=== PATIENT | female | born 1945 | race Caucasian/White ===

== ENCOUNTER → 2016-11-17 | Outpatient (CLI) | payer OTHER ==
[~2016-11-17] MED LIST: CALC500C3 PO; CHOL1000 PO; DICL1GEL34 TOP; DIPH1TAB87 PO; INDSR/60 PO; LORA10TA6 PO; PANT20TA2 PO; RIZA10TA18 PO
[2016-11-17 15:00] LABS: ALB/GLOB RATIO 1.1 (0.9-2); ALT/SGPT 15 U/L (12-78); AST/SGOT 22 U/L (15-37); BLOOD UREA NITROGEN 16 mg/dl (7-18); BUN/CREATININE RATIO 18.7 (10-20); CALCIUM 8.9 mg/dl (8.5-10.1); CARBON DIOXIDE 23 mmol/L (21-32); CHLORIDE 104 mmol/L (98-107); CREATININE 0.83 mg/dl (0.60-1.20); GLUCOSE 82 mg/dl (70-99); SODIUM 138 mmol/L (136-145)
[2016-11-17 15:03] LABS: ALKALINE PHOSPHATASE 53 U/L (45-117)
== END | disposition home or self-care (01) ==
LOC: C.LABBC 09:14
PROVIDERS: ATTEND Internal Medicine
DX: R03.0 Elevated blood-pressure reading, without diagnosis of hypertension (principal)

== ENCOUNTER → 2017-02-18 | Outpatient (CLI) | payer OTHER ==
[~2017-02-18] MED LIST changes: +LORA10TA5 PO; -LORA10TA6 PO
--- NOTE | 2017-02-18 13:03 | MAMMOGRAPHY REPORT ---
BILATERAL DIGITAL SCREENING MAMMOGRAM WITH CAD: 02/18/2017 CLINICAL HISTORY: Routine screening. Patient has no complaints. TECHNIQUE: Current study was also evaluated with a Computer Aided Detection (CAD) system. Bilatera l CC and MLO views were obtained. COMPARISON: Comparison is made to exams dated: 02/13/2016 mammogram, 02/11/2015 mammogram, 08/07/2014 m ammogram, 02/04/2014 mammogram, 01/07/2014 mammogram, and 07/02/2013 mammogram - [facility]. BREAST COMPOSITION: There are scattered areas of fibroglandular density in both breasts. FINDINGS: No suspicious masses, calcifications, or areas of architectural distortion are noted in e ither breast. There has been no significant interval change compared to prior exams. Scattered bilat eral benign-appearing calcifications are not significantly changed. A biopsy marker clip is again n oted in the left upper outer quadrant. IMPRESSION: ACR BI-RADS CATEGORY 2: BENIGN There is no mammographic evidence of malignancy. A 1 year screening mammogram is recommended. The p atient will receive written notification of the results. Approximately 10% of breast cancers are not detected with mammography. A negative mammographic repor t should not delay biopsy if a clinically suggestive mass is present. Ramya Pérez M.D. ah/:02/18/2017 07:38:25 Restaurant Maintenance Technician: Yi WATERS(R)(M), [facility] letter sent: Normal 1/2 BI-RADS Code: ACR BI-RADS Category 2: Benign
== END | disposition home or self-care (01) ==
LOC: C.MAMM 07:10
PROVIDERS: ATTEND Internal Medicine
DX: Z12.31 Encounter for screening mammogram for malignant neoplasm of breast (principal)

== ENCOUNTER → 2017-06-10 | Outpatient (CLI) | payer OTHER ==
[~2017-06-10] MED LIST changes: +DIPH1TAB PO; -DIPH1TAB87 PO; +PANT20TA PO; -PANT20TA2 PO
[2017-06-10 10:07] LABS: ALT/SGPT 17 U/L (12-78); AST/SGOT 19 U/L (15-37); BLOOD UREA NITROGEN 22 mg/dl (7-18); BUN/CREATININE RATIO 29.4 (10-20); CALCIUM 9.2 mg/dl (8.5-10.1); CARBON DIOXIDE 32 mmol/L (21-32); CHLORIDE 103 mmol/L (98-107); CREATININE 0.76 mg/dl (0.60-1.20); GLUCOSE 79 mg/dl (70-99); POTASSIUM 3.8 mmol/L (3.5-5.1); SODIUM 137 mmol/L (136-145)
[2017-06-10 10:10] LABS: ALB/GLOB RATIO 1.1 (0.9-2); ALKALINE PHOSPHATASE 64 U/L (45-117)
== END | disposition home or self-care (01) ==
LOC: C.LAB 09:01
PROVIDERS: ATTEND Internal Medicine
DX: M81.0 Age-related osteoporosis without current pathological fracture (principal)

== ENCOUNTER 2017-06-18 18:04 | Inpatient (IN) | payer OTHER ==
[~2017-06-18] VITALS: Ht 157.5 cm; Wt 67.5 kg
[~2017-06-18 18:04] MED LIST changes: -CALC500C3 PO; -CHOL1000 PO; -DICL1GEL34 TOP; -INDSR/60 PO
[2017-06-18] MEDS ORDERED: SODIUM CHLORIDE 0.9% 1000ML 1,000 ML IV STA (18:25)
[2017-06-18 18:44] LABS: BASO % 0.5 %; BASO ABS # 0.03 K/uL (0-0.2); COMPLETE YES; EOS % 2.8 %; HEMATOCRIT 38.4 % (37-47); IG% 0.4 %; LYMPH % 34.6 %; LYMPH ABS # 1.97 K/uL (1.2-3.4); MEAN CELL VOLUME 91.2 fL (80-100); MEAN CORPUSCULAR HEMOGLOBIN 30.6 pg (25-34); MEAN CORPUSCULAR HGB CONC 33.6 g/dl (32-36); MEAN PLATELET VOLUME 9.4 fL (7.4-10.4); MONO % 11.6 %; NEUT % 50.1 %; PLATELET COUNT 234 K/uL (130-400); RED BLOOD COUNT 4.21 M/uL (4.2-5.4); WHITE BLOOD COUNT 5.69 K/uL (4.8-10.8)
[2017-06-18 18:54] LABS: PARTIAL THROMBOPLASTIN RATIO 1.1; PROTHROMBIN TIME (PATIENT) 10.5 SECONDS (9.0-12.0)
[2017-06-18 19:02] LABS: ALT/SGPT 18 U/L (12-78); AST/SGOT 20 U/L (15-37); BLOOD UREA NITROGEN 25 mg/dl (7-18); BUN/CREATININE RATIO 24.8 (10-20); CALCIUM 8.9 mg/dl (8.5-10.1); CARBON DIOXIDE 27 mmol/L (21-32); CHLORIDE 102 mmol/L (98-107); GLUCOSE 93 mg/dl (70-99); MAGNESIUM 2.2 mg/dl (1.8-2.4); POTASSIUM 4.1 mmol/L (3.5-5.1); SODIUM 135 mmol/L (136-145)
[2017-06-18 19:13] LABS: ALKALINE PHOSPHATASE 86 U/L (45-117)
--- NOTE | 2017-06-18 19:26 | DIAGNOSTIC IMAGING REPORT ---
CT HEAD WITHOUT CONTRAST (CT) CLINICAL HISTORY: Syncope. Head trauma. COMPARISON STUDY: 06/06/2015 TECHNIQUE: Axial CT of the brain is performed from the vertex to the skull base. IV contrast was not administered for this examination. A dose lowering technique was utilized adhering to the principles of ALARA. CT DOSE: 1067.62 mGy.cm FINDINGS: No intra or extra-axial mass lesions are visualized. There is no CT evidence of acute cortical infarction. There is no evidence of midline shift. There is no acute hemorrhage. No calvarial fractures are visualized. There are patchy white matter hypodensities likely on a small vessel basis. There is no evidence of pathologic ventricular dilatation. There is no evidence of acute sinusitis. There is a right parietal scalp hematoma. IMPRESSION: 1. Right parietal scalp hematoma 2. No evidence of acute intracranial injury Electronically signed by: Sanford Bronson M.D. 06/18/2017 7:24 PM Dictated Date/Time: 06/18/2017 7:22 PM
--- NOTE | 2017-06-18 19:28 | DIAGNOSTIC IMAGING REPORT ---
CT OF THE CERVICAL SPINE CLINICAL HISTORY: Neck pain status post trauma COMPARISON STUDY: May 22, 2015 CT DOSE: TECHNIQUE: CT scan of the cervical spine was performed from the skull base to the thoracic inlet. Images are reviewed in the axial, sagittal, and coronal planes. IV contrast was not administered for this examination. A dose lowering technique was utilized adhering to the principles of ALARA. FINDINGS: The visualized portions of the lung apices reveal no evidence of pneumothorax. There is a trace right mastoid effusion, similar to the prior study The prevertebral soft tissues are normal. No fractures or subluxations are visualized. There are multilevel degenerative changes IMPRESSION: No evidence of acute fracture or traumatic subluxation. Electronically signed by: Sanford Bronson M.D. 06/18/2017 7:27 PM Dictated Date/Time: 06/18/2017 7:24 PM
[2017-06-18] MEDS ORDERED: CHOL1000 PO (19:37)
[2017-06-18] MEDS ORDERED: CALC500C3 PO (19:37)
[2017-06-18] MEDS ORDERED: INDSR/60 PO (19:37)
[2017-06-18] MEDS ORDERED: DICL1GEL34 TOP (19:37)
[2017-06-18] MEDS ORDERED: ALUMINUM/MAGNESIUM/SIMETH (MAALOX MAX) 30 ML UDC PO PRN (20:30)
[2017-06-18] MEDS ORDERED: POLYETHYLENE (MIRALAX) 17 GM PACK PO PRN (20:30)
[2017-06-18] MEDS ORDERED: ZOLPIDEM TARTRATE 5 MG TAB PO PRN (20:30)
[2017-06-18] MEDS ORDERED: MAGNESIUM HYDROXIDE SUSP 30 ML UDC PO PRN (20:30)
[2017-06-18] MEDS ORDERED: ONDANSETRON INJ 2 MG/ML 2 ML VIAL IV PRN (20:30)
[2017-06-18] MEDS ORDERED: HydrALAZINE HCL 20 MG/ML VIAL IV. PRN (20:45)
--- NOTE | 2017-06-18 20:47 | DIAGNOSTIC IMAGING REPORT ---
CHEST ONE VIEW PORTABLE CLINICAL HISTORY: Weakness COMPARISON STUDY: No previous studies for comparison. FINDINGS: The study is rotated. The heart is at the upper limits of normal in size. There is no failure. There is no focal pulmonary consolidation. There are no pleural effusions.[ IMPRESSION: AP portable study. No acute findings. Electronically signed by: Sanford Bronson M.D. 06/18/2017 8:46 PM Dictated Date/Time: 06/18/2017 8:45 PM
[2017-06-18] MEDS ORDERED: HydrALAZINE HCL 20 MG/ML VIAL ONE (20:52)
--- NOTE | 2017-06-18 20:58 | History and Physical ---
History & Physical Date & Time of Service: Jun 18, 2017 at 20:37 Chief Complaint: Syncope, Fall, Primary Care Physician: Tiago Martinez M.D. History of Present Illness Source: patient 72 y/o F Hx HTN, fall with LOC 05/29 leading to a subdural hematoma. Pt was outdoors when she may have become lightheaded and collapsed on the ground. She suffered head trauma and brief LOC although it is unclear if syncope preceded LOC or if she fell and lost consciousness due to head trauma. She presented with identical complaints 05/29. The H&P reviewed from that time states that she had suffered a mechanical fall followed by head trauma and LOC. When EMS arrived at the seen, it is reported that she was exhibiting an irregular, tachycardic rhythm - suspected AF. This was not recorded on a rhythm strip and she is in a normal sinus rhythm on arrival to the ER. Initial labs reveal a slightly elevated TSH. She suffered a R scalp hematoma. Past Medical/Surgical History Medical Problems: (1) Chronic headaches Status: Chronic (2) HTN (hypertension) Status: Chronic (3) Intracranial bleed Status: Resolved Family History No significant family history Social History Smoking Status: Never Smoker Drug Use: none Marital Status: Occupational Status: retired Multi-Drug Resistant Organisms History of MDRO: No Allergies Coded Allergies: Sulfa Antibiotics (Verified Allergy, Mild, RASH, 06/18/17) Penicillins (Verified Allergy, Unknown, RASH, 06/18/17) Home Medications Scheduled Calcium Carbonate (Tums), 1 TAB PO BID Cholecalciferol (Vitamin D3), 1 TAB PO HS Diclofenac Sodium (Topical) (Diclofenac Sodium), 1 APPLN TOP HS Loratadine (Claritin), 10 MG PO DAILY Pantoprazole Sodium (Protonix), 20 MG PO DAILY Propranolol Hcl (Propranolol ER), 60 MG PO HS Scheduled PRN Diphenhydramine Hcl (Benadryl Allergy), 25 MG PO UD PRN for ALLERGIC REACTION Rizatriptan Benzoate (Maxalt), 10 MG PO for Pain Review of Systems Constitutional: + fatigue, + problem reported (insomnia), No fever, No chills, No sweats, No weight loss, No weakness Eyes: No worsening of vision, No eye pain ENT: No hearing loss, No nasal symptoms Respiratory: No cough, No sputum, No wheezing Cardiovascular: No chest pain, No PND Abdomen: No pain, No nausea, No vomiting Musculoskeletal: No joint pain Genitourinary - Female: No dysuria, No urinary frequency, No urinary urgency Neurologic: + problem reported (LOC - syncope vs head trauma-related), No memory loss Psychiatric: + insomnia, No depression symptoms Endocrine: No fatigue, No excessive thirst Hematologic / Lymphatic: No abnormal bleeding/bruising Integumentary: + problem reported (dry skin), No rash Allergic / Immunologic: No environmental allergies Physical Exam Vital Signs Date Time Temp Pulse Resp B/P (MAP) Pulse Ox O2 Delivery O2 Flow Rate FiO2 06/18/17 19:10 61 16 170/80 98 Room Air 06/18/17 18:36 61 16 200/110 98 Room Air 58 190/80 56 170/70 06/18/17 18:12 37.0 62 20 220/100 99 Room Air 06/18/17 18:09 60 General Appearance: WD/WN, no apparent distress Head: normocephalic, + pertinent finding (Large hematoma - R parietal) Eyes: normal inspection, PERRL, EOMI ENT: normal ENT inspection, pharynx normal Neck: supple, thyroid normal, no JVD, no carotid bruits Respiratory/Chest: chest non-tender, lungs clear, normal breath sounds, no respiratory distress, no accessory muscle use Cardiovascular: regular rate, rhythm, no edema, no gallop Abdomen/GI: normal bowel sounds, non tender, soft Back: normal inspection, no CVA tenderness, + pertinent finding (Marked kyphosis) Neurologic/Psych: 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, no motor/sensory deficits, alert, normal mood/affect, normal reflexes, oriented x 3 Skin: normal color, warm/dry Diagnostics Laboratory Results Results Past 24 Hours Test 06/18/17 18:30 Range/Units White Blood Count 5.69 4.8-10.8 K/uL Red Blood Count 4.21 4.2-5.4 M/uL Hemoglobin 12.9 12.0-16.0 g/dL Hematocrit 38.4 37-47 % Mean Corpuscular Volume 91.2 80-100 fL Mean Corpuscular Hemoglobin 30.6 25-34 pg Mean Corpuscular Hemoglobin Concent 33.6 32-36 g/dl Platelet Count 234 130-400 K/uL Mean Platelet Volume 9.4 7.4-10.4 fL Neutrophils (%) (Auto) 50.1 % Lymphocytes (%) (Auto) 34.6 % Monocytes (%) (Auto) 11.6 % Eosinophils (%) (Auto) 2.8 % Basophils (%) (Auto) 0.5 % Neutrophils # (Auto) 2.85 1.4-6.5 K/uL Lymphocytes # (Auto) 1.97 1.2-3.4 K/uL Monocytes # (Auto) 0.66 0.11-0.59 K/uL Eosinophils # (Auto) 0.16 0-0.5 K/uL Basophils # (Auto) 0.03 0-0.2 K/uL RDW Standard Deviation 42.9 36.4-46.3 fL RDW Coefficient of Variation 12.9 11.5-14.5 % Immature Granulocyte % (Auto) 0.4 % Immature Granulocyte # (Auto) 0.02 0.00-0.02 K/uL Prothrombin Time 10.5 9.0-12.0 SECONDS Prothromb Time International Ratio 1.0 0.9-1.1 Activated Partial Thromboplast Time 27.5 21.0-31.0 SECONDS Partial Thromboplastin Ratio 1.1 Sodium Level 135 136-145 mmol/L Potassium Level 4.1 3.5-5.1 mmol/L Chloride Level 102 98-107 mmol/L Carbon Dioxide Level 27 21-32 mmol/L Anion Gap 6.0 3-11 mmol/L Blood Urea Nitrogen 25 7-18 mg/dl Creatinine 1.00 0.60-1.20 mg/dl Est Creatinine Clear Calc Drug Dose 46.0 ml/min Estimated GFR () 64.3 Estimated GFR (Non- 55.5 BUN/Creatinine Ratio 24.8 10-20 Random Glucose 93 70-99 mg/dl Calcium Level 8.9 8.5-10.1 mg/dl Magnesium Level 2.2 1.8-2.4 mg/dl Total Bilirubin 0.3 0.2-1 mg/dl Direct Bilirubin < 0.1 0-0.2 mg/dl Aspartate Amino Transf (AST/SGOT) 20 15-37 U/L Alanine Aminotransferase (ALT/SGPT) 18 12-78 U/L Alkaline Phosphatase 86 45-117 U/L Total Protein 7.3 6.4-8.2 gm/dl Albumin 3.7 3.4-5.0 gm/dl Lipase 152 73-393 U/L Thyroid Stimulating Hormone (TSH) 7.920 0.300-4.500 uIu/ml Diagnostic Radiology CT cervical spine: : No evidence of acute fracture or traumatic subluxation CT head: 1. Right parietal scalp hematoma 2. No evidence of acute intracranial injury EKG NSR, LVH Impression Assessment and Plan 72 y/o F Hx HTN, fall with LOC 05/29 leading to a subdural hematoma. Pt was outdoors when she may have become lightheaded and collapsed on the ground. She suffered head trauma and brief LOC although it is unclear if syncope preceded LOC or if she fell and lost consciousness due to head trauma. She presented with identical complaints 05/29. The H&P reviewed from that time states that she had suffered a mechanical fall followed by head trauma and LOC. When EMS arrived at the seen, it is reported that she was exhibiting an irregular, tachycardic rhythm - suspected AF. This was not recorded on a rhythm strip and she is in a normal sinus rhythm on arrival to the ER. Initial labs reveal a slightly elevated TSH. 1) Syncope vs head trauma and LOC/concussion - this is the second such episode in 1 month and there was some concern for tachyarrhythmia by EMS on initial evaluation. She will be monitored on telemetry overnight and we will obtain an echo. She may need a halter monitor going forward. 2) HTN - an elevated BP has coincided with both hospitalizations. She does not normally take an antihypertensive. She has LVH on her EKG which may indicate that this is chronic and poorly controlled. We will provide PRN Hydralazine and continue her HS Propranolol which is primarily prescribed for migraines. An echo is pending and her pressure should be trended to determine if she needs additional outpt Tx. 3) Elevated TSH - she does report some dry skin and insomnia but not constipation. This may however, make her susceptible to AF. We will obtain a T3 , T4 and likely defer to her PCP for treatment. Full code - SCDs only due to head trauma/hematoma Total time for this admit including review of labs, meds, EKG, imaging - discussion with pt and ER attending - 35 min Level of Care Telemetry Resuscitation Status FULL RESUSCITATION VTE Prophylaxis VTE Risk Assessment Done? Y/N: Yes Risk Level: Low Given or contraindicated: SCD's
[2017-06-18] MEDS ORDERED: IV FLUIDS COMPLETED PRN (21:00)
[2017-06-18 22:13] VITALS: BP 151/68; PULSE 64; TEMP 37.2; O2SAT 97; Ht 157.5 cm; Wt 67.5 kg
[2017-06-18] MEDS: PROPRANOLOL HCL 60 MG LA CAP PO SCH (22:58)
[2017-06-18] MEDS: CALCIUM CARBONATE 500 MG CHEWABLE PO SCH (22:58)
[2017-06-18] MEDS: CHOLECALCIFEROL 1000 INTER.UNIT TAB PO SCH (22:58)
[2017-06-18] MEDS: ACETAMINOPHEN 325 MG TAB PO PRN (22:59)
[2017-06-18 23:21] LABS: URINE APPEARANCE CLEAR (CLEAR); URINE BILIRUBIN NEG (NEG); URINE COLOR YELLOW; URINE EPITHELIAL CELL AUTO >30 /lpf (0-5); URINE NITRITE NEG (NEG); URINE PH 7.5 (4.5-7.5); URINE SPECIFIC GRAVITY 1.014 (1.000-1.030); UROBILINOGEN NEG (NEG)
[2017-06-18 23:23] LABS: MANUAL MICROSCOPIC REQUIRED? NO; REVIEW REQ? NO
[2017-06-19] VITALS: BP 113/65; PULSE 57; TEMP 36.6; O2SAT 98
--- NOTE | 2017-06-19 | EMERGENCY ROOM VISIT NOTE ---
History Report prepared by Arlet: Sandy Stewart Under the Supervision of: Dr. Clive Mcfadden M.D. First contact with patient: 18:09 Stated Complaint: SYNCOPE, FALL, History of Present Illness The patient is a 72 year old female who presents to the Emergency Room with complaints of a sudden syncopal episode that occurred just prior to arrival. Per nursing staff, the patient was walking [place] when she suddenly fell, had a brief loss of consciousness, and hit her head. Nursing staff reports that the patient was evaluated by EMS and was found to be in atrial fibrillation, however on monitor here she was found to be in normal sinus rhythm, and prehospital EKG was not available to us. Nursing staff reports that the patient injured her right elbow, reporting an abrasion. Nursing staff states that the patient has been complaining of upper back pain and was placed in a cervical collar and brought to the emergency department for further treatment and evaluation. The patient states that she parked her car downtown and was walking towards [email or web address]. She states that she thought she had crossed the street but is unsure now. The patient states that recently she has been under increased stress. She reports that in the past she has had episodes of syncope due to various events. The patient reports that in the past she has become dizzy and lost consciousness. The patient reports a headache at this time due to the fall. Pt denies fevers, chills, diaphoresis, visual changes, neck pain, chest pain, breathing difficulties, nausea, vomiting , abdominal pain, melena, hematochezia, urinary symptoms, numbness, weakness, lymphadenopathy, rash, or other complaints. Source of History: patient Onset: prior to arrival Position: other (global) Quality: other (syncopal episode) Timing: other (sudden) Associated Symptoms: + headache, + back pain Review of Systems See HPI for pertinent positives and negatives. A total of ten systems were reviewed and were otherwise negative. Past Medical & Surgical Medical Problems: (1) Chronic headaches (2) Head trauma (3) HTN (hypertension) (4) Intracranial bleed (5) Osteoporosis (6) Syncope Family History No significant family history Social History Smoking Status: Never Smoker Alcohol Use: none Drug Use: none Marital Status: Housing Status: lives alone Occupation Status: retired Current/Historical Medications Scheduled Calcium Carbonate (Tums), 1 TAB PO BID Cholecalciferol (Vitamin D3), 1 TAB PO HS Diclofenac Sodium (Topical) (Diclofenac Sodium), 1 APPLN TOP HS Loratadine (Claritin), 10 MG PO DAILY Pantoprazole Sodium (Protonix), 20 MG PO DAILY Propranolol Hcl (Propranolol ER), 60 MG PO HS Scheduled PRN Diphenhydramine Hcl (Benadryl Allergy), 25 MG PO UD PRN for ALLERGIC REACTION Rizatriptan Benzoate (Maxalt), 10 MG PO for Pain Allergies Coded Allergies: Sulfa Antibiotics (Verified Allergy, Mild, RASH, 06/18/17) Penicillins (Verified Allergy, Unknown, RASH, 06/18/17) Physical Exam Vital Signs Date Time Temp Pulse Resp B/P (MAP) Pulse Ox O2 Delivery O2 Flow Rate FiO2 06/18/17 19:10 61 16 170/80 98 Room Air 06/18/17 18:36 61 16 200/110 98 Room Air 58 190/80 56 170/70 06/18/17 18:12 37.0 62 20 220/100 99 Room Air 06/18/17 18:09 60 Physical Exam GENERAL: Awake, alert, well appearing, no distress HEAD: Normocephalic, atraumatic. No hong sign. No raccoon eyes. EYES: Normal conjunctiva. PERRL. EARS: External ears normal. Right TM normal. Left TM normal. NOSE: Atraumatic OROPHARYNX: Lips, tongue, and mucosa unremarkable. No erythema or exudate. NECK: Cervical collar in place, no tenderness posteriorly. No tracheal deviation or JVD. No posterior midline tenderness. No step offs noted. RESPIRATORY: CTA bilaterally CARDIAC: Regular rate, normal rhythm. ABDOMEN: Inspection reveals no abnormalities. Soft, non distended. No tenderness to palpation. No hernias. BACK: No midline step offs or tenderness to palpation. Unremarkable. PELVIS: Stable to rock. SKIN: Normal. LYMPH: No adenopathy. MUSCULOSKELETAL: Abrasion and contusion to the right elbow, no edema, good range of motion. Left upper and bilateral lower extremities are atraumatic. NEURO: GCS 15. Normal sensorium. No sensory or motor deficits noted. Medical Decision & Procedures ER Provider Diagnostic Interpretation: Radiology results as stated below per my review and radiologist interpretation: CT HEAD WITHOUT CONTRAST (CT) CLINICAL HISTORY: Syncope. Head trauma. COMPARISON STUDY: 06/06/2015 TECHNIQUE: Axial CT of the brain is performed from the vertex to the skull base. IV contrast was not administered for this examination. A dose lowering technique was utilized adhering to the principles of ALARA. CT DOSE: 1067.62 mGy.cm FINDINGS: No intra or extra-axial mass lesions are visualized. There is no CT evidence of acute cortical infarction. There is no evidence of midline shift. There is no acute hemorrhage. No calvarial fractures are visualized. There are patchy white matter hypodensities likely on a small vessel basis. There is no evidence of pathologic ventricular dilatation. There is no evidence of acute sinusitis. There is a right parietal scalp hematoma. IMPRESSION: 1. Right parietal scalp hematoma 2. No evidence of acute intracranial injury Electronically signed by: Sanford Bronson M.D. 06/18/2017 7:24 PM Dictated Date/Time: 06/18/2017 7:22 PM CHEST ONE VIEW PORTABLE CLINICAL HISTORY: Weakness COMPARISON STUDY: No previous studies for comparison. FINDINGS: The study is rotated. The heart is at the upper limits of normal in size. There is no failure. There is no focal pulmonary consolidation. There are no pleural effusions.[ IMPRESSION: AP portable study. No acute findings. Electronically signed by: Sanford Bronson M.D. 06/18/2017 8:46 PM Dictated Date/Time: 06/18/2017 8:[address] OF THE CERVICAL SPINE CLINICAL HISTORY: Neck pain status post trauma COMPARISON STUDY: May 22, 2015 CT DOSE: TECHNIQUE: CT scan of the cervical spine was performed from the skull base to the thoracic inlet. Images are reviewed in the axial, sagittal, and coronal planes. IV contrast was not administered for this examination. A dose lowering technique was utilized adhering to the principles of ALARA. FINDINGS: The visualized portions of the lung apices reveal no evidence of pneumothorax. There is a trace right mastoid effusion, similar to the prior study The prevertebral soft tissues are normal. No fractures or subluxations are visualized. There are multilevel degenerative changes IMPRESSION: No evidence of acute fracture or traumatic subluxation. Electronically signed by: Sanford Bronson M.D. 06/18/2017 7:27 PM Dictated Date/Time: 06/18/2017 7:24 PM Laboratory Results 06/18/17 18:30 Red Blood Count 4.21, Mean Corpuscular Volume 91.2, Mean Corpuscular Hemoglobin 30.6, Mean Corpuscular Hemoglobin Concent 33.6, Mean Platelet Volume 9.4, Neutrophils (%) (Auto) 50.1, Lymphocytes (%) (Auto) 34.6, Monocytes (%) (Auto) 11.6, Eosinophils (%) (Auto) 2.8, Basophils (%) (Auto) 0.5, Neutrophils # (Auto ) 2.85, Lymphocytes # (Auto) 1.97, Monocytes # (Auto) 0.66, Eosinophils # (Auto ) 0.16, Basophils # (Auto) 0.03 06/18/17 18:30 Test 06/18/17 18:30 White Blood Count 5.69 K/uL (4.8-10.8) Red Blood Count 4.21 M/uL (4.2-5.4) Hemoglobin 12.9 g/dL (12.0-16.0) Hematocrit 38.4 % (37-47) Mean Corpuscular Volume 91.2 fL (80-100) Mean Corpuscular Hemoglobin 30.6 pg (25-34) Mean Corpuscular Hemoglobin Concent 33.6 g/dl (32-36) Platelet Count 234 K/uL (130-400) Mean Platelet Volume 9.4 fL (7.4-10.4) Neutrophils (%) (Auto) 50.1 % Lymphocytes (%) (Auto) 34.6 % Monocytes (%) (Auto) 11.6 % Eosinophils (%) (Auto) 2.8 % Basophils (%) (Auto) 0.5 % Neutrophils # (Auto) 2.85 K/uL (1.4-6.5) Lymphocytes # (Auto) 1.97 K/uL (1.2-3.4) Monocytes # (Auto) 0.66 K/uL (0.11-0.59) Eosinophils # (Auto) 0.16 K/uL (0-0.5) Basophils # (Auto) 0.03 K/uL (0-0.2) RDW Standard Deviation 42.9 fL (36.4-46.3) RDW Coefficient of Variation 12.9 % (11.5-14.5) Immature Granulocyte % (Auto) 0.4 % Immature Granulocyte # (Auto) 0.02 K/uL (0.00-0.02) Prothrombin Time 10.5 SECONDS (9.0-12.0) Prothromb Time International Ratio 1.0 (0.9-1.1) Activated Partial Thromboplast Time 27.5 SECONDS (21.0-31.0) Partial Thromboplastin Ratio 1.1 Anion Gap 6.0 mmol/L (3-11) Est Creatinine Clear Calc Drug Dose 46.0 ml/min Estimated GFR () 64.3 Estimated GFR (Non- 55.5 BUN/Creatinine Ratio 24.8 (10-20) Calcium Level 8.9 mg/dl (8.5-10.1) Magnesium Level 2.2 mg/dl (1.8-2.4) Total Bilirubin 0.3 mg/dl (0.2-1) Direct Bilirubin < 0.1 mg/dl (0-0.2) Aspartate Amino Transf (AST/SGOT) 20 U/L (15-37) Alanine Aminotransferase (ALT/SGPT) 18 U/L (12-78) Alkaline Phosphatase 86 U/L (45-117) Total Protein 7.3 gm/dl (6.4-8.2) Albumin 3.7 gm/dl (3.4-5.0) Lipase 152 U/L (73-393) Thyroid Stimulating Hormone (TSH) 7.920 uIu/ml (0.300-4.500) Free Thyroxine 1.18 ng/dl (0.80-1.60) Total Triiodothyronine 0.89 ng/ml (0.60-1.81) Laboratory results reviewed by me Medications Administered Medications (Trade) Dose Ordered Sig/Racheal Route Start Time Stop Time Status Last Admin Dose Admin Sodium Chloride 1,000 ml @ 125 mls/hr Q8H STAT IV 06/18/17 18:25 06/18/17 21:54 DC 06/18/17 18:48 125 MLS/HR Acetaminophen (Tylenol Tab) 650 mg Q4H PRN PO 06/18/17 20:30 07/18/17 20:29 06/18/17 22:59 650 MG ECG Indication: syncope Rate (beats per minute): 62 Rhythm: normal sinus Findings: nonspecific-ST abn, no acute ischemic change, other (LVH) ED Course 1818: The patient was evaluated in room C5. A complete history and physical exam was performed. 1824: Ordered Sodium Chloride 1000 ml @ 125 mls/hr IV. 2009: I reevaluated the patient and she is doing well. I removed her cervical collar and she can successfully move her neck around. I discussed all the exam findings with her and I discussed the treatment plan. She verbalized complete understanding and agreement. She is going to be evaluated the treatment. 2022: I discussed the patients case with NUBIA Ratliff. He is going to evaluate the patient for further treatment. Medical Decision Triage Nursing notes reviewed. The patient's presentation and history were concerning for fall, CHI, and possible syncope. EMS also noted that the patient may have had a dysrhythmia but did not capture a 12-lead. Etiologies such as intracerebral event, vasovagal event, infection, hypoglycemia , electrolyte abnormalities, cardiac sources, toxicologic, neurologic, as well as others were entertained. Patient was evaluated. She was in a cervical collar. She had an ECG performed which revealed normal sinus rhythm. Blood work was obtained and imaging was ordered. The patient had an unremarkable CBC, chemistry panel, LFTs, and TSH. CT scan of the head and cervical spine did not reveal any significant findings other than a scalp hematoma. Patient was hydrated. Given the possible dysrhythmia and syncope further evaluation and management in the hospital will be necessary. Consultation made with internal medicine. The patient was evaluated in the Emergency Room for further management. Head Trauma GCS Score: 15 Medication Reconcilliation Current Medication List: was personally reviewed by me Blood Pressure Screening Patient's blood pressure: Elevated blood pressure Blood pressure disposition: Referred to PCP Consults Time Called: 2014 Consulting Physician: NUBIA Ratliff Returned Call: 2022 I discussed the patients case with NUBIA Ratliff. He is going to evaluate the patient for further treatment. Impression Primary Impression: Syncope Additional Impressions: Closed head injury questionable arrhythmia Scribe Attestation The scribe's documentation has been prepared under my direction and personally reviewed by me in its entirety. I confirm that the note above accurately reflects all work, treatment, procedures, and medical decision making performed by me. Departure Information Dispostion Being Evaluated By Hospitalist Referrals Tiago Martinez M.D. (PCP) Problem Qualifiers
[2017-06-19 04:54] VITALS: BP 106/64; PULSE 47; TEMP 36.8; O2SAT 97
[2017-06-19 07:24] VITALS: BP 136/62; PULSE 48; TEMP 36.8; O2SAT 97
[2017-06-19] MEDS: CALCIUM CARBONATE 500 MG CHEWABLE PO SCH ×2 (08:18→20:51)
[2017-06-19] MEDS: LORATADINE 10 MG TAB PO SCH (08:18)
[2017-06-19] MEDS: PANTOprazole SOD 40 MG TAB PO SCH (08:18)
--- NOTE | 2017-06-19 09:57 | Cardiology Consultation ---
Cardiology Consultation Date of Consultation: Jun 19, 2017. Requesting Physician: Dr. Briceño Reason for Consultation: Syncope, tachycardia Pt evaluation today including: conversation w/ patient, physical exam, lab review, review of studies, review of inpatient medication list History of Present Illness This is a 72-year-old woman who presented with an episode of loss of consciousness. She also has a history of reported loss of consciousness in May 2016 resulting in a fall and a subdural hematoma, at that time was felt that she had a mechanical fall followed by head trauma and there is a possibility she had atrial fibrillation at that time. She now presents with another episode , she was walking across the street when she became lightheaded and collapsed hitting her head and having brief loss of consciousness, although that particular sequence may not be correct as she only recalls walking down the street and then being picked up by rescue. There is mention in the chart that EMS found her in atrial fibrillation, as on the prior episode, however an EMS report is not available as yet in the chart. In the emergency room she was in sinus rhythm. She reports having episodes of syncope in the past, she believe she had perhaps 3 episodes over 2 or 3 years, never having them when she was younger. She may have intermittent lightheadedness although it is not clear, she does not have palpitations either during these episodes or at other times. She does not have exertional chest discomfort. She does not have shortness of breath or difficulty with exertion. Past Medical/Surgical History (1) Intracranial bleed (2) Syncope (3) HTN (hypertension) (4) Osteoporosis Family History No significant family history Social History Smoking Status: Never Smoker History of Alcohol Use: Yes (rarely, socially) Review of Systems Constitutional: No fever, No weight loss, No weakness Respiratory: No cough, No wheezing, No shortness of breath, No dyspnea on exertion Cardiac: + see HPI, No chest pain, No orthopnea, No PND, No edema, No palpitations Abdomen: No pain, No nausea, No vomiting, No diarrhea, No GI bleeding Female : No problem reported Neurologic: No paralysis, No weakness, No numbness/tingling, No balance problems Heme: No abnormal bleeding/bruising, No clotting problems Endo: No fatigue Skin: No problem reported All Other Systems: Reviewed and Negative Allergies Coded Allergies: Sulfa Antibiotics (Verified Allergy, Mild, RASH, 06/18/17) Penicillins (Verified Allergy, Unknown, RASH, 06/18/17) Medications Current Inpatient Medications Medications (Trade) Dose Ordered Sig/Racheal Route Start Time Stop Time Status Last Admin Dose Admin Calcium Carbonate (Tums Chew Tab) 500 mg BID PO 06/18/17 21:00 07/18/17 20:59 06/19/17 08:18 500 MG Cholecalciferol (Vitamin D Tab) 1,000 inter.unit HS PO 06/18/17 21:00 07/18/17 20:59 06/18/17 22:58 1,000 INTER.UNIT Loratadine (Claritin Tab) 10 mg DAILY PO 06/19/17 09:00 07/19/17 08:59 06/19/17 08:18 10 MG Propranolol HCl (Inderal La Cap) 60 mg HS PO 06/18/17 21:00 07/18/17 20:59 06/18/17 22:58 60 MG Pantoprazole Sodium (Protonix Tab) 40 mg DAILY PO 06/19/17 09:00 07/19/17 08:59 06/19/17 08:18 40 MG Acetaminophen (Tylenol Tab) 650 mg Q4H PRN PO 06/18/17 20:30 07/18/17 20:29 06/18/17 22:59 650 MG Al Hydrox/Mg Hydrox/Simethicone (Maalox Max Susp) 15 ml Q4H PRN PO 06/18/17 20:30 07/18/17 20:29 Magnesium Hydroxide (Milk Of Magnesia Susp) 30 ml Q12H PRN PO 06/18/17 20:30 07/18/17 20:29 Zolpidem Tartrate (Ambien Tab) 2.5 mg HSZ PRN PO 06/18/17 20:30 07/18/17 20:29 Ondansetron HCl (Zofran Inj) 4 mg Q6H PRN IV 06/18/17 20:30 07/18/17 20:29 Polyethylene (Miralax Powder Packet) 17 gm DAILY PRN PO 06/18/17 20:30 07/18/17 20:29 Hydralazine HCl (HydrALAZINE INJ) 5 mg Q8H PRN IV. 06/18/17 20:45 07/18/17 20:44 Miscellaneous (Iv Fluids Completed) 1 ea PRN PRN N/A 06/18/17 21:00 06/18/18 20:59 Physical Exam Vital Signs Past 12 Hours Date Time Temp Pulse Resp B/P (MAP) Pulse Ox O2 Delivery O2 Flow Rate FiO2 06/19/17 07:24 36.8 48 16 136/62 (86) 97 Room Air 06/19/17 04:54 36.8 47 18 106/64 (78) 97 Room Air 06/19/17 04:19 Room Air 06/19/17 00:03 Room Air 06/19/17 00:00 36.6 57 20 113/65 (81) 98 Room Air 06/18/17 22:13 37.2 64 16 151/68 97 Room Air Constitutional: General Apperance: heathly-appearing Level of Distress: NAD Psychiatric: Mental Status: active & alert Head: normocephalic Eyes: EOM: EOMI ENMT: normal ENT inspection, hearing grossly normal Neck: supple, no masses Lungs: Respiratory effort: no dyspnea, good air movement Auscultation: breath sounds normal, no wheezing Cardiovascular: Heart Auscultation: RRR, no murmurs, no rubs, no gallops Peripheral Pulses: Bruits: none appreciated Abdomen: Bowel Sounds: normal Inspection & Palpation: soft, no tenderness, guarding & rebound, no masses Musculoskeletal: normal strength (5/5 throughout) Extremities: no edema Neurologic: Cranial Nerves: grossly intact Sensation: grossly intact Data Laboratory Results: Last 24 Hours Test 06/18/17 18:30 06/18/17 23:10 White Blood Count 5.69 K/uL Red Blood Count 4.21 M/uL Hemoglobin 12.9 g/dL Hematocrit 38.4 % Mean Corpuscular Volume 91.2 fL Mean Corpuscular Hemoglobin 30.6 pg Mean Corpuscular Hemoglobin Concent 33.6 g/dl Platelet Count 234 K/uL Mean Platelet Volume 9.4 fL Neutrophils (%) (Auto) 50.1 % Lymphocytes (%) (Auto) 34.6 % Monocytes (%) (Auto) 11.6 % Eosinophils (%) (Auto) 2.8 % Basophils (%) (Auto) 0.5 % Neutrophils # (Auto) 2.85 K/uL Lymphocytes # (Auto) 1.97 K/uL Monocytes # (Auto) 0.66 K/uL Eosinophils # (Auto) 0.16 K/uL Basophils # (Auto) 0.03 K/uL RDW Standard Deviation 42.9 fL RDW Coefficient of Variation 12.9 % Immature Granulocyte % (Auto) 0.4 % Immature Granulocyte # (Auto) 0.02 K/uL Prothrombin Time 10.5 SECONDS Prothromb Time International Ratio 1.0 Activated Partial Thromboplast Time 27.5 SECONDS Partial Thromboplastin Ratio 1.1 Sodium Level 135 mmol/L Potassium Level 4.1 mmol/L Chloride Level 102 mmol/L Carbon Dioxide Level 27 mmol/L Anion Gap 6.0 mmol/L Blood Urea Nitrogen 25 mg/dl Creatinine 1.00 mg/dl Est Creatinine Clear Calc Drug Dose 46.0 ml/min Estimated GFR () 64.3 Estimated GFR (Non- 55.5 BUN/Creatinine Ratio 24.8 Random Glucose 93 mg/dl Calcium Level 8.9 mg/dl Magnesium Level 2.2 mg/dl Total Bilirubin 0.3 mg/dl Direct Bilirubin < 0.1 mg/dl Aspartate Amino Transf (AST/SGOT) 20 U/L Alanine Aminotransferase (ALT/SGPT) 18 U/L Alkaline Phosphatase 86 U/L Total Protein 7.3 gm/dl Albumin 3.7 gm/dl Lipase 152 U/L Thyroid Stimulating Hormone (TSH) 7.920 uIu/ml Free Thyroxine 1.18 ng/dl Total Triiodothyronine 0.89 ng/ml Urine Color YELLOW Urine Appearance CLEAR Urine pH 7.5 Urine Specific [place] 1.014 Urine Protein NEG Urine Glucose (UA) NEG Urine Ketones NEG Urine Occult Blood NEG Urine Nitrite NEG Urine Bilirubin NEG Urine Urobilinogen NEG Urine Leukocyte Esterase MODERATE Urine WBC (Auto) 5-10 /hpf Urine RBC (Auto) 0-4 /hpf Urine Hyaline Casts (Auto) 0 /lpf Urine Epithelial Cells (Auto) >30 /lpf Urine Bacteria (Auto) NEG EKG: Sinus rhythm, no significant abnormality Telemetry reviewed: Probably sinus rhythm, several episodes of some type of PAT , they're brief (5-8 beats) could be SVT. Assessment & Plan #1. Falling: It sounds as though at least some of her episodes of falling are due to loss of consciousness, most notably this recent episode. #2. Loss of consciousness: The cause is not clear, there is a report that she had atrial fibrillation both on this event and the one in May 2016, the prior event she feels was due to being knocked over, this clearly was not. I have not seen those strips. She does however have periods of PAT on telemetry and she has a somewhat slow heart rate at night. She is on propranolol however which may explain the slow heart rate and is not slow enough to cause problems, in the low 40s, but could be lower at times potentially. This could therefore be sick sinus syndrome or could be some type of SVT or atrial fibrillation causing hypotension and loss of consciousness. We do need to monitor her for an arrhythmia, I would keep her on telemetry here if she goes home I will arrange an outpatient event monitor for a month and consideration for a loop recorder if that is negative. I would be reluctant to treat the tachycardia since she is bradycardic on propranolol and I don't know whether her event was due to tachycardia or bradycardia. Thank you for allowing me to participate in her care.
[2017-06-19 11:46] VITALS: BP 122/77; PULSE 54; TEMP 36.6; O2SAT 96
--- NOTE | 2017-06-19 15:33 | Progress Note ---
Subjective Date of Service: Jun 19, 2017. Subjective Pt evaluation today including: conversation w/ patient, conversation w/ family , physical exam, chart review, lab review, review of studies, review of inpatient medication list Voiding: no voiding problems Mild headache, otherwise doing well, no blurry vision, no double vision, no anywhere pain, Eating and voiding good Problem List Medical Problems: (1) Closed head injury Status: Acute (2) Contusion of multiple sites Status: Acute (3) Fall Status: Acute (4) Fracture of right clavicle Status: Acute Review of Systems Constitutional: No fever, No chills, No sweats, No weight loss, No weakness, No fatigue, No problem reported Eyes: No worsening of vision, No eye pain, No redness, No discharge, No diplopia ENT: No hearing loss, No unusual epistaxis, No nasal symptoms, No sore throat, No tinnitus, No dental problems, No trouble swallowing Respiratory: No cough, No sputum, No wheezing, No shortness of breath, No dyspnea on exertion, No dyspnea at rest, No hemoptysis Cardiac: No chest pain, No orthopnea, No PND, No edema, No claudication, No palpitations Abdomen: No pain, No nausea, No vomiting, No diarrhea, No constipation Musculoskeletal: No joint pain, No muscle pain, No swelling, No calf pain Female : No dysuria, No urinary frequency, No hematuria, No incontinence, No abnormal vaginal bleeding, No vaginal discharge Neurologic: No memory loss, No paralysis, No weakness, No numbness/tingling, No vertigo, No balance problems Psychiatric: No depression symptoms, No anhedonism, No anxiety, No insomnia, No substance abuse Heme: No abnormal bleeding/bruising, No clotting problems, No swollen lymph nodes, No night sweats Endo: No fatigue, No excessive thirst, No excessive urination Skin: + problem reported (right scalp tender and swelling), No rash, No itch, No new/changing skin lesions, No color change, No bleeding Objective Vital Signs Date Time Temp Pulse Resp B/P (MAP) Pulse Ox O2 Delivery O2 Flow Rate FiO2 06/19/17 12:00 Room Air 06/19/17 11:46 36.6 54 16 122/77 (92) 96 Room Air 06/19/17 11:27 Room Air 06/19/17 07:24 36.8 48 16 136/62 (86) 97 Room Air 06/19/17 04:54 36.8 47 18 106/64 (78) 97 Room Air 06/19/17 04:19 Room Air 06/19/17 00:03 Room Air 06/19/17 00:00 36.6 57 20 113/65 (81) 98 Room Air 06/18/17 22:13 37.2 64 16 151/68 97 Room Air 06/18/17 21:24 72 16 172/80 98 Room Air 06/18/17 20:50 99 Room Air 06/18/17 20:48 62 18 201/87 98 Room Air 06/18/17 19:10 61 16 170/80 98 Room Air 06/18/17 18:36 61 16 200/110 98 Room Air 58 190/80 56 170/70 06/18/17 18:12 37.0 62 20 220/100 99 Room Air 06/18/17 18:09 60 Physical Exam General Appearance: WD/WN, no apparent distress, + obese, + pertinent finding ( pleasant and conversational) Eyes: normal inspection, PERRL, EOMI, sclerae normal, + pertinent finding ( right scalp minimal swelling and tender) ENT: normal ENT inspection, hearing grossly normal, pharynx normal Neck: supple, no adenopathy, thyroid normal, no JVD, no carotid bruits, trachea midline Respiratory/Chest: chest non-tender, lungs clear, normal breath sounds, no respiratory distress, no accessory muscle use Cardiovascular: regular rate, rhythm, no edema, no gallop, no JVD, no murmur Abdomen: normal bowel sounds, non tender, soft, no organomegaly, no pulsatile mass Extremities: normal range of motion, non-tender, normal inspection, no pedal edema, no calf tenderness, normal capillary refill, pelvis stable Neurologic/Psychiatric: saw filer II-XII nml as tested, no motor/sensory deficits, alert, normal mood/affect, oriented x 3 Skin: normal color, warm/dry, no rash Lymphatic: no adenopathy Laboratory Results Last 24 Hours Test 06/18/17 18:30 06/18/17 23:10 White Blood Count 5.69 K/uL Red Blood Count 4.21 M/uL Hemoglobin 12.9 g/dL Hematocrit 38.4 % Mean Corpuscular Volume 91.2 fL Mean Corpuscular Hemoglobin 30.6 pg Mean Corpuscular Hemoglobin Concent 33.6 g/dl Platelet Count 234 K/uL Mean Platelet Volume 9.4 fL Neutrophils (%) (Auto) 50.1 % Lymphocytes (%) (Auto) 34.6 % Monocytes (%) (Auto) 11.6 % Eosinophils (%) (Auto) 2.8 % Basophils (%) (Auto) 0.5 % Neutrophils # (Auto) 2.85 K/uL Lymphocytes # (Auto) 1.97 K/uL Monocytes # (Auto) 0.66 K/uL Eosinophils # (Auto) 0.16 K/uL Basophils # (Auto) 0.03 K/uL RDW Standard Deviation 42.9 fL RDW Coefficient of Variation 12.9 % Immature Granulocyte % (Auto) 0.4 % Immature Granulocyte # (Auto) 0.02 K/uL Prothrombin Time 10.5 SECONDS Prothromb Time International Ratio 1.0 Activated Partial Thromboplast Time 27.5 SECONDS Partial Thromboplastin Ratio 1.1 Sodium Level 135 mmol/L Potassium Level 4.1 mmol/L Chloride Level 102 mmol/L Carbon Dioxide Level 27 mmol/L Anion Gap 6.0 mmol/L Blood Urea Nitrogen 25 mg/dl Creatinine 1.00 mg/dl Est Creatinine Clear Calc Drug Dose 46.0 ml/min Estimated GFR () 64.3 Estimated GFR (Non- 55.5 BUN/Creatinine Ratio 24.8 Random Glucose 93 mg/dl Calcium Level 8.9 mg/dl Magnesium Level 2.2 mg/dl Total Bilirubin 0.3 mg/dl Direct Bilirubin < 0.1 mg/dl Aspartate Amino Transf (AST/SGOT) 20 U/L Alanine Aminotransferase (ALT/SGPT) 18 U/L Alkaline Phosphatase 86 U/L Total Protein 7.3 gm/dl Albumin 3.7 gm/dl Lipase 152 U/L Thyroid Stimulating Hormone (TSH) 7.920 uIu/ml Free Thyroxine 1.18 ng/dl Total Triiodothyronine 0.89 ng/ml Urine Color YELLOW Urine Appearance CLEAR Urine pH 7.5 Urine Specific [place] 1.014 Urine Protein NEG Urine Glucose (UA) NEG Urine Ketones NEG Urine Occult Blood NEG Urine Nitrite NEG Urine Bilirubin NEG Urine Urobilinogen NEG Urine Leukocyte Esterase MODERATE Urine WBC (Auto) 5-10 /hpf Urine RBC (Auto) 0-4 /hpf Urine Hyaline Casts (Auto) 0 /lpf Urine Epithelial Cells (Auto) >30 /lpf Urine Bacteria (Auto) NEG Assessment and Plan 72 y/o F Hx HTN, fall with LOC 05/29 leading to a subdural hematoma. Patient was admitted on 06/18/2017 which is last night because of another episodes loss of consciousness/Fell Per report, was outdoors when she may have become lightheaded and collapsed on the ground. suffered head trauma and brief LOC although it is unclear if syncope preceded LOC or if she fell and lost consciousness due to head trauma. She presented with identical complaints 05/29. When EMS arrived at the seen, it is reported that she was exhibiting an irregular, tachycardic rhythm - suspected AF. Initial labs reveal a slightly elevated TSH. Syncope with head trauma and LOC/concussion this is the second such episode in 1 month and there was some concern for tachyarrhythmia by EMS on initial evaluation. cont monitored on telemetry, obtain an echo. cardio consult an elevated BP with hx of HTN has coincided with both hospitalizations LVH on her EKG which may indicate that this is chronic and poorly controlled will provide PRN Hydralazine and continue her HS Propranolol which is primarily prescribed for migraines. Elevated TSH, however T3-T4 is normal patient does report some dry skin and insomnia but not constipation. We'll follow-up Full code - SCDs only due to head trauma/hematoma Increase activity, PT OT, follow-up cardiology input, possible discharge soon Continued [facility] stay due to: multiple IV medications needed Discharge planning: home
[2017-06-19 20:07] VITALS: BP 137/84; PULSE 50; TEMP 36.3; O2SAT 96
[2017-06-19] MEDS: PROPRANOLOL HCL 60 MG LA CAP PO SCH (20:50)
[2017-06-19] MEDS: CHOLECALCIFEROL 1000 INTER.UNIT TAB PO SCH (20:51)
[2017-06-19] MEDS: ACETAMINOPHEN 325 MG TAB PO PRN (20:54)
[2017-06-19 23:20] VITALS: BP 147/84; PULSE 53; TEMP 36.9; O2SAT 95
[2017-06-20 05:04] VITALS: BP 145/73; PULSE 49; TEMP 36.4; O2SAT 97
[2017-06-20 07:26] VITALS: BP 154/82; PULSE 50; TEMP 36.5; O2SAT 97
[2017-06-20] MEDS: LORATADINE 10 MG TAB PO SCH (07:47)
[2017-06-20] MEDS: CALCIUM CARBONATE 500 MG CHEWABLE PO SCH ×2 (07:47→20:31)
[2017-06-20] MEDS: PANTOprazole SOD 40 MG TAB PO SCH (07:47)
--- NOTE | 2017-06-20 08:55 | Cardiology Follow-Up ---
Subjective Date of Service: Jun 20, 2017. Pt evaluation today including: conversation w/ patient, physical exam, lab review, review of studies, review of inpatient medication list History of Present Illness This is a 72-year-old woman who presented with an episode of loss of consciousness. She also has a history of reported loss of consciousness in May 2016 resulting in a fall and a subdural hematoma, at that time was felt that she had a mechanical fall followed by head trauma and there is a possibility she had atrial fibrillation at that time although it sounds as though was not documented. She now presents with another episode of falling, she was walking across the street when she became lightheaded and collapsed hitting her head and having brief loss of consciousness, although that particular sequence may not be correct as she only recalls walking down the street and then being picked up by rescue. There is mention in the chart that EMS found her in atrial fibrillation, as on the prior episode, however an EMS report is not available as yet in the chart. In the emergency room she was in sinus rhythm. She reports having episodes of syncope in the past, she believe she had perhaps 3 episodes over 2 or 3 years, never having them when she was younger. She may have intermittent lightheadedness although it is not clear, she does not have palpitations either during these episodes or at other times. She does not have exertional chest discomfort. She does not have shortness of breath or difficulty with exertion. She does take propranolol for migraine headaches. Since admission she has felt well, she has had no presyncope or syncope and no symptomatic arrhythmia on telemetry. She does report that when she bends over she feels funny, she describes it as "unwell", but I'm not sure that this would have anything to do with her presentation. Social History Smoking Status: Never Smoker History of Alcohol Use: Yes (rarely, socially) Review of Systems Respiratory: No cough, No sputum, No wheezing, No shortness of breath, No dyspnea on exertion, No dyspnea at rest, No hemoptysis Cardiac: No chest pain, No orthopnea, No PND, No edema, No claudication, No palpitations Medications Cardiovascular: Item Value Date Time Propranolol HCl 60 mg 06/18/172099 (Inderal La Cap) HS/PO 06/19/172049 Objective Vital Signs Past 12 Hours Date Time Temp Pulse Resp B/P (MAP) Pulse Ox O2 Delivery O2 Flow Rate FiO2 06/20/17 07:26 36.5 50 17 154/82 (106) 97 06/20/17 05:04 36.4 49 20 145/73 (97) 97 Room Air 06/20/17 04:00 Room Air 06/20/17 00:00 Room Air 06/19/17 23:20 36.9 53 16 147/84 (105) 95 Room Air Last Recorded Weight-Kilograms: 68.300 Physical Exam Constitutional: General Apperance: heathly-appearing Level of Distress: NAD Lungs: Respiratory effort: no dyspnea, good air movement Auscultation: breath sounds normal, no wheezing Cardiovascular: Heart Auscultation: RRR, no murmurs, no rubs, no gallops Peripheral Pulses: Bruits: none appreciated Extremities: no edema Data Telemetry reviewed: Sinus rhythm and sinus bradycardia, no significant arrhythmia in the past 24 hours Assessment and Plan #1. Falling: It sounds as though at least some of her episodes of falling are due to loss of consciousness, most notably this recent episode. It is conceivable that she lost consciousness after falling due to hitting her head, but think that is less likely. #2. Loss of consciousness: The cause is not clear, there is a report that she had atrial fibrillation both on this event and the one in May 2016, the prior event she feels was due to being knocked over, this clearly was not. I have not seen those rhythm strips. She does however have periods of PAT on telemetry and she has a somewhat slow heart rate at night. She is on propranolol however which may explain the slow heart rate and is not slow enough to cause problems, in the low 40s, but could be lower at times potentially. This could therefore be sick sinus syndrome or could be some type of SVT or atrial fibrillation causing hypotension and loss of consciousness. We do need to monitor her for an arrhythmia, I would keep her on telemetry here, if she goes home I will arrange an outpatient event monitor for a month and consideration for a loop recorder if that is negative. I will arrange follow-up after her event recorder. I would be reluctant to treat the tachycardia since she is bradycardic on propranolol and I don't know whether her event was due to tachycardia or bradycardia. Thank you for allowing me to participate in her care.
--- NOTE | 2017-06-20 09:00 | ECHOCARDIOGRAM REPORT ---
*NOTICE TO RECEIVING [employer] This information is strictly Confidential and protected under [place] law. [place] law prohibits you from making any further disclosure of this information unless further disclosure is expressly permitted by the written consent of the person to whom it pertains or is authorized by law. A general authorization for the release of medical or other information is not sufficient for this purpose. Hospital accepts no responsibility if the information is made available to any other person, INCLUDING THE PATIENT. Interpretation Summary * Name: MOIRA IRENE Study Date: 06/19/2017 06:45 AM BP: 106/64 mmHg * Patient Location: [facility]\S\N284\S\1 HR: 46 * : 1945 (M/d/yyyy) Gender: Female Height: 62 in * Age: 72 yrs Ethnicity: [place] Weight: 159 lb * Ordering Physician: Sonny Manzano * Referring Physician: Self, Referred * Performed By: Jayna Burton RCS * * Reason For Study: Syncope * BSA: 1.7 m2 * -- Conclusions -- * Left ventricular systolic function is normal. * No regional wall motion abnormalities noted. * Ejection Fraction = 65-70%. * There is borderline concentric left ventricular hypertrophy. * Diastolic dysfunction, Grade II (pseudonormalization pattern). * There is mild mitral regurgitation. * There is mild tricuspid regurgitation. Procedure Details * Left Ventricle The left ventricle is normal in size. There is borderline concentric left ventricular hypertrophy. Ejection Fraction = 65-70%. Left ventricular systolic function is normal. No regional wall motion abnormalities noted. * Right Ventricle The right ventricle is normal size. The right ventricular systolic function is normal as assessed by tricuspid annular plane systolic excursion (TAPSE) (normal >1.5 cm). * Atria The left atrium is moderately dilated. The right atrium is mildly dilated. There is no evidence of atrial septal defect, but resolution does not allow assessment for a patent foramen ovale. * Mitral Valve The mitral valve anatomy is normal. There is no mitral valve stenosis. There is mild mitral regurgitation. * Tricuspid Valve The tricuspid valve anatomy is normal. There is mild tricuspid regurgitation. * Aortic Valve The aortic valve is not well visualized. The aortic valve opens well. Aortic valve sclerosis mild, without significant aortic valvular stenosis. * Pulmonic Valve The pulmonary valve is not well seen, but the Doppler examination is normal without significant regurgitation or stenosis. * Great Vessels The aortic root is normal size. The pulmonary is not well visualized. * Pericardium/Pleural There is no pericardial effusion. * Great Vessels Normal inferior vena cava size and collapsability with sniff indicates a normal right atrial pressure of 3 mmHg * Left Ventricular Diastolic Function Diastolic dysfunction, Grade II (pseudonormalization pattern). * * MMode 2D Measurements and Calculations * IVSd 0.94 cm * * LVIDd 4.3 cm * LVIDs 2.7 cm * LVPWd 0.91 cm * * IVS/LVPW 1.0 * FS 37.7 % * EDV(Teich) 81.8 ml * ESV(Teich) 26.1 ml * EF(Teich) 68.1 % * * EDV(cubed) 77.9 ml * ESV(cubed) 18.9 ml * EF(cubed) 75.8 % * * LV mass(C)d 126.6 grams * LV mass(C)dI 73.0 grams/m\S\2 * * SV(Teich) 55.7 ml * SI(Teich) 32.1 ml/m\S\2 * SV(cubed) 59.0 ml * SI(cubed) 34.1 ml/m\S\2 * * Ao root diam 2.7 cm * Ao root area 5.9 cm\S\2 * * LVOT diam 2.2 cm * LVOT area 3.8 cm\S\2 * * EDV(MOD-sp4) 80.2 ml * ESV(MOD-sp4) 20.2 ml * EF(MOD-sp4) 74.9 % * * EDV(MOD-sp2) 87.9 ml * ESV(MOD-sp2) 23.4 ml * EF(MOD-sp2) 73.4 % * * SV(MOD-sp4) 60.0 ml * SI(MOD-sp4) 34.6 ml/m\S\2 * * SV(MOD-sp2) 64.5 ml * SI(MOD-sp2) 37.2 ml/m\S\2 * * * Doppler Measurements and Calculations * MV E max bety 115.6 cm/sec * MV A max bety 104.4 cm/sec * * MV E/A 1.1 * * MV dec slope 420.6 cm/sec\S\2 * MV dec time 0.27 sec * * Ao V2 max 151.3 cm/sec * Ao max PG 9.2 mmHg * Ao max PG (full) 4.2 mmHg * JOSH(V,A) 2.8 cm\S\2 * JOSH(V,D) 2.8 cm\S\2 * * LV V1 max PG 5.0 mmHg * * LV V1 max 111.7 cm/sec * * TR max bety 279.9 cm/sec * * *
[2017-06-20 11:19] VITALS: BP 129/81; PULSE 48; TEMP 36.8; O2SAT 97
[2017-06-20 15:59] VITALS: BP 128/81; PULSE 50; TEMP 36.6; O2SAT 97
--- NOTE | 2017-06-20 17:23 | Progress Note ---
Subjective Date of Service: Jun 20, 2017. Subjective Pt evaluation today including: conversation w/ patient, physical exam, chart review, lab review, review of studies, review of inpatient medication list Reports no sx at this time Resting comfortably in bed Noted bradycardia this AM Problem List Medical Problems: (1) Closed head injury Status: Acute (2) Contusion of multiple sites Status: Acute (3) Fall Status: Acute (4) Fracture of right clavicle Status: Acute Review of Systems Constitutional: No fever, No chills, No sweats, No weight loss, No weakness ENT: No hearing loss, No unusual epistaxis, No nasal symptoms, No sore throat Respiratory: No cough, No sputum, No wheezing, No shortness of breath, No dyspnea on exertion Cardiac: No chest pain, No orthopnea, No PND, No edema Abdomen: No pain, No nausea, No vomiting, No diarrhea Musculoskeletal: No joint pain, No muscle pain, No swelling, No calf pain Female : No dysuria, No urinary frequency, No hematuria, No incontinence Neurologic: No memory loss, No paralysis, No weakness, No numbness/tingling Psychiatric: No depression symptoms, No anhedonism, No anxiety, No insomnia Endo: No fatigue, No excessive thirst Skin: No rash, No itch Objective Vital Signs Date Time Temp Pulse Resp B/P (MAP) Pulse Ox O2 Delivery O2 Flow Rate FiO2 06/20/17 16:00 Room Air 06/20/17 15:59 36.6 50 16 128/81 (97) 97 06/20/17 12:00 Room Air 06/20/17 11:19 36.8 48 16 129/81 (97) 97 06/20/17 08:00 Room Air 06/20/17 07:26 36.5 50 17 154/82 (106) 97 06/20/17 05:04 36.4 49 20 145/73 (97) 97 Room Air 06/20/17 04:00 Room Air 06/20/17 00:00 Room Air 06/19/17 23:20 36.9 53 16 147/84 (105) 95 Room Air 06/19/17 20:07 36.3 50 20 137/84 (101) 96 Room Air 06/19/17 20:00 Room Air Physical Exam General Appearance: WD/WN, no apparent distress Neck: supple, no adenopathy Respiratory/Chest: chest non-tender, lungs clear, normal breath sounds, no respiratory distress Cardiovascular: no edema, no gallop, + bradycardia Abdomen: normal bowel sounds, non tender, soft Extremities: non-tender, normal inspection, no pedal edema Neurologic/Psychiatric: no motor/sensory deficits, alert, normal mood/affect, oriented x 3 Assessment and Plan 72 y/o F Hx HTN, fall with LOC 05/29 leading to a subdural hematoma. Patient was admitted on 06/18/2017because of another episodes loss of consciousness/Fell Per report, was outdoors when she may have become lightheaded and collapsed on the ground. suffered head trauma and brief LOC although it is unclear if syncope preceded LOC or if she fell and lost consciousness due to head trauma. She presented with identical complaints 05/29. When EMS arrived at the seen, it is reported that she was exhibiting an irregular, tachycardic rhythm - suspected AF. Initial labs reveal a slightly elevated TSH. Syncope with head trauma and LOC/concussion this is the second such episode in 1 month and there was some concern for tachyarrhythmia by EMS on initial evaluation. cardio consult ECHO ef 65-70%, diastolic dysfunction cont propanolol at this time due to concern for tachy will need loop recorder on discharge an elevated BP with hx of HTN has coincided with both hospitalizations LVH on her EKG which may indicate that this is chronic and poorly controlled will provide PRN Hydralazine and continue her HS Propranolol which is primarily prescribed for migraines. Elevated TSH, however T3-T4 is normal patient does report some dry skin and insomnia but not constipation. We'll follow-up Full code - SCDs only due to head trauma/hematoma Continued [facility] stay due to: multiple IV medications needed Discharge planning: home
[2017-06-20 20:02] VITALS: BP 150/76; PULSE 55; TEMP 36.8; O2SAT 95
[2017-06-20] MEDS: ACETAMINOPHEN 325 MG TAB PO PRN (20:31)
[2017-06-20] MEDS: CHOLECALCIFEROL 1000 INTER.UNIT TAB PO SCH (20:31)
[2017-06-20] MEDS: PROPRANOLOL HCL 60 MG LA CAP PO SCH (20:32)
[2017-06-21 00:52] VITALS: BP 125/79; PULSE 50; TEMP 36.8; O2SAT 96
[2017-06-21 04:21] VITALS: BP 168/79; PULSE 51; TEMP 36.8; O2SAT 95
[2017-06-21 07:42] VITALS: BP 147/71; PULSE 50; TEMP 36.9; O2SAT 96
[2017-06-21 08:00] VITALS: O2SAT 96
[2017-06-21] MEDS: LORATADINE 10 MG TAB PO SCH (08:13)
[2017-06-21] MEDS: CALCIUM CARBONATE 500 MG CHEWABLE PO SCH (08:13)
[2017-06-21] MEDS: PANTOprazole SOD 40 MG TAB PO SCH (08:13)
[2017-06-21 10:38] VITALS: BP 147/71; PULSE 50; TEMP 36.9; O2SAT 96
[2017-06-21 11:40] VITALS: O2SAT 96
--- NOTE | 2017-06-21 12:28 | Discharge Instructions ---
Discharge Instructions Date of Service Jun 21, 2017. Admission Reason for Admission: Head Trauma, Syncope Discharge Discharge Diagnosis / Problem: Recurrent falls, syncope Discharge Goals Goal(s): Decrease discomfort, Improve function, Increase independence, Improve disease control, Learn about illness, Diagnostic testing, Therapeutic intervention, Prevent Disease Progression Activity Recommendations Activity Limitations: resume your previous activity Exercise/Sports Limitations: none . Instructions / Follow-Up Instructions / Follow-Up Patient to be discharged home Further workup to be completed as an outpatient Will need to follow up with Dr Alonso in 1 week for implementation of loop recorder No changes in medications If worsening chest pain, palpitations, shortness of breath please report to ER Follow up with Dr Tiago Martinez in 1 week Current Hospital Diet Patient's current hospital diet: AHA Diet (Heart Healthy) Discharge Diet Recommended Diet: AHA Diet (Heart Healthy) Pending Studies Studies pending at discharge: no Medical Emergencies . Who to Call and When: Medical Emergencies: If at any time you feel your situation is an emergency, please call 911 immediately. . Non-Emergent Contact Non-Emergency issues call your: Primary Care Provider Call Non-Emergent contact if: your pain is worsening . . "Provider Documentation" section prepared by Best Najera. . VTE Core Measure Inpt VTE Proph given/why not?: SCD's
--- NOTE | 2017-06-21 18:01 | Discharge Summary ---
Discharge Summary Date of Service Jun 21, 2017. Discharge Summary Admission Date: Jun 20, 2017 at 12:35 Discharge Date: Jun 21, 2017 Discharge Disposition: Home Principal Diagnosis: Recurrent falls/syncope Consultations: Cardiology Medication Reconciliation Continued Medications: Calcium Carbonate (Tums) 500 Mg Chew 1 TAB PO BID Cholecalciferol (Vitamin D3) 1,000 Unit Tab 1 TAB PO HS Diclofenac Sodium (Topical) (Diclofenac Sodium) 1 % Gel 1 APPLN TOP HS Diphenhydramine Hcl (Benadryl Allergy) 25 Mg Tab 25 MG PO UD PRN for ALLERGIC REACTION Loratadine (Claritin) 10 Mg Tab 10 MG PO DAILY, TAB Pantoprazole Sodium (Protonix) 20 Mg Tab 20 MG PO DAILY Propranolol Hcl (Propranolol ER) 60 Mg Capcr 60 MG PO HS Rizatriptan Benzoate (Maxalt) 10 Mg Tab 10 MG PO PRN for Pain, TAB Discharge Exam Review of Systems: Constitutional: No fever, No chills, No sweats, No weakness ENT: No hearing loss, No nasal symptoms, No sore throat, No tinnitus Respiratory: No cough, No sputum, No wheezing, No shortness of breath, No dyspnea on exertion Cardiovascular: No chest pain, No orthopnea, No PND, No edema, No claudication Abdomen: No pain, No nausea, No vomiting, No diarrhea, No constipation Musculoskeletal: No joint pain, No muscle pain, No swelling, No calf pain Genitourinary - Male: No hematuria, No dysuria, No urinary frequency, No urinary urgency Neurologic: No memory loss, No paralysis, No weakness, No numbness/tingling , No vertigo Psychiatric: No depression symptoms, No anhedonism, No anxiety, No insomnia Physical Exam: General Appearance: WD/WN, no apparent distress Eyes: normal inspection, PERRL, EOMI, sclerae normal Neck: supple, no adenopathy, thyroid normal, no JVD Respiratory/Chest: chest non-tender, lungs clear, normal breath sounds, no respiratory distress Cardiovascular: regular rate, rhythm, no gallop, no JVD, no murmur Abdomen / GI: normal bowel sounds, non tender, soft, no organomegaly Neurologic/Psychiatric: no motor/sensory deficits, alert, normal mood/affect , oriented x 3 Hospital Course 72 y/o F Hx HTN, fall with LOC 05/29 leading to a subdural hematoma. Patient was admitted on 06/18/2017because of another episodes loss of consciousness/Fell Per report, was outdoors when she may have become lightheaded and collapsed on the ground. suffered head trauma and brief LOC although it is unclear if syncope preceded LOC or if she fell and lost consciousness due to head trauma. She presented with identical complaints 05/29. When EMS arrived at the seen, it is reported that she was exhibiting an irregular, tachycardic rhythm - suspected AF. Initial labs reveal a slightly elevated TSH. Syncope with head trauma and LOC/concussion this is the second such episode in 1 month and there was some concern for tachyarrhythmia by EMS on initial evaluation. cardio consult ECHO ef 65-70%, diastolic dysfunction cont propanolol at this time due to concern for tachy will need loop recorder on discharge an elevated BP with hx of HTN has coincided with both hospitalizations LVH on her EKG which may indicate that this is chronic and poorly controlled will provide PRN Hydralazine and continue her HS Propranolol which is primarily prescribed for migraines. Elevated TSH, however T3-T4 is normal patient does report some dry skin and insomnia but not constipation. We'll follow-up Full code - SCDs only due to head trauma/hematoma Total Time Spent: Greater than 30 minutes This includes examination of the patient, discharge planning, medication reconciliation, and communication with other providers. Discharge Instructions Please refer to the electronic Patient Visit Report (Discharge Instructions) for additional information. Additional Copies To Tiago Martinez M.D.
== END 2017-06-21 13:20 | disposition home or self-care (01) | DRG 309 ==
LOC: EDBD 18:04 → C.EDC 18:05 → C.MED 20:33 → ENRESERV 20:58 → OBSVTOIN 06-20 12:35
PROVIDERS: ADMIT Internal Medicine; ATTEND Hospitalist
DX: I49.9 Cardiac arrhythmia, unspecified (principal); S06.0X9A Concussion with loss of consciousness of unspecified duration, initial encounter; I10 Essential (primary) hypertension; S42.001A Fracture of unspecified part of right clavicle, initial encounter for closed fracture; M81.0 Age-related osteoporosis without current pathological fracture; Z88.0 Allergy status to penicillin; R29.6 Repeated falls; Z88.2 Allergy status to sulfonamides; W18.39XA Other fall on same level, initial encounter; Y93.01 Activity, walking, marching and hiking; Y92.410 Unspecified street and highway as the place of occurrence of the external cause

== ENCOUNTER → 2017-08-19 | Day surgery (SDC) | payer OTHER ==
[~2017-08-19] VITALS: Ht 157.5 cm; Wt 68.1 kg
[~2017-08-19] MED LIST changes: +ACETAMINOPHEN 325 MG TAB PO PRN; +BACITRACIN OINT 0.9 GM PKT ONE; +CALC500C3 PO; +CHOL1000 PO; +CLINDAMYCIN 600 MG/54 ML D5W IV SCH; +DICL1GEL34 TOP; +INDSR/60 PO; +ISOPROTERENOL 200 MCG / 50ML D5W IV ONE; +KETOROLAC TROMETHAMINE 10 MG TAB PO PRN; +LACTATED RINGER'S 1000ML 1,000 ML IV SCH; +LIDOCAINE HCL 1% 20 ML VIAL ONE
[2017-08-19 07:08] VITALS: BP 149/65; PULSE 63; TEMP 37.3; O2SAT 97; Ht 157.5 cm; Wt 68.1 kg
--- NOTE | 2017-08-19 08:49 | History & Physical Bridge Note ---
H&P Re-Evaluation Bridge Note: I have examined the patient, reviewed the History & Physical and in the interval since the performance of the History & Physical I have noted the following changes of clinical significance: No changes noted
[2017-08-19 09:20] VITALS: PULSE 69; TEMP 36.8; O2SAT 99
--- NOTE | 2017-08-19 09:22 | Cardiology Procedure Brief Nt ---
Preliminary Cardiology Note Procedure Date Aug 19, 2017. Pre-Procedure Diagnosis Syncope Post-Procedure Diagnosis Same Procedure(s) Performed Loop implant [employer] Director Celeste Roving Technician(s) None Estimated Blood Loss 3 cc Preliminary Findings Good placement Recommendations To [facility] then discharge Specimens None Anesthesia Local only Complication(s) None Disposition MTU
--- NOTE | 2017-08-19 09:27 | Discharge Instructions ---
Discharge Instructions Date of Service Aug 19, 2017. Admission Reason for Admission: Syncope Discharge Discharge Diagnosis / Problem: Loop recorder implant Discharge Goals Goal(s): Diagnostic testing Activity Recommendations Activity Limitations: resume your previous activity . Instructions / Follow-Up Instructions / Follow-Up ACTIVITY RECOMMENDATIONS: * Do not raise affected arm over head for 2 weeks. SPECIAL CARE INSTRUCTIONS: * If bleeding occurs, apply direct pressure to area for 5 minutes. * Call your doctor if you have severe pain, fever, drainage or bleeding at site. * Keep dressing on and dry for 48 hours then remove. * Keep any scheduled doctor's appointment. * Implant Card - hand held device with website information given. SKIN IRRITATION: * You may experience some redness and/or swelling in the area where radiation was administered. If any skin irritation occurs, please contact your family physician. FOLLOW UP VISIT: Keep any scheduled doctor appointments. Current Hospital Diet Patient's current hospital diet: AHA Diet (Heart Healthy) Discharge Diet Recommended Diet: AHA Diet (Heart Healthy) Procedures Procedures Performed: Loop recorder implant Pending Studies Studies pending at discharge: no Medical Emergencies . Who to Call and When: Medical Emergencies: If at any time you feel your situation is an emergency, please call 911 immediately. . Non-Emergent Contact Non-Emergency issues call your: Primary Care Provider . . "Provider Documentation" section prepared by Ganesh Alonso. . VTE Core Measure Inpt VTE Proph given/why not?: Treatment not indicated
[2017-08-19 10:00] VITALS: BP 155/67; PULSE 61; TEMP 37.3; O2SAT 97
--- NOTE | 2017-08-19 10:16 | [facility] Operative Report ---
Operative Report Operative Date Aug 19, 2017. Pre-Operative Diagnosis Recurrent Syncope Post-Operative Diagnosis Same Procedure(s) Performed Loop recorder implant Surgeon Dr Alonso Metal Coater Surgeon(s) none Estimated Blood Loss 3 cc Findings Good position, good measurements Specimens None Anesthesia local without sedation Complication(s) None Disposition same day surgery Description of Procedure After obtaining informed consent for the procedure, the patient was brought to the laboratory having had nothing by mouth after midnight. The patient was prepped and draped in the standard sterile manner for a loop recorder implantation. The prepectoral region was viewed under fluoroscopy as the patient had a clip that she was worried might be in the field, I saw no evidence of a clip in that region. An area at the fourth left intercostal space and 1 cm left of the left sternal border was infiltrated with 1% lidocaine local anesthetic and a 0.5 cm incision was made through the skin. Using the loop recorder insertion tool the loop recorder was inserted through the incision at a 45 downward and leftward angle. The incision was closed with a subcutaneous continuous closure of 4-0 Vicryl followed by a running subcuticular skin closure of 4-0 Vicryl. Steri- Strips were applied and bacitracin ointment was placed on the incision. A dressing was applied. I attest to the content of the Intraoperative Record and any orders documented therein. Any exceptions are noted below.
== END | disposition home or self-care (01) ==
LOC: C.ACU 06:48
PROVIDERS: ATTEND Internal Medicine Cardiovascular Disease
DX: I47.1 Supraventricular tachycardia (principal); R55 Syncope and collapse; R03.0 Elevated blood-pressure reading, without diagnosis of hypertension; K21.9 Gastro-esophageal reflux disease without esophagitis; E78.5 Hyperlipidemia, unspecified; M81.0 Age-related osteoporosis without current pathological fracture; Z82.49 Family history of ischemic heart disease and other diseases of the circulatory system; Z82.3 Family history of stroke

== ENCOUNTER → 2017-11-18 | Outpatient (CLI) | payer OTHER ==
[~2017-11-18] MED LIST changes: -ACETAMINOPHEN 325 MG TAB PO PRN; -BACITRACIN OINT 0.9 GM PKT ONE; +CALC500C70 PO; -CLINDAMYCIN 600 MG/54 ML D5W IV SCH; -DIPH1TAB PO; +DIPH1TAB87 PO; -ISOPROTERENOL 200 MCG / 50ML D5W IV ONE; -KETOROLAC TROMETHAMINE 10 MG TAB PO PRN; -LACTATED RINGER'S 1000ML 1,000 ML IV SCH; -LIDOCAINE HCL 1% 20 ML VIAL ONE; -LORA10TA5 PO; +LORA10TA6 PO; +MULT-506 PO; -PANT20TA PO; +PANT20TA2 PO; +VALSARTAN-HCTZ; +[UNRECOGNIZED DRUG - CODE]
[2017-11-18 11:14] LABS: BASO % 0.4 %; BASO ABS # 0.02 K/uL (0-0.2); EOS % 1.1 %; EOS ABS # 0.05 K/uL (0-0.5); HEMATOCRIT 41.1 % (37-47); HEMOGLOBIN 13.6 g/dL (12.0-16.0); IG# 0.01 K/uL (0.00-0.02); LYMPH % 27.8 %; LYMPH ABS # 1.28 K/uL (1.2-3.4); MEAN CELL VOLUME 90.9 fL (80-100); MEAN CORPUSCULAR HEMOGLOBIN 30.1 pg (25-34); MEAN CORPUSCULAR HGB CONC 33.1 g/dl (32-36); MEAN PLATELET VOLUME 9.6 fL (7.4-10.4); MONO % 11.1 %; MONO ABS # 0.51 K/uL (0.11-0.59); NEUT % 59.4 %; NEUT ABS # 2.73 K/uL (1.4-6.5); PLATELET COUNT 262 K/uL (130-400); RED CELL DISTRIBUTION WIDTH CV 13.1 % (11.5-14.5); RED CELL DISTRIBUTION WIDTH SD 43.1 fL (36.4-46.3)
[2017-11-18 11:34] LABS: ALBUMIN 4.3 gm/dl (3.4-5.0); ALT/SGPT 20 U/L (12-78); AST/SGOT 27 U/L (15-37); BLOOD UREA NITROGEN 13 mg/dl (7-18); CALCIUM 9.2 mg/dl (8.5-10.1); CARBON DIOXIDE 27 mmol/L (21-32); CREATININE 0.85 mg/dl (0.60-1.20); GLUCOSE 87 mg/dl (70-99); POTASSIUM 3.4 mmol/L (3.5-5.1); SODIUM 133 mmol/L (136-145)
[2017-11-18 11:45] LABS: ALKALINE PHOSPHATASE 63 U/L (45-117); CHOLESTEROL 228 mg/dl (0-200); LDL CHOLESTEROL CALCULATED 135 mg/dl; TOTAL PROTEIN 8.1 gm/dl (6.4-8.2)
--- NOTE | 2017-11-23 14:13 | CODING QUERY MEDICAL NECESSITY ---
CQSUPPORTING DIAGNOSIS NEEDED A supporting diagnosis is required for the test/procedure performed on this patient in order for us to be reimbursed by the patient's insurance. Please provide a supporting diagnosis for the following test/procedure listed below next to the test name along with your signature. *If there is no additional diagnosis for this patient that would support the following test/procedure please document that below next to the test/procedure. Test(s)/Procedure(s) that require a supporting diagnosis: DOS 11/18/17 BLOOD COUNT TESTING THYROID TEST LIPID TEST Provider Signature: Date: Thank you Doris Tinoco Health Information Management Once completed, please kindly fax back to [phone] For questions please call [phone]
== END | disposition home or self-care (01) ==
LOC: C.LABBC 09:01
PROVIDERS: ATTEND Internal Medicine
DX: M81.0 Age-related osteoporosis without current pathological fracture (principal); R55 Syncope and collapse; E78.5 Hyperlipidemia, unspecified

== ENCOUNTER → 2017-11-24 | Day surgery (SDC) | payer OTHER ==
[~2017-11-24] VITALS: Ht 157.5 cm; Wt 64.0 kg
[~2017-11-24] MED LIST changes: +ACETAMINOPHEN 500 MG TAB PO ONE; +ACETAMINOPHEN 500 MG TAB PO SCH; +ZOLEDRONIC ACID INJ 5 MG in EMPTY BAG 0 ML IV SCH
[2017-11-24 14:22] VITALS: BP 99/53; PULSE 53; TEMP 36.4; O2SAT 97; Ht 157.5 cm; Wt 64.0 kg
== END | disposition home or self-care (01) ==
LOC: C.MTU 09:29
PROVIDERS: ATTEND Internal Medicine
DX: M81.0 Age-related osteoporosis without current pathological fracture (principal)

== ENCOUNTER → 2017-11-28 | Outpatient (CLI) | payer OTHER ==
[~2017-11-28] MED LIST changes: -ACETAMINOPHEN 500 MG TAB PO ONE; -ACETAMINOPHEN 500 MG TAB PO SCH; -CALC500C3 PO; -ZOLEDRONIC ACID INJ 5 MG in EMPTY BAG 0 ML IV SCH
[2017-11-28 12:05] LABS: BLOOD UREA NITROGEN 14 mg/dl (7-18); CALCIUM 9.4 mg/dl (8.5-10.1); CARBON DIOXIDE 28 mmol/L (21-32); CREATININE 0.72 mg/dl (0.60-1.20); GLUCOSE 97 mg/dl (70-99); POTASSIUM 3.3 mmol/L (3.5-5.1); SODIUM 133 mmol/L (136-145)
== END | disposition home or self-care (01) ==
LOC: C.LABBC 08:14
PROVIDERS: ATTEND Internal Medicine
DX: R03.0 Elevated blood-pressure reading, without diagnosis of hypertension (principal)

== ENCOUNTER → 2018-03-03 | Outpatient (CLI) | payer OTHER ==
--- NOTE | 2018-03-06 08:08 | MAMMOGRAPHY REPORT ---
BILATERAL DIGITAL SCREENING MAMMOGRAM TOMOSYNTHESIS WITH CAD: 03/03/2018 CLINICAL HISTORY: Routine screening. Patient has no complaints. TECHNIQUE: Breast tomosynthesis in addition to standard 2D mammography was performed. Current study was also evaluated with a Computer Aided Detection (CAD) system. COMPARISON: Comparison is made to exams dated: 02/18/2017 mammogram, 02/13/2016 mammogram, 03/26/2013 [facility] mogram, 03/20/2012 mammogram, and 01/07/2014 mammogram - [facility]. BREAST COMPOSITION: There are scattered areas of fibroglandular density in both breasts. FINDINGS: No suspicious masses, calcifications, or areas of architectural distortion are noted in ei ther breast. There has been no significant interval change compared to prior exams. Scattered bilate ral benign-appearing calcifications are not significantly changed. A biopsy marker clip is again not ed in the left upper outer quadrant. A cardiac loop recorder overlies the left lower inner quadrant. IMPRESSION: ACR BI-RADS CATEGORY 2: BENIGN There is no mammographic evidence of malignancy. A 1 year screening mammogram is recommended. The pa tient will receive written notification of the results. Approximately 10% of breast cancers are not detected with mammography. A negative mammographic report should not delay biopsy if a clinically suggestive mass is present. Ramya Pérez M.D. /:03/03/2018 08:46:12 Pressure Dispatcher: Keena WATERS(R)(M), [facility] letter sent: Normal 1/2 BI-RADS Code: ACR BI-RADS Category 2: Benign
== END ==
LOC: C.MAMM 07:12
PROVIDERS: ATTEND Internal Medicine
DX: Z12.31 Encounter for screening mammogram for malignant neoplasm of breast (principal)

== ENCOUNTER → 2018-06-29 | Outpatient (CLI) | payer OTHER ==
[2018-06-29 13:38] LABS: BLOOD UREA NITROGEN 18 mg/dl (7-18); CALCIUM 8.9 mg/dl (8.5-10.1); CARBON DIOXIDE 27 mmol/L (21-32); CREATININE 0.85 mg/dl (0.60-1.20); GLUCOSE 82 mg/dl (70-99); POTASSIUM 3.7 mmol/L (3.5-5.1); SODIUM 134 mmol/L (136-145)
== END | disposition home or self-care (01) ==
LOC: C.LABBC 10:19
PROVIDERS: ATTEND Internal Medicine
DX: R03.0 Elevated blood-pressure reading, without diagnosis of hypertension (principal)

== ENCOUNTER 2023-06-09 09:57 | Inpatient (IN) ==
--- NOTE | 2023-06-09 10:27 | Emergency Department Note ---
History of Present Illness General Chief complaint: Confusion Stated complaint: CONFUSION Time Seen by Provider: 06/09/23 10:05 History of Present Illness 78-year-old female presents emergency department reportedly was found by neighbor wandering in the hallway of her apartment. Patient was confused did not know the year did not know when she was born. There is no history from the patient as she is a very poor historian. There is no reported trauma per EMS. Patient has no complaints such as headache chest pain shortness of breath abdominal pain nausea vomiting. Home Medications Medication Instructions Recorded Confirmed Type calcium carbonate 600 mg-vitamin 1 cap PO QAM 06/05/19 12/02/21 History D3 5 mcg (200 unit) capsule cholecalciferol (vitamin D3) 25 1,000 units PO QAM 06/05/19 12/02/21 History mcg (1,000 unit) capsule (Vitamin D3) multivitamin 1 tab PO QAM 06/05/19 12/02/21 History loratadine 10 mg capsule 10 mg PO DAILY PRN allergy symptoms 08/04/20 12/02/21 History Saccharomyces boulardii 250 mg 250 mg PO BID #20 caps 10/23/20 12/02/21 Rx capsule (Florastor) famotidine 20 mg tablet 20 mg PO BID #20 tabs 10/23/20 12/02/21 Rx hydrochlorothiazide 12.5 mg tablet 12.5 mg PO QAM 10/23/20 12/02/21 History propranolol 60 mg capsule,24 60 mg PO QAM 10/23/20 12/02/21 History hr,extended release rizatriptan 10 mg tablet (Maxalt) 10 mg PO DIRECTED PRN Migraine 06/02/21 12/02/21 History Headache potassium chloride 10 mEq 10 meq PO QAM #90 caps 06/10/21 12/02/21 Rx capsule,extended release levothyroxine 25 mcg tablet 25 mcg PO DAILY #14 tabs 07/09/21 12/02/21 Rx pantoprazole 20 mg tablet,delayed 20 mg PO QAM #90 tabs 07/29/21 12/02/21 Rx release Allergies Allergy/AdvReac Type Severity Reaction Status Date / Time Penicillins Allergy Mild RASH Verified 12/02/21 13:11 Sulfa (Sulfonamide Allergy Mild RASH Verified 12/02/21 13:11 Antibiotics) alendronate sodium Allergy Unknown CAN'T Verified 12/02/21 13:11 [From Fosamax] REMEMBER Past Med/Surg History Medical History Chronic headaches Elevated BP without diagnosis of hypertension Esophageal reflux Fatigue Gassiness Head trauma Hoarding disorder HTN (hypertension) Hyperlipidemia Intracranial bleed Migraine, unspecified, not intractable, without status migrainosus Osteoporosis PSVT (paroxysmal supraventricular tachycardia) Scalp laceration Syncope Surgical History H/O: hysterectomy History of tonsillectomy and adenoidectomy History of wisdom tooth extraction Family History Father Skin cancer Unknown Prostate cancer Alzheimer disease Heart disease Brother Testicular cancer Grandmother (Paternal) Stroke syndrome Denies family history of Ovarian cancer Myocardial infarction Breast cancer Colorectal cancer Social History Smoking Status: Never smoker Second Hand Exposure: No; Do You Dip or Chew Tobacco: No; Hx Alcohol Use: Yes Alcohol type: wine Alcohol Intake Frequency: Monthly or Less Hx Substance Use: No Preferred Language: Danish Communication Ability: Effective Visual Impairment: Limited Hearing Ability: Normal Contract Forester Required: No marital status: Single Current Living Situation: Alone current occupational status: retired How many Children do You have: 3 Feels Safe at Home: Yes Childhood Exposure to Second-Hand Smoke: Yes caffeine: No Dental Care, Regularly: Yes Physical Activity Frequency: Daily Seatbelt Use: always Sunscreen Use: Yes Assistive Devices: Cane Review of Systems Unobtainable due to cognitive status Physical Exam Vital Signs Vital Signs - 24 hr 06/09/23 09:48 06/09/23 10:35 06/09/23 11:10 Temperature 36.9 C Temperature Source Oral Pulse Rate 65 64 Pulse Rate [Apical] 69 Pulse Rhythm [Apical] Respiratory Rate 18 18 Respiratory Effort / Characteristics Non-Labored Spontaneous Respiratory Depth Normal Normal Respiratory Pattern Regular Blood Pressure [Right Arm] 177/92 H Blood Pressure Mean [Right Arm] 120 Blood Pressure Position [Right Arm] Lying Pulse Oximetry 97 Oxygen Delivery Method Room Air Sepsis Recent Fever Within 48 Hours No Sepsis New/Unexplained Change in Mental Status Yes Sepsis Action Taken by Nursing No Action Required 06/09/23 11:11 06/09/23 12:47 Temperature Temperature Source Pulse Rate Pulse Rate [Apical] 60 Pulse Rhythm [Apical] Regular Respiratory Rate 18 Respiratory Effort / Characteristics Non-Labored Spontaneous Respiratory Depth Normal Respiratory Pattern Regular Blood Pressure [Right Arm] 177/90 H Blood Pressure Mean [Right Arm] 119 Blood Pressure Position [Right Arm] Pulse Oximetry 97 97 Oxygen Delivery Method Room Air Room Air Sepsis Recent Fever Within 48 Hours Sepsis New/Unexplained Change in Mental Status Sepsis Action Taken by Nursing GENERAL: Patient is awake alert in no acute distress patient is resting comfortably and showing no signs of anxiety EYES: The conjunctivae are clear. The pupils are round and reactive. EARS, NOSE, MOUTH AND THROAT: The nose is without any evidence of any deformity. Mucous membranes are moist. Tongue is midline. NECK: The neck is nontender and supple. RESPIRATORY: Normal respiratory effort is noted there is no evidence of wheezing rhonchi or rales CARDIOVASCULAR: Regular rate and rhythm noted there no murmurs rubs or gallops normal S1 normal S2. GASTROINTESTINAL: The abdomen is soft. Abdomen is nontender. BACK: No midline tenderness or or step-off noted range of motion in flexion extension as well as rotation no signs of muscle spasm noted MUSCULOSKELETAL/EXTREMITIES: There is no evidence of gross deformity full range of motion is noted in the hips and shoulders. SKIN: There is no obvious evidence of any rash. There are no petechiae, pallor or cyanosis noted. NEUROLOGIC: Patient is awake alert and oriented x2 Course Reevaluation(s) Reevaluation #1: Patient is resting in no distress. Patient was started on IV Rocephin. Time: 11:42 Consultations Consultation #1: Case was discussed with Wang from the physician production administrative assistant group with [facility] will be admitted to Dr. Dawn for confusion, UTI and social service issues Time: 11:42 Administered Medications Parenteral Electrolytes (Plasma-Lyte A Ph 7.4) 1,000 mls @ 100 mls/hr IV .Q10H RIKKI Stop: 06/09/23 21:59 Last Admin: 06/09/23 11:56 Dose: 100 mls/hr Documented By: MIL Discontinued Medications Ceftriaxone Sodium (Rocephin) 2,000 mg in 70 mls @ 140 mls/hr IV NOW STA Stop: 06/09/23 11:58 Last Infusion: 06/09/23 12:22 Dose: 0 mls/hr Documented By: Admin: 06/09/23 11:56 Dose: 140 mls/hr Documented By: MIL Medical Decision Making Medical Records Attestation: I reviewed the patient's medical records. Home Medications Current Medication List: was personally reviewed by me Laboratory Data Attestation: I reviewed the patient's lab results. Lab results interpreted by me positive for urinary tract infection 06/09/23 10:10 06/09/23 10:10 Lab Results 06/09/23 06/09/23 06/09/23 Range/Units 10:10 10:10 10:10 WBC 4.17 L (4.8-10.8) K/ul RBC 4.04 L (4.20-5.40) M/uL Hgb 12.2 (12.0-16.0) g/dl Hct 37.3 (37.0-47.0) % MCV 92.3 (80.0-100.0) fL MCH 30.2 (25.0-34.0) pg MCHC 32.7 (32.0-36.0) g/dL RDW Std Deviation 43.5 (36.4-46.3) fL RDW Coeff of Mariella 12.7 (11.5-14.5) % Plt Count 230 (130-400) K/uL MPV 9.4 (9.4-12.4) fL Immature Gran % (Auto) 0.7 % Neut % (Auto) 57.8 % Lymph % (Auto) 29.3 % Elliott % (Auto) 11.3 % Eos % (Auto) 0.2 % Baso % (Auto) 0.7 % Neut # (Auto) 2.41 (1.40-6.50) K/uL Lymph # (Auto) 1.22 (1.2-3.4) K/uL Elliott # (Auto) 0.47 (0.11-0.59) K/uL Eos # (Auto) 0.01 (0-0.50) K/uL Baso # (Auto) 0.03 (0-0.2) K/uL Immature Gran # (Auto) 0.03 (0.01-0.20) K/uL Sodium 133 L (136-145) mmol/L Potassium 3.6 (3.5-5.1) mmol/L Chloride 101 (98-107) mmol/L Carbon Dioxide 24 (21-32) mmol/L Anion Gap 8 (3-11) BUN 12 (6-23) mg/dl Creatinine 0.72 (0.6-1.2) mg/dl Est Cr Clr Drug Dosing 54.2 ml/min Est GFR ( Amer) 91.7 ml/min Est GFR (Non-Af Amer) 79.1 ml/min BUN/Creatinine Ratio 16.7 (10-20) Glucose 94 (70-99(Fasting)) mg/dl Lactate (0.4-2.0) mmol/L Calcium 9.2 (8.6-10.3) mg/dl Magnesium 2.1 (1.7-2.4) mg/dl Total Bilirubin 0.6 (0.2-1.0) mg/dl Direct Bilirubin 0.1 (0-0.2) mg/dl AST 19 (13-39) U/L ALT 5 L (7-52) U/L Alkaline Phosphatase 45 (34-104) U/L Ammonia (18-72) umol/L Troponin I High Sens 3.3 (0-14) pg/ml Total Protein 7.2 (6.0-8.3) gm/dl Albumin 4.2 (3.4-5.0) gm/dl Procalcitonin < 0.05 (0-0.5) ng/ml TSH (0.300-4.500) uIu/ml Urine Color Urine Appearance (Clear) Urine pH (4.5-7.5) Ur Specific [place] (1.000-1.030) Urine Protein (Negative) Urine Glucose (UA) (Negative) Urine Ketones (Negative) Urine Blood (Negative) Urine Nitrite (Negative) Urine Bilirubin (Negative) Urine Urobilinogen (Negative) Ur Leukocyte Esterase (Negative) Urine WBC (Auto) (0-5) /hpf Urine RBC (Auto) (0-4) /hpf U Hyaline Cast (Auto) (0-5) /lpf U Epithel Cells (Auto) (0-5) /lpf Urine Bacteria (Auto) (Negative) Urine Opiates Screen (Neg) Ur Methadone, Qual (Neg) Urine Barbiturates (Neg) Ur Phencyclidine (PCP) (Neg) U Amphetamin/Meth Scrn (Neg) MDMA (Ecstasy) Screen (Neg) U Benzodiazepines Scrn (Neg) Ur Cocaine Metabolite (Neg) U Marijuana (THC) Screen (Neg) Ethyl Alcohol mg/dL (<10.0) mg/dl 06/09/23 06/09/23 06/09/23 Range/Units 10:25 10:30 10:30 WBC (4.8-10.8) K/ul RBC (4.20-5.40) M/uL Hgb (12.0-16.0) g/dl Hct (37.0-47.0) % MCV (80.0-100.0) fL MCH (25.0-34.0) pg MCHC (32.0-36.0) g/dL RDW Std Deviation (36.4-46.3) fL RDW Coeff of Mariella (11.5-14.5) % Plt Count (130-400) K/uL MPV (9.4-12.4) fL Immature Gran % (Auto) % Neut % (Auto) % Lymph % (Auto) % Elliott % (Auto) % Eos % (Auto) % Baso % (Auto) % Neut # (Auto) (1.40-6.50) K/uL Lymph # (Auto) (1.2-3.4) K/uL Elliott # (Auto) (0.11-0.59) K/uL Eos # (Auto) (0-0.50) K/uL Baso # (Auto) (0-0.2) K/uL Immature Gran # (Auto) (0.01-0.20) K/uL Sodium (136-145) mmol/L Potassium (3.5-5.1) mmol/L Chloride (98-107) mmol/L Carbon Dioxide (21-32) mmol/L Anion Gap (3-11) BUN (6-23) mg/dl Creatinine (0.6-1.2) mg/dl Est Cr Clr Drug Dosing ml/min Est GFR ( Amer) ml/min Est GFR (Non-Af Amer) ml/min BUN/Creatinine Ratio (10-20) Glucose (70-99(Fasting)) mg/dl Lactate 1.5 (0.4-2.0) mmol/L Calcium (8.6-10.3) mg/dl Magnesium (1.7-2.4) mg/dl Total Bilirubin (0.2-1.0) mg/dl Direct Bilirubin (0-0.2) mg/dl AST (13-39) U/L ALT (7-52) U/L Alkaline Phosphatase (34-104) U/L Ammonia (18-72) umol/L Troponin I High Sens (0-14) pg/ml Total Protein (6.0-8.3) gm/dl Albumin (3.4-5.0) gm/dl Procalcitonin (0-0.5) ng/ml TSH (0.300-4.500) uIu/ml Urine Color Yellow Urine Appearance Clear (Clear) Urine pH 6.5 (4.5-7.5) Ur Specific [place] 1.007 (1.000-1.030) Urine Protein Negative (Negative) Urine Glucose (UA) Negative (Negative) Urine Ketones Negative (Negative) Urine Blood Negative (Negative) Urine Nitrite Negative (Negative) Urine Bilirubin Negative (Negative) Urine Urobilinogen Negative (Negative) Ur Leukocyte Esterase Trace H (Negative) Urine WBC (Auto) 1-5 (0-5) /hpf Urine RBC (Auto) 0-4 (0-4) /hpf U Hyaline Cast (Auto) 1-5 (0-5) /lpf U Epithel Cells (Auto) >30 H (0-5) /lpf Urine Bacteria (Auto) 4+ H (Negative) Urine Opiates Screen Neg (Neg) Ur Methadone, Qual Neg (Neg) Urine Barbiturates Neg (Neg) Ur Phencyclidine (PCP) Neg (Neg) U Amphetamin/Meth Scrn Neg (Neg) MDMA (Ecstasy) Screen Neg (Neg) U Benzodiazepines Scrn Neg (Neg) Ur Cocaine Metabolite Neg (Neg) U Marijuana (THC) Screen Neg (Neg) Ethyl Alcohol mg/dL (<10.0) mg/dl 06/09/23 06/09/23 06/09/23 Range/Units 12:11 12:11 12:11 WBC (4.8-10.8) K/ul RBC (4.20-5.40) M/uL Hgb (12.0-16.0) g/dl Hct (37.0-47.0) % MCV (80.0-100.0) fL MCH (25.0-34.0) pg MCHC (32.0-36.0) g/dL RDW Std Deviation (36.4-46.3) fL RDW Coeff of Mariella (11.5-14.5) % Plt Count (130-400) K/uL MPV (9.4-12.4) fL Immature Gran % (Auto) % Neut % (Auto) % Lymph % (Auto) % Elliott % (Auto) % Eos % (Auto) % Baso % (Auto) % Neut # (Auto) (1.40-6.50) K/uL Lymph # (Auto) (1.2-3.4) K/uL Elliott # (Auto) (0.11-0.59) K/uL Eos # (Auto) (0-0.50) K/uL Baso # (Auto) (0-0.2) K/uL Immature Gran # (Auto) (0.01-0.20) K/uL Sodium (136-145) mmol/L Potassium (3.5-5.1) mmol/L Chloride (98-107) mmol/L Carbon Dioxide (21-32) mmol/L Anion Gap (3-11) BUN (6-23) mg/dl Creatinine (0.6-1.2) mg/dl Est Cr Clr Drug Dosing ml/min Est GFR ( Amer) ml/min Est GFR (Non-Af Amer) ml/min BUN/Creatinine Ratio (10-20) Glucose (70-99(Fasting)) mg/dl Lactate (0.4-2.0) mmol/L Calcium (8.6-10.3) mg/dl Magnesium (1.7-2.4) mg/dl Total Bilirubin (0.2-1.0) mg/dl Direct Bilirubin (0-0.2) mg/dl AST (13-39) U/L ALT (7-52) U/L Alkaline Phosphatase (34-104) U/L Ammonia 13.0 L (18-72) umol/L Troponin I High Sens (0-14) pg/ml Total Protein (6.0-8.3) gm/dl Albumin (3.4-5.0) gm/dl Procalcitonin (0-0.5) ng/ml TSH 1.964 (0.300-4.500) uIu/ml Urine Color Urine Appearance (Clear) Urine pH (4.5-7.5) Ur Specific [place] (1.000-1.030) Urine Protein (Negative) Urine Glucose (UA) (Negative) Urine Ketones (Negative) Urine Blood (Negative) Urine Nitrite (Negative) Urine Bilirubin (Negative) Urine Urobilinogen (Negative) Ur Leukocyte Esterase (Negative) Urine WBC (Auto) (0-5) /hpf Urine RBC (Auto) (0-4) /hpf U Hyaline Cast (Auto) (0-5) /lpf U Epithel Cells (Auto) (0-5) /lpf Urine Bacteria (Auto) (Negative) Urine Opiates Screen (Neg) Ur Methadone, Qual (Neg) Urine Barbiturates (Neg) Ur Phencyclidine (PCP) (Neg) U Amphetamin/Meth Scrn (Neg) MDMA (Ecstasy) Screen (Neg) U Benzodiazepines Scrn (Neg) Ur Cocaine Metabolite (Neg) U Marijuana (THC) Screen (Neg) Ethyl Alcohol mg/dL < 10.0 (<10.0) mg/dl Imaging Data Attestation: I personally reviewed and interpreted this imaging study as follows: My Impression: Chest x-ray interpreted by me negative for infiltrate CT of the brain interpreted by me negative for acute Radiologist's Impression: Chest X-Ray 06/09/23 10:17 XR chest 1V portable HISTORY: Sepsis COMPARISON: Chest 06/02/2021. FINDINGS: Slightly rotated study. No pneumothorax. No pleural effusions. No new focal lung consolidations to suggest a pneumonia. No evidence for pulmonary edema. There are old, healed left-sided rib fractures. There is a tortuous thoracic aorta and mild cardiomegaly, unchanged. Mild interstitial prominence, unchanged. This is likely chronic. S-shaped scoliosis of the thoracolumbar spine again noted. A 1 cm dense nodule within the right lung apex, unchanged. This favors a calcified granuloma. IMPRESSION: No significant change compared to the prior study. No acute process. ACT 112: Negative or not required by law. Electronically signed by: Fernando Scales M.D. 06/09/2023 10:[address] 06/09/23 10:[address] DOSE: 625.80 mGy.cm HISTORY: Altered mental status. TECHNIQUE: Multiaxial CT images of the head were performed without the use of intravenous contrast. Automated exposure control was utilized for this study. A dose lowering technique was utilized adhering to the principles of ALARA. Comparison: Head CT 04/29/2021. Findings: The paranasal sinuses and mastoid air cells are clear. The calvarium and skull base are intact. There is no mass, hematoma, midline shift, acute infarct. White matter hypodensity is nonspecific but suggestive of microvascular ischemic change. The ventricles and sulci demonstrate mild age-related inv olutional changes. Impression: No acute intracranial abnormality. Atrophy and microvascular ischemic changes. ACT 112: Negative or not required by law. Electronically signed by: Fernando Scales M.D. 06/09/2023 11:19 AM [facility] Narrative Medical decision making differential diagnosis includes dementia, electrolyte abnormality, dehydration, metabolic derangement, urinary tract infection Plan is to check sepsis labs, CT, observe External medical records were reviewed by me Patient's lab work is unremarkable I do not suspect the patient be septic, patient was started on IV Rocephin, patient CT is negative. Patient will be admitted for further evaluation treatment of UTI and potential placement Impression & Plan Acute confusion, Acute UTI (urinary tract infection) Discharge Plan Visit Data Chief Complaint: Confusion Stated Complaint: CONFUSION ED Provider: Salvatore Agrawal Discharge Problem: Acute confusion, Acute UTI (urinary tract infection) Patient Disposition: Admitted As Inpatient Forms Stand Alone Forms: My [facility] Prescriptions Prescriptions: No Action potassium chloride 10 mEq capsule, extended release 10 meq PO QAM Qty: 90 3RF levothyroxine 25 mcg tablet 25 mcg PO DAILY Qty: 14 0RF pantoprazole 20 mg tablet,delayed release (DR/EC) 20 mg PO QAM Qty: 90 3RF calcium carbonate-vitamin D3 600 mg calcium- 200 unit capsule 1 cap PO QAM multivitamin tablet 1 tab PO QAM cholecalciferol (vitamin D3) [Vitamin D3] 1,000 unit capsule 1,000 units PO QAM loratadine 10 mg capsule 10 mg PO DAILY PRN (Reason: allergy symptoms) propranolol 60 mg capsule,extended release 24 hr 60 mg PO QAM hydrochlorothiazide 12.5 mg tablet 12.5 mg PO QAM Saccharomyces boulardii [Florastor] 250 mg capsule 250 mg PO BID Qty: 20 0RF Rx Instructions: swallow whole famotidine 20 mg tablet 20 mg PO BID Qty: 20 0RF rizatriptan [Maxalt] 10 mg tablet 10 mg PO DIRECTED PRN (Reason: Migraine Headache) Referrals Referrals: PCP,NO [Primary Care Provider] -
[2023-06-09 10:34] LABS: Basophils # (auto) 0.03 K/uL (0-0.2); Basophils % (auto) 0.7 %; Eosinophils # (auto) 0.01 K/uL (0-0.50); Eosinophils % (auto) 0.2 %; Hematocrit (blood only) 37.3 % (37.0-47.0); Hemoglobin 12.2 g/dl (12.0-16.0); Immature Granulocytes # (auto) 0.03 K/uL (0.01-0.20); Immature Granulocytes % (auto) 0.7 %; Lymphocytes # (auto) 1.22 K/uL (1.2-3.4); Lymphocytes % (auto) 29.3 %; Mean Corpuscular Hemoglobin 30.2 pg (25.0-34.0); Mean Corpuscular Hgb Conc 32.7 g/dL (32.0-36.0); Mean Corpuscular Volume 92.3 fL (80.0-100.0); Mean Platelet Volume 9.4 fL (9.4-12.4); Monocytes # (auto) 0.47 K/uL (0.11-0.59); Monocytes % (auto) 11.3 %; Neutrophils # (auto) 2.41 K/uL (1.40-6.50); Neutrophils % (auto) 57.8 %; Platelet Count 230 K/uL (130-400); RDW Coefficient of Variation 12.7 % (11.5-14.5); RDW Standard Deviation 43.5 fL (36.4-46.3); Red Blood Count 4.04 M/uL (4.20-5.40); White Blood Count 4.17 K/ul (4.8-10.8)
--- NOTE | 2023-06-09 10:44 | XRay Report ---
XR chest 1V portable HISTORY: Sepsis COMPARISON: Chest 06/02/2021. FINDINGS: Slightly rotated study. No pneumothorax. No pleural effusions. No new focal lung consolidat ions to suggest a pneumonia. No evidence for pulmonary edema. There are old, healed left-sided rib fr actures. There is a tortuous thoracic aorta and mild cardiomegaly, unchanged. Mild interstitial promi nence, unchanged. This is likely chronic. S-shaped scoliosis of the thoracolumbar spine again noted. A 1 cm dense nodule within the right lung apex, unchanged. This favors a calcified granuloma. IMPRESSION: No significant change compared to the prior study. No acute process. ACT 112: Negative or not required by law. Electronically signed by: Fernando Scales M.D. 06/09/2023 10:42 AM
[2023-06-09 10:52] LABS: Albumin Level 4.2 gm/dl (3.4-5.0); BUN Creatinine Ratio 16.7 (10-20); Bilirubin Direct 0.1 mg/dl (0-0.2); Bilirubin,Total 0.6 mg/dl (0.2-1.0); Calcium 9.2 mg/dl (8.6-10.3); Creatinine Clr Calc Pharmacy 54.2 ml/min; Est GFR (African American) 91.7 ml/min; Est GFR (Non-African American) 79.1 ml/min; Magnesium 2.1 mg/dl (1.7-2.4); Potassium 3.6 mmol/L (3.5-5.1); Total Protein 7.2 gm/dl (6.0-8.3)
[2023-06-09 10:57] LABS: Troponin I High Sensitivity 3.3 pg/ml (0-14)
[2023-06-09 11:13] LABS: Appearance Urine Clear (Clear); Bacteria Urine Automated 4+ (Negative); Bilirubin Urine Negative (Negative); Blood Urine Negative (Negative); Color Urine Yellow; Epithelial Cell Urine Auto >30 /lpf (0-5); Glucose Urine UA Negative (Negative); Ketones Urine Negative (Negative); Leukocyte Esterase Urine Trace (Negative); Nitrite Urine Negative (Negative); Protein Urine Negative (Negative); RBC Urine Automated 0-4 /hpf (0-4); Specific Gravity Urine 1.007 (1.000-1.030); Urobilinogen Urine Negative (Negative); pH Urine 6.5 (4.5-7.5)
--- NOTE | 2023-06-09 11:21 | CT Scan Report ---
HEAD CT NONCONTRAST CT DOSE: 625.80 mGy.cm HISTORY: Altered mental status. TECHNIQUE: Multiaxial CT images of the head were performed without the use of intravenous contrast. A utomated exposure control was utilized for this study. A dose lowering technique was utilized adheri ng to the principles of ALARA. Comparison: Head CT 04/29/2021. Findings: The paranasal sinuses and mastoid air cells are clear. The calvarium and skull base are int act. There is no mass, hematoma, midline shift, acute infarct. White matter hypodensity is nonspecifi c but suggestive of microvascular ischemic change. The ventricles and sulci demonstrate mild age-rela regina involutional changes. Impression: No acute intracranial abnormality. Atrophy and microvascular ischemic changes. ACT 112: Negative or not required by law. Electronically signed by: Fernando Scales M.D. 06/09/2023 11:19 AM
[2023-06-09] MEDS ORDERED: cefTRIAXone SODIUM 2,000 MG/70 ML BAG IV STA (11:29)
--- NOTE | 2023-06-09 11:41 | History & Physical Report ---
Date of Service June 09, 2023 Assessment & Plan (1) Altered mental status: Plan: -Admit to med/sure -Currently stable -At this time it appears that the patient has baseline dementia which has been getting more severe per family -Her children have been working with social work specialist to obtain more care -Cannot rule out possible UTI at this time with her equovical UA -CT head and chest xray without acute findings, no focal neuro defects on exam -Will obtain TSH, ammonia, medical alcohol level, urine tox screen, thiamine, and folic acid levels -Fall and aspiration precautions -PT/OT/Case management consults placed -Will give 1L Normosol for now as she appears dehydrated on exam -SQ heparin for DVT PPX -HH, minced/moist diet -AM CBC, CMP, Mag (2) Acute UTI (urinary tract infection): Plan: -UA equivocal today -S/P one dose of Ceftriaxone in the ED -Will continue q24H ceftriaxone for a total of 3 days for possible UTI (3) Hyponatremia: Plan: -Sodium at 133 today -Likely due to dehydration and poor oral intake -Follow daily electrolytes after IV fluids (4) Hypothyroidism: Plan: -Unsure if she has been taking any medications at this time -Will follow TSH with free T-4 if needed -Will hold levothyroxine until TSH is back (5) HTN (hypertension): Plan: -Was previously on hydrochlorothiazide, unsure of last dose or last time any medications were refilled -Will hold antihypertensives for now and monitor (6) PSVT (paroxysmal supraventricular tachycardia): Plan: -ECG shows sinus bradycardia today -Patient is asymptomatic -Continue to monitor for now Plan The patient was discussed with Dr. Dawn at the time of the admission History of Present Illness Chief Complaint: AMS Primary Care Provider: DEB HERNANDEZ Kolton is an 78 year old female with a PMH significant for HTN, PSVT, insomnia, hoarding disorder, aortic valve sclerosis, migraines, hypothyroidism, and syncope who presented to the [facility] ED via EMS on 06/09 after being found wandering the halls, confused, by her Neighbor. In the ED the patient was noted to he hypertensive at 177/92 but otherwise stable. Labs were significant for a glucose of 94, sodium of 133, and UA with trace leukocyte esterase, negative nitrites, >30 epithelial cells, and 4+ bacteria. CT of the head was read as "No acute intracranial abnormality. Atrophy and microvascular ischemic changes.". Chest xray was read as "No significant change compared to the prior study. No acute process.". Prior to admission the patient was given one dose of ceftriaxone. We were asked to admit the patient as she lives alone and is not safe to return home at this time. At the time of the exam the patient was sitting in bed in not acute distress. History was limited due to the patient's current mental status. The patient knows who she is and that we are in [place] but is otherwise confused. She denies any complaints at this time and is unaware why she was taken to the ED this morning. She denies any pain or other complaints. I was able to get in touch with the Patient's daughter, Deloris Elizabeth ([phone]) who was able to provide additional history. Deloris explains that the patient has dementia, which has been getting progressively worse over the past few months. The patient's son's were recently visiting her and went back home yesterday. The patient's children are working with social work specialist to obtain more care for their mother as she cannot take care of herself anymore. Her daughter denies the patient having a significant history of alcohol or drug abuse. Her daughter is unsure of what medications she may have been taking recently. For now they would like her to be a Full Code and will continue to discuss her code status moving forward. Please refer to Dr. Dawn's attestation for any changes to the treatment plan Allergies Allergy/AdvReac Type Severity Reaction Status Date / Time Penicillins Allergy Mild RASH Verified 12/02/21 13:11 Sulfa (Sulfonamide Allergy Mild RASH Verified 12/02/21 13:11 Antibiotics) alendronate sodium Allergy Unknown CAN'T Verified 12/02/21 13:11 [From Fosamax] REMEMBER Home Medications Medication Instructions Recorded Confirmed Type calcium carbonate 600 mg-vitamin 1 cap PO QAM 06/05/19 12/02/21 History D3 5 mcg (200 unit) capsule cholecalciferol (vitamin D3) 25 1,000 units PO QAM 06/05/19 12/02/21 History mcg (1,000 unit) capsule (Vitamin D3) multivitamin 1 tab PO QAM 06/05/19 12/02/21 History loratadine 10 mg capsule 10 mg PO DAILY PRN allergy symptoms 08/04/20 12/02/21 History Saccharomyces boulardii 250 mg 250 mg PO BID #20 caps 10/23/20 12/02/21 Rx capsule (Florastor) famotidine 20 mg tablet 20 mg PO BID #20 tabs 10/23/20 12/02/21 Rx rizatriptan 10 mg tablet (Maxalt) 10 mg PO DIRECTED PRN Migraine 06/02/21 12/02/21 History Headache levothyroxine 25 mcg tablet 25 mcg PO DAILY #14 tabs 07/09/21 12/02/21 Rx pantoprazole 20 mg tablet,delayed 20 mg PO QAM #90 tabs 07/29/21 12/02/21 Rx release amlodipine 5 mg tablet (Norvasc) 2.5 mg PO PM #30 tabs 06/13/23 Rx lisinopril 2.5 mg tablet 2.5 mg PO PM #30 tabs 06/13/23 Rx Past Med/Surg History Medical History Chronic headaches Elevated BP without diagnosis of hypertension Esophageal reflux Fatigue Gassiness Head trauma Hoarding disorder HTN (hypertension) Hyperlipidemia Intracranial bleed Migraine, unspecified, not intractable, without status migrainosus Osteoporosis PSVT (paroxysmal supraventricular tachycardia) Scalp laceration Syncope Surgical History H/O: hysterectomy History of tonsillectomy and adenoidectomy History of wisdom tooth extraction Family History Father Skin cancer Unknown Prostate cancer Alzheimer disease Heart disease Brother Testicular cancer Grandmother (Paternal) Stroke syndrome Denies family history of Ovarian cancer Myocardial infarction Breast cancer Colorectal cancer Social History Smoking Status: Never smoker Second Hand Exposure: No; Do You Dip or Chew Tobacco: No; Hx Alcohol Use: Yes Alcohol type: wine Alcohol Intake Frequency: Monthly or Less Hx Substance Use: No Preferred Language: Turkish Communication Ability: Effective Visual Impairment: Limited Hearing Ability: Normal Heater Operator Required: No marital status: Single Current Living Situation: Alone current occupational status: retired How many Children do You have: 3 Feels Safe at Home: Yes Childhood Exposure to Second-Hand Smoke: Yes caffeine: No Dental Care, Regularly: Yes Physical Activity Frequency: Daily Seatbelt Use: always Sunscreen Use: Yes Assistive Devices: Walker Physical Exam Physical Exam: Physical Exam: General: In no acute distress, stated age, non-toxic appearing, poor hygiene HEENT: Normocephalic, atraumatic, no scleral icterus, pupils around round, symmetrical, and reactive to light, dry mucus membranes, trachea midline, no thyromegaly Chest/Pulm: No respiratory distress, symmetrical chest expansion, clear breath sounds throughout Cardiac: RRR, no murmurs noted Abdomen: Negative for ascites and bruising, normoactive bowel sounds, soft, non-tender to palpation throughout Musculoskeletal: Symmetrical and without signs of acute trauma, upper and lower extremities with full ROM, no atrophy, spasticity, or flaccidity Extremities: Radial, dorsalis pedis, and posterior tibial pulses are intact and symmetrical, no edema noted in the BL LE's Skin: Warm, dry, no rashes , lesions, or scars noted Neuro: Alert and oriented to person and town only, no focal defects, CN II- XII tested and intact, finger to nose test negative, no tremors noted Psych: No acute distress, pleasantly confused, calm and cooperative during the exam Results & Data Results & Data Vital Signs (Past 12 Hours) Vital Signs Temp Pulse Pulse Resp BP Pulse Ox O2 Del Method 06/09/23 11:11 97 Room Air 06/09/23 11:10 69 18 177/92 H 97 Room Air 06/09/23 10:35 64 06/09/23 09:48 36.9 C 65 18 Laboratory Results Abnormal lab results 06/09/23 06/09/23 06/09/23 Range/Units 10:10 10:10 10:30 WBC 4.17 L (4.8-10.8) K/ul RBC 4.04 L (4.20-5.40) M/uL Sodium 133 L (136-145) mmol/L ALT 5 L (7-52) U/L Ur Leukocyte Esterase Trace H (Negative) U Epithel Cells (Auto) >30 H (0-5) /lpf Urine Bacteria (Auto) 4+ H (Negative) Diagnostic Findings Chest X-Ray 06/09/23 10:17 XR chest 1V portable HISTORY: Sepsis COMPARISON: Chest 06/02/2021. FINDINGS: Slightly rotated study. No pneumothorax. No pleural effusions. No new focal lung consolidations to suggest a pneumonia. No evidence for pulmonary edema. There are old, healed left-sided rib fractures. There is a tortuous thoracic aorta and mild cardiomegaly, unchanged. Mild interstitial prominence, unchanged. This is likely chronic. S-shaped scoliosis of the thoracolumbar spine again noted. A 1 cm dense nodule within the right lung apex, unchanged. This favors a calcified granuloma. IMPRESSION: No significant change compared to the prior study. No acute process. ACT 112: Negative or not required by law. Electronically signed by: Fernando Scales M.D. 06/09/2023 10:[address] 06/09/23 10:[address] DOSE: 625.80 mGy.cm HISTORY: Altered mental status. TECHNIQUE: Multiaxial CT images of the head were performed without the use of intravenous contrast. Automated exposure control was utilized for this study. A dose lowering technique was utilized adhering to the principles of ALARA. Comparison: Head CT 04/29/2021. Findings: The paranasal sinuses and mastoid air cells are clear. The calvarium and skull base are intact. There is no mass, hematoma, midline shift, acute infarct. White matter hypodensity is nonspecific but suggestive of microvascular ischemic change. The ventricles and sulci demonstrate mild age-related involutional changes. Impression: No acute intracranial abnormality. Atrophy and microvascular ischemic changes. ACT 112: Negative or not required by law. Electronically signed by: Fernando Scales M.D. 06/09/2023 11:19 AM ECG Additional Comments: Sinus bradycardia Otherwise normal ECG When compared with ECG of 02-JUN-2021 21:49, No significant change was found Code Status & VTE Plan Code Status full code VTE Prophylaxis Plan VTE Prophylaxis will be ordered: Yes Supervising Physician Co-Signing Physician Notes I personally saw and examined the patient. I verified all mc points and agree with Wang Hickey PA-C with the following exceptions and/or additions: 78 year old female presents to the ER with altered mental state. Unable to get any history from patient. Please see collateral history taken by PA as above. O/E Alert, orientated to person only, HS RRR, no murmurs, Chest CTAB, Abdo SNT, no CVA tenderness A/P Altered mental state - suspect mostly underlying progression of dementia. Possible UTI - ceftriaxone, follow up urine culture. PG Care Time/CCT Total # of Minutes Spent Total Time Spent with Patient: Total time spent is greater than 50% in coordination of care (as documented) at patient's floor/unit and/or counseling patient: [place] [address] INT INP/OBS CARE 2/55MIN Patient Type Established Medical Decision Making Moderate Complexity Diagnoses Altered mental status R41.82 Acute UTI (urinary tract infection) N39.0 Hyponatremia E87.1 Hypothyroidism E03.9 HTN (hypertension) I10 Hypertension type: essential hypertension PSVT (paroxysmal supraventricular tachycardia) I47.1 (5) HTN (hypertension) Hypertension type: essential hypertension Qualified Code(s): I10 - Essential (primary) hypertension
[2023-06-09] MEDS ORDERED: PLASMA-LYTE A 1,000 ML IV SCH (12:00)
--- NOTE | 2023-06-09 12:57 | Electrocardiogram Report ---
Test Reason : Blood Pressure : / mmHG Vent. Rate : 053 BPM Atrial Rate : 053 BPM P-R Int : 174 ms QRS Dur : 082 ms QT Int : 444 ms P-R-T Axes : 081 035 052 degrees QTc Int : 416 ms Sinus bradycardia Otherwise normal ECG When compared with ECG of 02-JUN-2021 21:49, No significant change was found Confirmed by Yousuf Walker ([id number]) on 06/09/2023 12:56:32 PM Referred By: REFERRED SELF Confirmed By:Yousuf Walker
[2023-06-09 13:06] LABS: Amphetamines+Metham, Urine Neg (Neg); Barbiturates, Urine Neg (Neg); Benzodiazepine, Urine Neg (Neg); Cocaine, Urine Neg (Neg); MDMA (Ecstacy), Urine Neg (Neg); Methadone, Urine Neg (Neg); Opiate, Urine Neg (Neg); Phencyclidine, Urine Neg (Neg)
[2023-06-09] MEDS ORDERED: ACETAMINOPHEN 325 MG TAB PO PRN (14:04)
[2023-06-09] MEDS: ENOXAPARIN INJ 40 MG/0.4 ML SYR SQ SCH (17:41)
[2023-06-09 18:21] LABS: Folate (Folic Acid),Ser orPlas 15.26 ng/ml (>5.38)
[2023-06-10 08:29] LABS: BUN Creatinine Ratio 15.7 (10-20); Calcium 8.5 mg/dl (8.6-10.3); Creatinine Clr Calc Pharmacy 48.7 ml/min; Est GFR (African American) 94.8 ml/min; Est GFR (Non-African American) 81.8 ml/min; Magnesium 2.1 mg/dl (1.7-2.4); Potassium 3.7 mmol/L (3.5-5.1)
[2023-06-10 09:39] LABS: Basophils # (auto) 0.01 K/uL (0-0.2); Basophils % (auto) 0.3 %; Eosinophils # (auto) 0.04 K/uL (0-0.50); Eosinophils % (auto) 1.1 %; Hematocrit (blood only) 35.6 % (37.0-47.0); Immature Granulocytes # (auto) 0.01 K/uL (0.01-0.20); Immature Granulocytes % (auto) 0.3 %; Lymphocytes # (auto) 1.09 K/uL (1.2-3.4); Mean Corpuscular Hemoglobin 30.8 pg (25.0-34.0); Mean Corpuscular Hgb Conc 33.7 g/dL (32.0-36.0); Mean Corpuscular Volume 91.3 fL (80.0-100.0); Mean Platelet Volume 9.9 fL (9.4-12.4); Monocytes % (auto) 11.4 %; Neutrophils # (auto) 1.97 K/uL (1.40-6.50); Neutrophils % (auto) 55.9 %; Platelet Count 230 K/uL (130-400); RDW Coefficient of Variation 12.8 % (11.5-14.5); RDW Standard Deviation 42.4 fL (36.4-46.3); White Blood Count 3.52 K/ul (4.8-10.8)
[2023-06-10] MEDS: cefTRIAXone SODIUM 2,000 MG in DEXTROSE 5% 50 ML IV SCH (13:55)
[2023-06-10] MEDS: ENOXAPARIN INJ 40 MG/0.4 ML SYR SQ SCH (18:53)
--- NOTE | 2023-06-10 22:24 | Hospitalist Progress Note ---
Date of Service June 10, 2023 Assessment & Plan (1) Altered mental status: Plan: -Admit to med/sure -Currently stable -At this time it appears that the patient has baseline dementia which has been getting more severe per family -Her children have been working with child protective services social worker to obtain more care -Cannot rule out possible UTI at this time with her equovical UA -CT head and chest xray without acute findings, no focal neuro defects on exam -obtained TSH, ammonia, medical alcohol level, urine tox screen, thiamine, and folic acid levels -Fall and aspiration precautions -PT/OT/Case management consults placed -continue above treatment, continue to treat possible UTI< awaiting cultures. -SQ heparin for DVT PPX -HH, minced/moist diet -AM CBC, CMP, Mag (2) Acute UTI (urinary tract infection): Plan: -UA equivocal today -S/P one dose of Ceftriaxone in the ED -Will continue q24H ceftriaxone for a total of 3 days for possible UTI (3) Hyponatremia: Plan: -Sodium at 133 today -Likely due to dehydration and poor oral intake -Follow daily electrolytes after IV fluids (4) Hypothyroidism: Plan: -Unsure if she has been taking any medications at this time -Will follow TSH with free T-4 if needed -Will hold levothyroxine until TSH is back (5) HTN (hypertension): Plan: -Was previously on hydrochlorothiazide, unsure of last dose or last time any medications were refilled -Will hold antihypertensives for now and monitor (6) PSVT (paroxysmal supraventricular tachycardia): Plan: -ECG shows sinus bradycardia today -Patient is asymptomatic -Continue to monitor for now Admission and Anticipated Discharge Date Admission Date: June 09, 2023 Subjective Patient remains confused. Review of Systems Review of Systems: Unobtainable due to cognitive status Physical Exam Physical Exam: General: In no acute distress, stated age, non-toxic appearing, poor hygiene HEENT: Normocephalic, atraumatic, no scleral icterus, pupils around round, symmetrical, and reactive to light, dry mucus membranes, trachea midline, no thyromegaly Chest/Pulm: No respiratory distress, symmetrical chest expansion, clear breath sounds throughout Cardiac: RRR, no murmurs noted Abdomen: Negative for ascites and bruising, normoactive bowel sounds, soft, non- tender to palpation throughout Musculoskeletal: Symmetrical and without signs of acute trauma, upper and lower extremities with full ROM, no atrophy, spasticity, or flaccidity Extremities: Radial, dorsalis pedis, and posterior tibial pulses are intact and symmetrical, no edema noted in the BL LE's Skin: Warm, dry, no rashes , lesions, or scars noted Neuro: Alert and oriented to person and town only, no focal defects, CN II-XII tested and intact, finger to nose test negative, no tremors noted Psych: No acute distress, pleasantly confused, calm and cooperative during the exam Results & Data Results & Data Vital Signs (Past 12 Hours) Vital Signs Temp Pulse Resp BP BP Pulse Ox Pulse Ox 06/10/23 22:04 36.6 C 54 L 18 157/87 H 98 06/10/23 15:19 96 06/10/23 14:56 36.8 C 61 14 112/69 96 06/10/23 12:03 36.8 C 48 L 16 153/73 H O2 Del Method O2 Del Method 06/10/23 22:04 Room Air 06/10/23 15:19 Room Air 06/10/23 14:56 Room Air 06/10/23 12:03 Room Air PG Care Time/CCT Total # of Minutes Spent Total Time Spent with Patient: Total time spent is greater than 50% in coordination of care (as documented) at patient's floor/unit and/or counseling patient: Coding Level of Care Code 63952 SUB INP/OBS CARE 2/35MIN Diagnoses Altered mental status R41.82 Acute UTI (urinary tract infection) N39.0 Hyponatremia E87.1 Hypothyroidism E03.9 HTN (hypertension) I10 Hypertension type: essential hypertension PSVT (paroxysmal supraventricular tachycardia) I47.1 (5) HTN (hypertension) Hypertension type: essential hypertension Qualified Code(s): I10 - Essential (primary) hypertension
[2023-06-11 06:45] LABS: Basophils # (auto) 0.02 K/uL (0-0.2); Basophils % (auto) 0.6 %; Eosinophils # (auto) 0.03 K/uL (0-0.50); Eosinophils % (auto) 0.9 %; Hematocrit (blood only) 36.2 % (37.0-47.0); Hemoglobin 12.3 g/dl (12.0-16.0); Immature Granulocytes # (auto) 0.02 K/uL (0.01-0.20); Immature Granulocytes % (auto) 0.6 %; Lymphocytes # (auto) 1.27 K/uL (1.2-3.4); Mean Corpuscular Hemoglobin 31.1 pg (25.0-34.0); Mean Corpuscular Volume 91.4 fL (80.0-100.0); Mean Platelet Volume 9.5 fL (9.4-12.4); Neutrophils % (auto) 47.9 %; Platelet Count 217 K/uL (130-400); RDW Coefficient of Variation 12.6 % (11.5-14.5); Red Blood Count 3.96 M/uL (4.20-5.40); White Blood Count 3.34 K/ul (4.8-10.8)
[2023-06-11 07:03] LABS: BUN Creatinine Ratio 22.1 (10-20); Calcium 8.8 mg/dl (8.6-10.3); Creatinine Clr Calc Pharmacy 50.1 ml/min; Est GFR (African American) 95.8 ml/min; Est GFR (Non-African American) 82.6 ml/min; Phosphorus 3.5 mg/dl (2.5-4.9); Potassium 3.8 mmol/L (3.5-5.1)
[2023-06-11] MEDS: cefTRIAXone SODIUM 2,000 MG in DEXTROSE 5% 50 ML IV SCH (12:00)
[2023-06-11] MEDS: ENOXAPARIN INJ 40 MG/0.4 ML SYR SQ SCH (15:28)
--- NOTE | 2023-06-11 17:03 | Hospitalist Progress Note ---
Date of Service June 11, 2023 Assessment & Plan (1) Altered mental status: Plan: -Admit to med/sure -Currently stable -At this time it appears that the patient has baseline dementia which has been getting more severe per family -Her children have been working with social insurance specialist to obtain more care -Cannot rule out possible UTI at this time with her equovical UA -CT head and chest xray without acute findings, no focal neuro defects on exam -obtained TSH, ammonia, medical alcohol level, urine tox screen, thiamine, and folic acid levels -Fall and aspiration precautions -PT/OT/Case management consults placed -continue above treatment, continue to treat possible UTI< awaiting cultures. -SQ heparin for DVT PPX -HH, minced/moist diet -Patient is stable, pending placement. -Awaiting urine cultures (2) Acute UTI (urinary tract infection): Plan: -UA equivocal today -S/P one dose of Ceftriaxone in the ED -Will continue q24H ceftriaxone for a total of 3 days for possible UTI -Awaiting cultures (3) Hyponatremia: Plan: -Sodium at 133 today -Likely due to dehydration and poor oral intake -Follow daily electrolytes after IV fluids (4) Hypothyroidism: Plan: -Unsure if she has been taking any medications at this time -Will follow TSH with free T-4 if needed -Will hold levothyroxine until TSH is back (5) HTN (hypertension): Plan: -Was previously on hydrochlorothiazide, unsure of last dose or last time any medications were refilled -Will hold antihypertensives for now and monitor (6) PSVT (paroxysmal supraventricular tachycardia): Plan: -ECG shows sinus bradycardia today -Patient is asymptomatic -Continue to monitor for now Admission and Anticipated Discharge Date Admission Date: June 09, 2023 Subjective 78 yo female is calm, and has no new complaints. Review of Systems Review of Systems: All systems reviewed & are unremarkable except as noted in HPI & below Physical Exam Physical Exam: General: In no acute distress, stated age, non-toxic appearing HEENT: Normocephalic, atraumatic Chest/Pulm: No respiratory distress, symmetrical chest expansion, clear breath sounds throughout Cardiac: RRR, no murmurs noted Neuro: Alert and oriented to person and town only Psych: No acute distress, pleasantly confused, calm and cooperative during the exam Results & Data Results & Data Vital Signs (Past 12 Hours) Vital Signs Temp Pulse Resp BP BP Pulse Ox O2 Del Method 06/11/23 15:03 36.8 C 65 15 176/89 H 98 Room Air 06/11/23 07:51 36.6 C 50 L 14 192/93 H 99 Room Air PG Care Time/CCT Total # of Minutes Spent Total Time Spent with Patient: Total time spent is greater than 50% in coordination of care (as documented) at patient's floor/unit and/or counseling patient: Coding Level of Care Code 13232 SUB INP/OBS CARE 2/35MIN Diagnoses Altered mental status R41.82 Acute UTI (urinary tract infection) N39.0 Hyponatremia E87.1 Hypothyroidism E03.9 HTN (hypertension) I10 Hypertension type: essential hypertension PSVT (paroxysmal supraventricular tachycardia) I47.1 (5) HTN (hypertension) Hypertension type: essential hypertension Qualified Code(s): I10 - Essential (primary) hypertension
[2023-06-11] MEDS: lisinopril 2.5 MG TAB PO SCH (20:08)
[2023-06-11] MEDS: amLODIPine BESYLATE 5 MG TAB PO SCH (20:08)
[2023-06-12 07:21] LABS: Basophils # (auto) 0.03 K/uL (0-0.2); Basophils % (auto) 0.9 %; Eosinophils # (auto) 0.03 K/uL (0-0.50); Eosinophils % (auto) 0.9 %; Hematocrit (blood only) 36.4 % (37.0-47.0); Hemoglobin 12.2 g/dl (12.0-16.0); Immature Granulocytes # (auto) 0.03 K/uL (0.01-0.20); Immature Granulocytes % (auto) 0.9 %; Lymphocytes # (auto) 1.12 K/uL (1.2-3.4); Lymphocytes % (auto) 32.9 %; Mean Corpuscular Hemoglobin 30.5 pg (25.0-34.0); Mean Corpuscular Hgb Conc 33.5 g/dL (32.0-36.0); Mean Platelet Volume 9.4 fL (9.4-12.4); Monocytes # (auto) 0.48 K/uL (0.11-0.59); Monocytes % (auto) 14.1 %; Neutrophils # (auto) 1.71 K/uL (1.40-6.50); Neutrophils % (auto) 50.3 %; Platelet Count 231 K/uL (130-400); RDW Coefficient of Variation 12.6 % (11.5-14.5); RDW Standard Deviation 41.9 fL (36.4-46.3)
[2023-06-12 07:34] LABS: BUN Creatinine Ratio 25.4 (10-20); Creatinine Clr Calc Pharmacy 50.8 ml/min; Est GFR (African American) 96.2 ml/min; Potassium 4.2 mmol/L (3.5-5.1)
--- NOTE | 2023-06-12 10:25 | Hospitalist Progress Note ---
Date of Service June 12, 2023 Assessment & Plan (1) Altered mental status: Plan: Metabolic encephalopathy -Admit to med/sure -Currently stable -At this time it appears that the patient has baseline dementia which has been getting more severe per family -Her children have been working with delinquency prevention social worker to obtain more care -Cannot rule out possible UTI at this time with her equovical UA -CT head and chest xray without acute findings, no focal neuro defects on exam -obtained TSH, ammonia, medical alcohol level, urine tox screen, thiamine, and folic acid levels -Fall and aspiration precautions -PT/OT/Case management consults placed -continue above treatment, continue to treat possible UTI< awaiting cultures. -SQ heparin for DVT PPX -HH, minced/moist diet -Patient is stable, pending placement. -Awaiting urine cultures (2) Acute UTI (urinary tract infection): Plan: -UA equivocal today -S/P one dose of Ceftriaxone in the ED -Will continue q24H ceftriaxone for a total of 3 days for possible UTI -Awaiting cultures (3) Hyponatremia: Plan: -resolved. -Likely due to dehydration and poor oral intake -Follow daily electrolytes after IV fluids (4) Hypothyroidism: Plan: -Unsure if she has been taking any medications at this time -Will follow TSH with free T-4 if needed -Will hold levothyroxine until TSH is back (5) HTN (hypertension): Plan: -Was previously on hydrochlorothiazide, unsure of last dose or last time any medications were refilled -Will hold antihypertensives for now and monitor (6) PSVT (paroxysmal supraventricular tachycardia): Plan: -ECG shows sinus bradycardia today -Patient is asymptomatic -Continue to monitor for now Admission and Anticipated Discharge Date Admission Date: June 09, 2023 Subjective Patient reports no new symptoms. Review of Systems Review of Systems: All systems reviewed & are unremarkable except as noted in HPI & below Physical Exam Physical Exam: General: In no acute distress, stated age, non-toxic appearing HEENT: Normocephalic, atraumatic Chest/Pulm: No respiratory distress, symmetrical chest expansion, clear breath sounds throughout Cardiac: RRR, no murmurs noted Neuro: Alert and oriented to person and town only Psych: No acute distress, pleasantly confused, calm and cooperative during the exam Results & Data Results & Data Vital Signs (Past 12 Hours) Vital Signs Temp Pulse Resp BP Pulse Ox O2 Del Method 06/12/23 07:17 36.6 C 53 L 14 140/69 98 Room Air PG Care Time/CCT Total # of Minutes Spent Total Time Spent with Patient: Total time spent is greater than 50% in coordination of care (as documented) at patient's floor/unit and/or counseling patient: Coding Level of Care Code 73894 SUB INP/OBS CARE 2/35MIN Diagnoses Altered mental status R41.82 Acute UTI (urinary tract infection) N39.0 Hyponatremia E87.1 Hypothyroidism E03.9 HTN (hypertension) I10 Hypertension type: essential hypertension PSVT (paroxysmal supraventricular tachycardia) I47.1 (5) HTN (hypertension) Hypertension type: essential hypertension Qualified Code(s): I10 - Essential (primary) hypertension
[2023-06-12] MEDS: ENOXAPARIN INJ 40 MG/0.4 ML SYR SQ SCH (15:49)
[2023-06-12] MEDS: lisinopril 2.5 MG TAB PO SCH (22:13)
[2023-06-12] MEDS: amLODIPine BESYLATE 5 MG TAB PO SCH (22:13)
--- NOTE | 2023-06-13 14:16 | Discharge Summary ---
Date of Service June 13, 2023 Admission HPI Per Admitting Provider Kolton is an 78 year old female with a PMH significant for HTN, PSVT, insomnia, hoarding disorder, aortic valve sclerosis, migraines, hypothyroidism, and syncope who presented to the [facility] ED via EMS on 06/09 after being found wandering the halls, confused, by her Neighbor. In the ED the patient was noted to he hypertensive at 177/92 but otherwise stable. Labs were significant for a glucose of 94, sodium of 133, and UA with trace leukocyte esterase, negative nitrites, >30 epithelial cells, and 4+ bacteria. CT of the head was read as "No acute intracranial abnormality. Atrophy and microvascular ischemic changes.". C hest xray was read as "No significant change compared to the prior study. No acute process.". Prior to admission the patient was given one dose of ceftriaxone. We were asked to admit the patient as she lives alone and is not safe to return home at this time. At the time of the exam the patient was sitting in bed in not acute distress. History was limited due to the patient's current mental status. The patient knows who she is and that we are in [place] but is otherwise confused. She denies any complaints at this time and is unaware why she was taken to the ED this morning. She denies any pain or other complaints. I was able to get in touch with the Patient's daughter, Deloris Elizabeth ([phone]) who was able to provide additional history. Deloris explains that the patient has dementia, which has been getting progressively worse over the past few months. The patient's son's were recently visiting her and went back home yesterday. The patient's children are working with neonatal social worker to obtain more care for their mother as she cannot take care of herself anymore. Her daughter denies the patient having a significant history of alcohol or drug abuse. Her daughter is unsure of what medications she may have been taking recently. For now they would like her to be a Full Code and will continue to discuss her code status moving forward. Principal Diagnosis Metabolic encephalopathy Discharge Exam General: In no acute distress, stated age, non-toxic appearing HEENT: Normocephalic, atraumatic Chest/Pulm: No respiratory distress, symmetrical chest expansion, clear breath sounds throughout Cardiac: RRR, no murmurs noted Neuro: Alert and oriented to person and town only Psych: No acute distress, pleasantly confused, calm and cooperative during the exam Discharge Data Allergies Allergy/AdvReac Type Severity Reaction Status Date / Time Penicillins Allergy Mild RASH Verified 12/02/21 13:11 Sulfa (Sulfonamide Allergy Mild RASH Verified 12/02/21 13:11 Antibiotics) alendronate sodium Allergy Unknown CAN'T Verified 12/02/21 13:11 [From Fosamax] REMEMBER Consultations 06/09/23 11:37 ED Decision to Admit Stat Ordered Studies 06/09/23 10:17 CT head/brain wo con Stat Hospital Course (1) Altered mental status: Metabolic encephalopathy -Admit to med/sure -Currently stable -At this time it appears that the patient has baseline dementia which has been getting more severe per family -Her children have been working with neonatal social worker to obtain more care -Cannot rule out possible UTI at this time with her equovical UA -CT head and chest xray without acute findings, no focal neuro defects on exam -obtained TSH, ammonia, medical alcohol level, urine tox screen, thiamine, and folic acid levels -Fall and aspiration precautions -PT/OT/Case management consults placed -continue above treatment, continue to treat possible UTI. Treated for 3 days -SQ heparin for DVT PPX -HH, minced/moist diet -Patient is stable,. Updated family. Aggree that this is baseline dementia. (2) Acute UTI (urinary tract infection): -UA equivocal today -S/P one dose of Ceftriaxone in the ED -completed 3 days of ceftriaxone. (3) Hyponatremia: -resolved. -Likely due to dehydration and poor oral intake (4) Hypothyroidism: -Unsure if she has been taking any medications at this time (5) HTN (hypertension): -Was previously on hydrochlorothiazide, unsure of last dose or last time any medications were refilled -transitioned to lisinopril. (6) PSVT (paroxysmal supraventricular tachycardia): -ECG shows sinus bradycardia today -Patient is asymptomatic -Continue to monitor for now Total Time Total Time Spent Total Time Spent (In Minutes): 32 Discharge Plan Discharge Items Patient Disposition: Transfer [facility] Fac Reason For Visit: AMS Discharge Diagnosis: delirium Activity: Resume your previous activity Non-emergency contact: Primary Care Provider Call non-emergency contact if: you have any medication questions Follow-up/Referrals: PCP,NO [Primary Care Provider] - Diet: Heart Healthy Diet Texture: Dental soft (bite-sized) Diet Comment: minced and moist Addtl Attending Provider Instructions: Appears to be worsening dementia. Pending Studies at Discharge: No Stand-Alone Forms: My [facility] [employer] Skilled Items Patient informed of condition?: Yes DNR: No Discharge Level of Care: Skilled Communicable Disease: No Discharge Prognosis: Stable Lines: None Urinary Catheter: No Medications and DC Order Prescriptions: New amlodipine [Norvasc] 5 mg Tablet 2.5 mg PO PM Qty: 30 0RF lisinopril 2.5 mg Tablet 2.5 mg PO PM Qty: 30 0RF Continued levothyroxine 25 mcg tablet 25 mcg PO DAILY Qty: 14 0RF pantoprazole 20 mg tablet,delayed release (DR/EC) 20 mg PO QAM Qty: 90 3RF calcium carbonate-vitamin D3 600 mg calcium- 200 unit capsule 1 cap PO QAM multivitamin tablet 1 tab PO QAM cholecalciferol (vitamin D3) [Vitamin D3] 1,000 unit capsule 1,000 units PO QAM loratadine 10 mg capsule 10 mg PO DAILY PRN (Reason: allergy symptoms) Saccharomyces boulardii [Florastor] 250 mg capsule 250 mg PO BID Qty: 20 0RF Rx Instructions: swallow whole famotidine 20 mg tablet 20 mg PO BID Qty: 20 0RF rizatriptan [Maxalt] 10 mg tablet 10 mg PO DIRECTED PRN (Reason: Migraine Headache) Discontinued potassium chloride 10 mEq capsule, extended release 10 meq PO QAM Qty: 90 3RF propranolol 60 mg capsule,extended release 24 hr 60 mg PO QAM hydrochlorothiazide 12.5 mg tablet 12.5 mg PO QAM Discharge Orders: Discharge Order (Routine); Ordered 06/13/23 Ordered By: Tereso Nath/Other Patient Handouts: Urinary Tract Infections in Women Admission Data Admit Date/Time: 06/09/23 11:50 Attending Provider: Tereso Montelongo Admit Provider: Michele Dawn Primary Care Provider: PCP,NO Other Providers: Michele Dawn ; [facility], Other Interventions: Discharge Summary Assessment (RN) Last Done: 06/13/23 14:31 Coding Level of Care Code 84165 INP/OBS DISCH >30 MIN Diagnoses Altered mental status R41.82 Acute UTI (urinary tract infection) N39.0 Hyponatremia E87.1 Hypothyroidism E03.9 HTN (hypertension) I10 Hypertension type: essential hypertension PSVT (paroxysmal supraventricular tachycardia) I47.1
== END 2023-06-13 15:01 | DRG 689 ==
LOC: ED 09:57 → 3N 11:50 → SUATTDRO 11:50 → 3N 13:46

== ENCOUNTER 2023-12-10 09:55 | Inpatient (IN) ==
[2023-12-10] MEDS ORDERED: SODIUM CHLORIDE 0.9% 500 ML IV STA (10:01)
[2023-12-10] MEDS ORDERED: fentaNYL citrate PF 100 MCG/2 ML VIAL IV PRN (10:01)
[2023-12-10] MEDS ORDERED: ONDANSETRON INJ 2 MG/ML 2 ML VIAL IV STA (10:01)
--- NOTE | 2023-12-10 10:17 | Emergency Department Note ---
Impression & Plan Syncope, Closed fracture of left hip ED Provider Note NAME: MOIRA IRENE AGE: 78 SEX: F : 1945 ARRIVES VIA: Ambulance INFORMANT: Patient, EMS personnel ED PROVIDER(S): Ant Lambert DO CHIEF COMPLAINT: Syncope HPI: The patient is an 78-year-old female who resides at a personal-long term who presented to the emergency department for an evaluation after having a syncopal episode. The patient was witnessed having a syncopal episode by the staff. Reportedly she became very diaphoretic. She fell from standing position. When she awoke she was unable to stand. When the prehospital personnel arrived they found the patient to still be diaphoretic. There was no dysrhythmia reported. The patient does have a history of syncope in the past. The patient's been compliant with her outpatient medications. The patient may have struck her head according to the prehospital personnel. There is no reported seizure. ROS: See above HPI for pertinent positives & negatives. A total of 10 systems reviewed and were otherwise negative. PAST MEDICAL HISTORY: See Below PAST SURGICAL HISTORY: See Below FAMILY HISTORY: See Below SOCIAL HISTORY: See Below HOME MEDICATIONS: See Below ALLERGIES: See Below VITALS: See Below PHYSICAL EXAMINATION: GENERAL: The patient is awake and alert. She appears somewhat anxious appearing uncomfortable. EYES: The conjunctivae are clear. The pupils are round and reactive. EARS, NOSE, MOUTH AND THROAT: The nose is without any evidence of any deformity. NECK: The neck is nontender and supple. RESPIRATORY: Normal respiratory effort is noted there is no evidence of wheezing rhonchi or rales CARDIOVASCULAR: Regular rate and rhythm noted there no murmurs rubs or gallops normal S1 normal S2. GASTROINTESTINAL: The abdomen is soft. Abdomen is nontender. BACK: No midline tenderness or or step-off noted range of motion in flexion extension as well as rotation no signs of muscle spasm noted MUSCULOSKELETAL/EXTREMITIES: There is pain with palpation over the left knee. There is no obvious deformity of left knee. There was some shortening and external rotation of the left hip. SKIN: There is no obvious evidence of any rash. There are no petechiae, pallor or cyanosis noted. NEUROLOGIC: Patient is awake alert and oriented to person and place but not time. Strength was symmetric but diminished. MEDICAL DECISION MAKING: The patient is an 78-year-old female who presented to the emergency department for an evaluation of leg pain. The patient had a syncopal episode and fell landing on her left side. The patient's history and physical exam appear to be consistent with hip fracture. I discussed the patient's laboratory and radiographic studies with her. X-ray does appear to be consistent with a left hip fracture. [facility] They will evaluate the patient in the emergency department for further management and disposition. The patient was treated with IV pain medication. The patient was significantly improved on reevaluation. Triage Nursing notes reviewed. Prior medical records reviewed Vital Signs: reviewed and remarkable for hypertension. Differential diagnosis: Vasovagal event, dehydration, infection, hypoglycemia, electrolyte abnormalities, cardiac sources, intracerebral event, pulmonary embolism, seizure, toxicologic, neurologic, as well as other pathologies. ER treatment provided: See below Diagnostics interpreted by me: ECG: EKG was obtained in the emergency department. My interpretation is sinus bradycardia 59 bpm. There was no ectopy. There is no acute ST segment abnormalities noted. This was compared to a tracing from June 09, 2023. No changes were noted. Cardiac Monitoring: An order was placed for continuous cardiac monitoring. The monitor shows a rate of 63 bpm with sinus rhythm. Laboratory studies: As stated above and show below. Imaging studies: See below. Radiographic imaging was reviewed by myself Consultation(s): Dr. Dawn was on for the [facility] hospitalist group was notified about the patient. Past Med/Surg History Medical History Hoarding disorder PSVT (paroxysmal supraventricular tachycardia) Migraine, unspecified, not intractable, without status migrainosus Hyperlipidemia Gassiness Fatigue Esophageal reflux Elevated BP without diagnosis of hypertension Syncope Intracranial bleed Head trauma Scalp laceration Osteoporosis HTN (hypertension) Chronic headaches Surgical History History of tonsillectomy and adenoidectomy History of wisdom tooth extraction H/O: hysterectomy Family History Father Skin cancer Unknown Prostate cancer Alzheimer disease Heart disease Brother Testicular cancer Grandmother (Paternal) Stroke syndrome Denies family history of Ovarian cancer Myocardial infarction Breast cancer Colorectal cancer Social History Smoking Status: Unknown if ever smoked Second Hand Exposure: No; Do You Dip or Chew Tobacco: No; Hx Alcohol Use: Yes Alcohol type: wine Alcohol Intake Frequency: Monthly or Less Hx Substance Use: No Preferred Language: [place] Islander Communication Ability: Effective Visual Impairment: Limited Hearing Ability: Normal 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 marital status: Single Current Living Situation: Alone current occupational status: retired How many Children do You have: 3 Feels Safe at Home: Yes Childhood Exposure to Second-Hand Smoke: Yes caffeine: No Dental Care, Regularly: Yes Physical Activity Frequency: Daily Seatbelt Use: always Sunscreen Use: Yes Assistive Devices: Walker Allergies Allergies Allergy/AdvReac Type Severity Reaction Status Date / Time Penicillins Allergy Mild RASH Verified 12/02/21 13:11 Sulfa (Sulfonamide Allergy Mild RASH Verified 12/02/21 13:11 Antibiotics) alendronate sodium Allergy Unknown CAN'T Verified 12/02/21 13:11 [From Fosamax] REMEMBER Home Meds Home Medications Medication Instructions Recorded Confirmed calcium carbonate 600 mg-vitamin 1 cap PO QAM 06/05/19 12/02/21 D3 5 mcg (200 unit) capsule cholecalciferol (vitamin D3) 25 1,000 units PO QAM 06/05/19 12/02/21 mcg (1,000 unit) capsule (Vitamin D3) multivitamin 1 tab PO QAM 06/05/19 12/02/21 loratadine 10 mg capsule 10 mg PO DAILY PRN allergy symptoms 08/04/20 12/02/21 rizatriptan 10 mg tablet (Maxalt) 10 mg PO DIRECTED PRN Migraine 06/02/21 12/02/21 Headache Previous Rx's Medication Instructions Recorded Saccharomyces boulardii 250 mg 250 mg PO BID #20 caps 10/23/20 capsule (Florastor) famotidine 20 mg tablet 20 mg PO BID #20 tabs 10/23/20 levothyroxine 25 mcg tablet 25 mcg PO DAILY #14 tabs 07/09/21 pantoprazole 20 mg tablet,delayed 20 mg PO QAM #90 tabs 07/29/21 release amlodipine 5 mg tablet (Norvasc) 2.5 mg (1/2 x 5 mg) PO PM #30 tabs 06/13/23 lisinopril 2.5 mg tablet 2.5 mg PO PM #30 tabs 06/13/23 Results & Data (ED) Vital Signs Vital Signs - 24 hr 12/10/23 10:22 12/10/23 10:47 Temperature 36.4 C L Temperature Source Oral Pulse Rate 60 63 Respiratory Rate 20 Respiratory Effort / Characteristics Non-Labored Spontaneous Respiratory Depth Normal Respiratory Pattern Regular Blood Pressure 182/93 H Blood Pressure Mean 122 Pulse Oximetry 95 Oxygen Delivery Method Room Air Sepsis Recent Fever Within 48 Hours No Sepsis New/Unexplained Change in Mental Status N/A Sepsis Action Taken by Nursing No Action Required Home Medications Current Medication List: was personally reviewed by me Laboratory Data Attestation: I reviewed the patient's lab results. 12/10/23 11:00 12/10/23 11:00 Lab Results 12/10/23 Range/Units 11:00 WBC 10.50 (4.8-10.8) K/ul RBC 4.39 (4.20-5.40) M/uL Hgb 13.1 (12.0-16.0) g/dl Hct 38.9 (37.0-47.0) % MCV 88.6 (80.0-100.0) fL MCH 29.8 (25.0-34.0) pg MCHC 33.7 (32.0-36.0) g/dL RDW Std Deviation 42.0 (36.4-46.3) fL RDW Coeff of Mariella 12.9 (11.5-14.5) % Plt Count 255 (130-400) K/uL MPV 9.3 L (9.4-12.4) fL Immature Gran % (Auto) 0.7 % Neut % (Auto) 81.2 % Lymph % (Auto) 11.5 % [place] % (Auto) 5.9 % Eos % (Auto) 0.4 % Baso % (Auto) 0.3 % Neut # (Auto) 8.53 H (1.40-6.50) K/uL Lymph # (Auto) 1.21 (1.20-3.40) K/uL [place] # (Auto) 0.62 H (0.11-0.59) K/uL Eos # (Auto) 0.04 (0.00-0.50) K/uL Baso # (Auto) 0.03 (0.00-0.20) K/uL Immature Gran # (Auto) 0.07 (0.01-0.20) K/uL Administered Medications Fentanyl Citrate (Fentanyl Citrate Pf 100 Mcg/2 Ml Vial) 25 mcg IV Q15M PRN PRN Reason: Pain Stop: 12/24/23 10:00 Last Admin: 12/10/23 11:05 Dose: 25 mcg Documented By: NDW Discontinued Medications Sodium Chloride (Nss) 500 mls @ 999 mls/hr IV .Q31M STA Stop: 12/10/23 10:31 Last Admin: 12/10/23 11:05 Dose: 999 mls/hr Documented By: TINAW Ondansetron HCl (Ondansetron Inj 2 Mg/Ml 2 Ml Vial) 4 mg IV NOW STA Stop: 12/10/23 10:02 Last Admin: 12/10/23 11:05 Dose: 4 mg Documented By: LIN Imaging Data Attestation: I personally reviewed and interpreted this imaging study as follows: My Impression: X-ray of the left hip and pelvis was obtained in the emergency department. My interpretation is left hip fracture, final report below. CT the brain was obtained in the emergency department. My interpretation is no intracranial hemorrhage or mass effect, final report below. 1 view chest x-ray was obtained in the emergency department. My interpretation is no free air or definite infiltrate, final report below. Radiologist's Impression: Cervical Spine CT 12/10/23 10:01 CT cervical spine wo con CLINICAL HISTORY: fall TECHNIQUE: Multidetector row helical CT of the cervical spine was performed without administration of intravenous contrast. Coronal and sagittal reformations were obtained. Automated dose lowering techniques and/or adjustment according to patient size were utilized for this exam. Comparison: Comparison is made to CT cervical spine 08/04/2019 FINDINGS: No acute fractures or subluxations are identified. Degenerative changes are seen in the visualized spine. The alignment is normal. Soft tissues are unremarkable. IMPRESSION: Degenerative changes without evidence of acute bony injury. ACT 112: Negative or not required by law. Electronically signed by: Aki Garcia M.D. 12/10/2023 11:05 AM Chest X-Ray 12/10/23 10:01 XR chest 1V portable CLINICAL HISTORY: Chest pain, nonspecific TECHNIQUE: Single frontal radiograph of the chest was obtained. Comparison: None available at the time of this dictation. FINDINGS: No lines and tubes are seen. Calcified aortic knob is seen. The lungs are clear. No evidence of pleural effusion or pneumothorax. IMPRESSION: No acute chest disease. ACT 112: Negative or not required by law. Electronically signed by: Aki Garcia M.D. 12/10/2023 11:[address] 12/10/23 10:01 CT head/brain wo con CLINICAL HISTORY: fall Technique: Contiguous axial CT images of the head were acquired from the base of the skull to the vertex without intravenous contrast administration. Images were viewed in brain, subdural and bone windows. Automated dose lowering techniques and/or adjustment according to patient size were utilized for this exam. Comparison: Comparison is made to CT head 06/09/2023 Findings: Areas of decreased attenuation are present in the periventricular and subcortical white matter bilaterally consistent with small vessel ischemic disease. Generalized cerebral atrophy with commensurate enlargement of the ventricles, sulci, and cisterns is also present. There is no acute intracranial hemorrhage or evidence of acute territorial infarction. No shift of the midline structures, mass effect, or extra-axial abnormalities are shown. Atherosclerotic calcifications are present in the intracranial segments of the internal carotid arteries. Imaged portions of the paranasal sinuses and mastoid air cells are clear. The orbits appear normal. There are no acute fractures of the calvaria or scalp swelling. Impression: No acute intracranial hemorrhage, no evidence of acute territorial infarction or other acute intracranial disease process. ACT 112: Negative or not required by law. Electronically signed by: Aki Garcia M.D. 12/10/2023 10:53 AM Hip/Pelvis X-Ray 12/10/23 10:01 XR hip LT 2V w pelvis CLINICAL HISTORY: fall TECHNIQUE: 2 views of the left hip and single frontal view of the pelvis were obtained. Comparison: Comparison is made to pelvis radiograph 08/04/2019 FINDINGS: Transcervical fracture of the left femoral neck is noted. Joint spaces are well- preserved. No soft tissue abnormality is seen. IMPRESSION: Transcervical left femoral neck fracture. ACT 112: Negative or not required by law. Electronically signed by: Aki Garcia M.D. 12/10/2023 11:06 AM Knee X-Ray 12/10/23 10:01 XR knee LT 1 or 2V routine CLINICAL HISTORY: fall TECHNIQUE: 2 views of the left knee were obtained. Comparison: Comparison is made to left knee radiographs 08/04/2019 FINDINGS: There is no evidence of an acute fracture. Degenerative changes are seen in the knee joint. No joint effusion is seen. No soft tissue abnormality is seen. IMPRESSION: Degenerative changes without evidence of acute injury. ACT 112: Negative or not required by law. Electronically signed by: Aki Garcia M.D. 12/10/2023 11:12 AM Discharge Plan Visit Data Chief Complaint: Fall ED Provider: Ant Lambert Discharge Problem: Syncope, Closed fracture of left hip Patient Disposition: Being Evaluated by Hospitalist Forms Stand Alone Forms: My [facility] Prescriptions Prescriptions: No Action levothyroxine 25 mcg tablet 25 mcg PO DAILY Qty: 14 0RF pantoprazole 20 mg tablet,delayed release (DR/EC) 20 mg PO QAM Qty: 90 3RF calcium carbonate-vitamin D3 600 mg calcium- 200 unit capsule 1 cap PO QAM multivitamin tablet 1 tab PO QAM cholecalciferol (vitamin D3) [Vitamin D3] 1,000 unit capsule 1,000 units PO QAM loratadine 10 mg capsule 10 mg PO DAILY PRN (Reason: allergy symptoms) Saccharomyces boulardii [Florastor] 250 mg capsule 250 mg PO BID Qty: 20 0RF Rx Instructions: swallow whole famotidine 20 mg tablet 20 mg PO BID Qty: 20 0RF amlodipine [Norvasc] 5 mg Tablet 2.5 mg PO PM Qty: 30 0RF lisinopril 2.5 mg Tablet 2.5 mg PO PM Qty: 30 0RF rizatriptan [Maxalt] 10 mg tablet 10 mg PO DIRECTED PRN (Reason: Migraine Headache) Referrals Referrals: Twila Neal [Primary Care Provider] - Discharge Problem: Syncope Qualifiers: Syncope type: unspecified Qualified Code(s): R55 - Syncope and collapse Closed fracture of left hip Qualifiers: Encounter type: initial encounter Qualified Code(s): S72.002A - Fracture of unspecified part of neck of left femur, initial encounter for closed fracture
--- NOTE | 2023-12-10 10:55 | CT Scan Report ---
CT head/brain wo con CLINICAL HISTORY: fall Technique: Contiguous axial CT images of the head were acquired from the base of the skull to the oleksandr jeanna without intravenous contrast administration. Images were viewed in brain, subdural and [facility]. Automated dose lowering techniques and/or adjustment according to patient size were utilized for this exam. Comparison: Comparison is made to CT head 06/09/2023 Findings: Areas of decreased attenuation are present in the periventricular and subcortical white matter bilate rally consistent with small vessel ischemic disease. Generalized cerebral atrophy with commensurate e nlargement of the ventricles, sulci, and cisterns is also present. There is no acute intracranial hem orrhage or evidence of acute territorial infarction. No shift of the midline structures, mass effect, or extra-axial abnormalities are shown. Atherosclerotic calcifications are present in the intracran ial segments of the internal carotid arteries. Imaged portions of the paranasal sinuses and mastoid air cells are clear. The orbits appear normal. There are no acute fractures of the calvaria or scalp swelling. Impression: No acute intracranial hemorrhage, no evidence of acute territorial infarction or other acute intracra nial disease process. ACT 112: Negative or not required by law. Electronically signed by: Aki Garcia M.D. 12/10/2023 10:53 AM
--- NOTE | 2023-12-10 11:07 | XRay Report ---
XR hip LT 2V w pelvis CLINICAL HISTORY: fall TECHNIQUE: 2 views of the left hip and single frontal view of the pelvis were obtained. Comparison: Comparison is made to pelvis radiograph 08/04/2019 FINDINGS: Transcervical fracture of the left femoral neck is noted. Joint spaces are well-preserved. No soft ti ssue abnormality is seen. IMPRESSION: Transcervical left femoral neck fracture. ACT 112: Negative or not required by law. Electronically signed by: Aki Garcia M.D. 12/10/2023 11:06 AM
--- NOTE | 2023-12-10 11:07 | CT Scan Report ---
CT cervical spine wo con CLINICAL HISTORY: fall TECHNIQUE: Multidetector row helical CT of the cervical spine was performed without administration of intravenous contrast. Coronal and sagittal reformations were obtained. Automated dose lowering techn iques and/or adjustment according to patient size were utilized for this exam. Comparison: Comparison is made to CT cervical spine 08/04/2019 FINDINGS: No acute fractures or subluxations are identified. Degenerative changes are seen in the visualized sp ine. The alignment is normal. Soft tissues are unremarkable. IMPRESSION: Degenerative changes without evidence of acute bony injury. ACT 112: Negative or not required by law. Electronically signed by: Aki Garcia M.D. 12/10/2023 11:05 AM
--- NOTE | 2023-12-10 11:12 | History & Physical Report ---
Date of Service December 10, 2023 Assessment & Plan (1) Closed fracture of left hip: Plan: Acetaminophen 1g PO TID Morphine 1 to 2 mg q.3 hourly PRN for breakthrough pain Durham catheter placed N.p.o. after midnight Consult orthopedics (2) Acute UTI (urinary tract infection): Plan: Difficult to rule out given lack of history and need for operation will elect to treat Ceftriaxone 1 g daily Follow-up urine culture (3) Osteoporosis: Plan: Noted history of this overnight DEXA scan in electronic health record (4) Osteoporotic fracture of left hip: (5) HTN (hypertension): Plan: Due to concern for syncopal episode we will hold blood pressure medication Plan VTE prophylaxis - deferred preoperatively Diet - regular, easy to chew if passes dysphagia screen, n.p.o. after midnight Disposition - admit to med/tele Admission and Anticipated Discharge Date Admission Date: December 10, 2023 History of Present Illness Chief Complaint: Syncope Primary Care Provider: kike Val Elizabeth is an 78-year-old female who presents to the ER after a syncopal fall. Unable to get any history from patient due to underlying dementia. Unable to get any history from [facility] as no-one picked up the phone. Unable to get any history from patient's son - voicemail left. Allergies Allergy/AdvReac Type Severity Reaction Status Date / Time Penicillins Allergy Mild RASH Verified 12/10/23 14:33 Sulfa (Sulfonamide Allergy Mild RASH Verified 12/10/23 14:33 Antibiotics) alendronate sodium Allergy Unknown CAN'T Verified 12/10/23 14:33 [From Fosamax] REMEMBER Home Medications Medication Instructions Recorded Confirmed Type cholecalciferol (vitamin D3) 25 1,000 units PO QAM 06/05/19 12/10/23 History mcg (1,000 unit) capsule (Vitamin D3) multivitamin 1 tab PO QAM 06/05/19 12/10/23 History loratadine 10 mg capsule 10 mg PO DAILY PRN allergy symptoms 08/04/20 12/10/23 History Saccharomyces boulardii 250 mg 250 mg PO BID #20 caps 10/23/20 12/10/23 Rx capsule (Florastor) famotidine 20 mg tablet 20 mg PO BID #20 tabs 10/23/20 12/10/23 Rx rizatriptan 10 mg tablet (Maxalt) 10 mg PO DIRECTED PRN Migraine 06/02/21 12/10/23 History Headache levothyroxine 25 mcg tablet 25 mcg PO DAILY #14 tabs 07/09/21 12/10/23 Rx pantoprazole 20 mg tablet,delayed 20 mg PO QAM #90 tabs 07/29/21 12/10/23 Rx release acetaminophen 325 mg tablet 650 mg PO Q6H PRN PAIN/FEVER 12/10/23 12/10/23 History amlodipine 2.5 mg tablet 2.5 mg PO DAILY 12/10/23 12/10/23 History bisacodyl 10 mg rectal suppository 10 mg [place] DAILY PRN Constipation 12/10/23 12/10/23 History (Dulcolax (bisacodyl)) calcium carbonate 500 mg-vitamin 1 tab PO DAILY 12/10/23 12/10/23 History D3 5 mcg (200 unit) tablet (Oyster Shell Calcium-Vitamin D3) lisinopril 2.5 mg tablet 2.5 mg PO DAILY 12/10/23 12/10/23 History magnesium hydroxide 400 mg/5 mL 2,400 mg PO DAILY PRN Constipation 12/10/23 12/10/23 History oral suspension (Milk of Magnesia) sodium phosphates 19 gram-7 118 ml [place] DAILY PRN Constipation 12/10/23 12/10/23 History gram/118 mL enema (Enema) triamcinolone acetonide 0.1 % 1 applic topical TID rash 12/10/23 12/10/23 History topical cream Past Med/Surg History Medical History Hoarding disorder PSVT (paroxysmal supraventricular tachycardia) Migraine, unspecified, not intractable, without status migrainosus Hyperlipidemia Gassiness Fatigue Esophageal reflux Elevated BP without diagnosis of hypertension Syncope Intracranial bleed Head trauma Scalp laceration Osteoporosis HTN (hypertension) Chronic headaches Surgical History History of tonsillectomy and adenoidectomy History of wisdom tooth extraction H/O: hysterectomy Family History Father Skin cancer Unknown Prostate cancer Alzheimer disease Heart disease Brother Testicular cancer Grandmother (Paternal) Stroke syndrome Denies family history of Ovarian cancer Myocardial infarction Breast cancer Colorectal cancer Social History Smoking Status: Unknown if ever smoked Second Hand Exposure: No; Do You Dip or Chew Tobacco: No; Tobacco Cessation Education Requested by Patient: No Hx Alcohol Use: No Hx Substance Use: No Preferred Language: Wallisian Communication Ability: Effective Visual Impairment: Limited Hearing Ability: Normal Conditioning Room Worker Required: No Beliefs That Will Affect Care: None marital status: Single Current Living Situation: [facility]it[facility]iary current occupational status: retired How many Children do You have: 3 Other Information That Helps Us Care for You: No Feels Safe at Home: Yes Safety Concerns: Feels Safe At This Time Childhood Exposure to Second-Hand Smoke: Yes caffeine: No Dental Care, Regularly: Yes Physical Activity Frequency: Daily Seatbelt Use: always Sunscreen Use: Yes Assistive Devices: Wheelchair Review of Systems Review of Systems: All systems reviewed & are unremarkable except as noted in HPI & below Physical Exam Constitutional: well developed; + not well nourished and no acute distress ENMT: external ear and nose normal, oropharynx normal Respiratory: normal respiratory effort, lungs clear to auscultation Cardiovascular: RRR, no murmur, no edema Gastrointestinal (Abdomen): normal bowel sounds, soft, nontender, no hepatosplenomegaly Musculoskeletal: Left leg shortened externally rotated, PT, DP pulses intact Skin: no rashes, warm and dry Neurologic: awake; + does not move all extremities (no movement of lower extremities) and not confused Psychiatric: Orientation: alert and oriented to person; + not oriented to place and + not oriented to time Genitourinary: no CVA tenderness Results & Data Results & Data Vital Signs (Past 12 Hours) Vital Signs Temp Pulse Resp BP Pulse Ox O2 Del Method 12/10/23 10:47 36.4 C L 63 20 182/93 H 95 Room Air 12/10/23 10:22 60 Laboratory Results Abnormal lab results 12/10/23 12/10/23 Range/Units 11:00 11:42 MPV 9.3 L (9.4-12.4) fL Neut # (Auto) 8.53 H (1.40-6.50) K/uL [place] # (Auto) 0.62 H (0.11-0.59) K/uL Sodium 134 L (136-145) mmol/L BUN/Creatinine Ratio 26.7 H (10-20) Glucose 104 H (70-99(Fasting)) mg/dl Urine Blood Trace-intact H (Negative) Urine Nitrite Positive A (Negative) Ur Leukocyte Esterase 1+ H (Negative) Urine WBC >30 H (0-5) /hpf Urine Bacteria 4+ H (Negative) Diagnostic Findings CT head/brain wo con CLINICAL HISTORY: fall Technique: Contiguous axial CT images of the head were acquired from the base of the skull to the vertex without intravenous contrast administration. Images were viewed in brain, subdural and bone windows. Automated dose lowering techniques and/or adjustment according to patient size were utilized for this exam. Comparison: Comparison is made to CT head 06/09/2023 Findings: Areas of decreased attenuation are present in the periventricular and subcortical white matter bilaterally consistent with small vessel ischemic disease. Generalized cerebral atrophy with commensurate enlargement of the ventricles, sulci, and cisterns is also present. There is no acute intracranial hemorrhage or evidence of acute territorial infarction. No shift of the midline structures, mass effect, or extra-axial abnormalities are shown. Atherosclerotic calcifications are present in the intracranial segments of the internal carotid arteries. Imaged portions of the paranasal sinuses and mastoid air cells are clear. The orbits appear normal. There are no acute fractures of the calvaria or scalp swelling. Impression: No acute intracranial hemorrhage, no evidence of acute territorial infarction or other acute intracranial disease process. CT cervical spine wo con CLINICAL HISTORY: fall TECHNIQUE: Multidetector row helical CT of the cervical spine was performed without administration of intravenous contrast. Coronal and sagittal reformations were obtained. Automated dose lowering techniques and/or adjustment according to patient size were utilized for this exam. Comparison: Comparison is made to CT cervical spine 08/04/2019 FINDINGS: No acute fractures or subluxations are identified. Degenerative changes are seen in the visualized spine. The alignment is normal. Soft tissues are unremarkable. IMPRESSION: Degenerative changes without evidence of acute bony injury. XR chest 1V portable CLINICAL HISTORY: Chest pain, nonspecific TECHNIQUE: Single frontal radiograph of the chest was obtained. Comparison: None available at the time of this dictation. FINDINGS: No lines and tubes are seen. Calcified aortic knob is seen. The lungs are clear. No evidence of pleural effusion or pneumothorax. IMPRESSION: No acute chest disease. XR hip LT 2V w pelvis CLINICAL HISTORY: fall TECHNIQUE: 2 views of the left hip and single frontal view of the pelvis were obtained. Comparison: Comparison is made to pelvis radiograph 08/04/2019 FINDINGS: Transcervical fracture of the left femoral neck is noted. Joint spaces are well- preserved. No soft tissue abnormality is seen. IMPRESSION: Transcervical left femoral neck fracture. XR knee LT 1 or 2V routine CLINICAL HISTORY: fall TECHNIQUE: 2 views of the left knee were obtained. Comparison: Comparison is made to left knee radiographs 08/04/2019 FINDINGS: There is no evidence of an acute fracture. Degenerative changes are seen in the knee joint. No joint effusion is seen. No soft tissue abnormality is seen. IMPRESSION: Degenerative changes without evidence of acute injury. Medications Administered ER medications given: Normal saline 500 mL bolus Ondansetron 4 mg IV Code Status & VTE Plan Code Status Full per POLST VTE Prophylaxis Plan VTE Prophylaxis will be ordered: No PG Care Time/CCT Total # of Minutes Spent Total Time Spent with Patient: Total time spent is greater than 50% in coordination of care (as documented) at patient's floor/unit and/or counseling patient: Coding Level of Care Code 79085 INT INP/OBS CARE 2MIN Diagnoses Closed fracture of left hip S72.002A Encounter type: initial encounter Acute UTI (urinary tract infection) N39.0 Osteoporosis M81.0 Osteoporotic fracture of left hip M80.052A Essential hypertension I10 Hypertension type: essential hypertension (1) Closed fracture of left hip Encounter type: initial encounter Qualified Code(s): S72.002A - Fracture of unspecified part of neck of left femur, initial encounter for closed fracture (5) HTN (hypertension) Hypertension type: essential hypertension Qualified Code(s): I10 - Essential (primary) hypertension
--- NOTE | 2023-12-10 11:12 | XRay Report ---
XR chest 1V portable CLINICAL HISTORY: Chest pain, nonspecific TECHNIQUE: Single frontal radiograph of the chest was obtained. Comparison: None available at the time of this dictation. FINDINGS: No lines and tubes are seen. Calcified aortic knob is seen. The lungs are clear. No evidence of pleur al effusion or pneumothorax. IMPRESSION: No acute chest disease. ACT 112: Negative or not required by law. Electronically signed by: Aki Garcia M.D. 12/10/2023 11:09 AM
--- NOTE | 2023-12-10 11:13 | XRay Report ---
XR knee LT 1 or 2V routine CLINICAL HISTORY: fall TECHNIQUE: 2 views of the left knee were obtained. Comparison: Comparison is made to left knee radiographs 08/04/2019 FINDINGS: There is no evidence of an acute fracture. Degenerative changes are seen in the knee joint. No joint effusion is seen. No soft tissue abnormality is seen. IMPRESSION: Degenerative changes without evidence of acute injury. ACT 112: Negative or not required by law. Electronically signed by: Aki Garcia M.D. 12/10/2023 11:12 AM
[2023-12-10 11:15] LABS: Basophils # (auto) 0.03 K/uL (0.00-0.20); Basophils % (auto) 0.3 %; Eosinophils # (auto) 0.04 K/uL (0.00-0.50); Eosinophils % (auto) 0.4 %; Hematocrit (blood only) 38.9 % (37.0-47.0); Hemoglobin 13.1 g/dl (12.0-16.0); Immature Granulocytes # (auto) 0.07 K/uL (0.01-0.20); Immature Granulocytes % (auto) 0.7 %; Lymphocytes # (auto) 1.21 K/uL (1.20-3.40); Lymphocytes % (auto) 11.5 %; Mean Corpuscular Hemoglobin 29.8 pg (25.0-34.0); Mean Corpuscular Hgb Conc 33.7 g/dL (32.0-36.0); Mean Corpuscular Volume 88.6 fL (80.0-100.0); Mean Platelet Volume 9.3 fL (9.4-12.4); Monocytes # (auto) 0.62 K/uL (0.11-0.59); Monocytes % (auto) 5.9 %; Neutrophils # (auto) 8.53 K/uL (1.40-6.50); Neutrophils % (auto) 81.2 %; Platelet Count 255 K/uL (130-400); RDW Coefficient of Variation 12.9 % (11.5-14.5); Red Blood Count 4.39 M/uL (4.20-5.40)
[2023-12-10 11:40] LABS: Albumin Globulin Ratio 1.3 (0.9-2); BUN Creatinine Ratio 26.7 (10-20); Bilirubin,Total 0.6 mg/dl (0.2-1.0); Calcium 9.6 mg/dl (8.6-10.3); Creatinine Clr Calc Pharmacy 46.6 ml/min; Est GFR (African American) 87.3 ml/min; Est GFR (Non-African American) 75.3 ml/min; Globulin 3.1 gm/dl (2.5-4.0); Potassium 3.8 mmol/L (3.5-5.1); Total Protein 7.1 gm/dl (6.0-8.3)
[2023-12-10 11:45] LABS: Partial Thromboplastin Ratio 0.9; Partial Thromboplastin Time 24 Seconds (21-31); Prothrombin Time 10.8 Seconds (9.0-12.0); Troponin I High Sensitivity 2.8 pg/ml (0-14)
[2023-12-10 11:57] LABS: Appearance Urine Slightly Cloudy (Clear); Bilirubin Urine Negative (Negative); Blood Urine Trace-intact (Negative); Color Urine Yellow; Glucose Urine UA Negative (Negative); Ketones Urine Negative (Negative); Leukocyte Esterase Urine 1+ (Negative); Nitrite Urine Positive (Negative); Protein Urine Negative (Negative); Urobilinogen Urine Negative (Negative)
[2023-12-10 12:12] LABS: Epithelial Cell Urine 0-5 /lpf (0-5)
[2023-12-10 12:13] LABS: Bacteria Urine 4+ (Negative); RBC Urine 0-4 /hpf (0-4); WBC Urine >30 /hpf (0-5)
[2023-12-10] MEDS ORDERED: bisacodyL 10 MG SUPP PR PRN (12:33)
[2023-12-10] MEDS ORDERED: cefTRIAXone SODIUM 2,000 MG in DEXTROSE 5 % MINI-B 50 ML IV STA (12:33)
[2023-12-10] MEDS ORDERED: NALOXONE HCL 0.4 MG/1 ML VIAL/CARP IV PRN (12:33)
[2023-12-10] MEDS ORDERED: MAGNESIUM HYDROXIDE SUSP 30 ML UDC PO PRN (12:33)
[2023-12-10] MEDS: ACETAMINOPHEN 500 MG TAB PO SCH ×2 (13:44→20:19)
[2023-12-10] MEDS ORDERED: MoRPHine SULFATE 2 MG/ML CARP IV PRN (15:23)
--- NOTE | 2023-12-10 15:23 | Anesthesiology Consultation ---
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 Surgery Operation Date: 12/11/23 07:30 Proposed Procedures p Intramedullary Nail Tibia(Left) - Edmund Patrick DO Height/Weight Height: 5 ft Weight: 55 kg Allergies Allergy/AdvReac Type Severity Reaction Status Date / Time Penicillins Allergy Mild RASH Verified 12/10/23 14:33 Sulfa (Sulfonamide Allergy Mild RASH Verified 12/10/23 14:33 Antibiotics) alendronate sodium Allergy Unknown CAN'T Verified 12/10/23 14:33 [From Fosamax] REMEMBER Medications Home Medications Medication Instructions Recorded Confirmed Last Taken cholecalciferol (vitamin D3) 25 1,000 units PO QAM 06/05/19 12/10/23 06/02/21 mcg (1,000 unit) capsule (Vitamin D3) multivitamin 1 tab PO QAM 06/05/19 12/10/23 06/02/21 loratadine 10 mg capsule 10 mg PO DAILY PRN allergy symptoms 08/04/20 12/10/23 Unknown Saccharomyces boulardii 250 mg 250 mg PO BID #20 caps 10/23/20 12/10/23 06/02/21 capsule (Florastor) famotidine 20 mg tablet 20 mg PO BID #20 tabs 10/23/20 12/10/23 06/02/21 rizatriptan 10 mg tablet (Maxalt) 10 mg PO DIRECTED PRN Migraine 06/02/21 12/10/23 Unknown Headache levothyroxine 25 mcg tablet 25 mcg PO DAILY #14 tabs 07/09/21 12/10/23 Unknown pantoprazole 20 mg tablet,delayed 20 mg PO QAM #90 tabs 07/29/21 12/10/23 Unknown release acetaminophen 325 mg tablet 650 mg PO Q6H PRN PAIN/FEVER 12/10/23 12/10/23 Unknown amlodipine 2.5 mg tablet 2.5 mg PO DAILY 12/10/23 12/10/23 Unknown bisacodyl 10 mg rectal suppository 10 mg AK DAILY PRN Constipation 12/10/23 12/10/23 Unknown (Dulcolax (bisacodyl)) calcium carbonate 500 mg-vitamin 1 tab PO DAILY 12/10/23 12/10/23 Unknown D3 5 mcg (200 unit) tablet (Oyster Shell Calcium-Vitamin D3) lisinopril 2.5 mg tablet 2.5 mg PO DAILY 12/10/23 12/10/23 Unknown magnesium hydroxide 400 mg/5 mL 2,400 mg PO DAILY PRN Constipation 12/10/23 12/10/23 Unknown oral suspension (Milk of Magnesia) sodium phosphates 19 gram-7 118 ml AK DAILY PRN Constipation 12/10/23 12/10/23 Unknown gram/118 mL enema (Enema) triamcinolone acetonide 0.1 % 1 applic topical TID rash 12/10/23 12/10/23 Unknown topical cream Active Medications Generic Name Dose Route Start Last Admin Trade Name Freq PRN Reason Stop Dose Admin Acetaminophen 1,000 mg 12/10/23 14:00 12/10/23 13:44 Acetaminophen 500 Mg Tab PO 01/09/24 13:59 1,000 mg TID [id number] Administration Past Medical History Medical History Hoarding disorder PSVT (paroxysmal supraventricular tachycardia) Migraine, unspecified, not intractable, without status migrainosus Hyperlipidemia Gassiness Fatigue Esophageal reflux Elevated BP without diagnosis of hypertension Syncope Intracranial bleed Head trauma Scalp laceration Osteoporosis HTN (hypertension) Chronic headaches Past Family History Family History Father Skin cancer Unknown Prostate cancer Alzheimer disease Heart disease Brother Testicular cancer Grandmother (Paternal) Stroke syndrome Denies family history of Ovarian cancer Myocardial infarction Breast cancer Colorectal cancer Past Surgical History Surgical History History of tonsillectomy and adenoidectomy History of wisdom tooth extraction H/O: hysterectomy Social History Smoking Status: Unknown if ever smoked Do You Dip or Chew Tobacco: No Hx Alcohol Use: No Alcohol type: wine Hx Substance Use: No Physical Exam Vital Signs Last Vital Signs Temp 99.9 F H 12/10/23 14:35 Pulse 64 12/10/23 14:35 Resp 20 12/10/23 14:35 BP 163/71 H 12/10/23 14:35 Pulse Ox 96 12/10/23 14:35 O2 Del Method Room Air 12/10/23 14:35 Testing Laboratory Results 12/10/23 11:00 12/10/23 11:00 PT 10.8 Seconds (9.0-12.0) 12/10/23 11:00 INR 1.0 (0.9-1.1) 12/10/23 11:00 APTT 24 Seconds (21-31) 12/10/23 11:00 Urine Color Yellow 12/10/23 11:42 Urine Appearance Slightly Cloudy (Clear) 12/10/23 11:42 Urine pH 7.0 (4.5-7.5) 12/10/23 11:42 Ur Specific [place] 1.020 (1.000-1.030) 12/10/23 11:42 Urine Protein Negative (Negative) 12/10/23 11:42 Urine Glucose (UA) Negative (Negative) 12/10/23 11:42 Urine Ketones Negative (Negative) 12/10/23 11:42 Urine Nitrite Positive (Negative) A 12/10/23 11:42 Ur Leukocyte Esterase 1+ (Negative) H 12/10/23 11:42 Urine RBC 0-4 /hpf (0-4) 12/10/23 11:42 Urine WBC >30 /hpf (0-5) H 12/10/23 11:42 Ur Epithelial Cells 0-5 /lpf (0-5) 12/10/23 11:42 Electrocardiogram Date: 12/10/23 Findings: + SB @ (59 bpm) Chest X-Ray Date: 12/10/23 Findings: + NAD Echocardiogram Date: 05/19/21 LV systolic function is normal Mild concentric LVH Grade 2 diastolic dysfunction LA is mod dilated Aortic sclerosis without stenosis Mild mitral annular calcification Some views of the aortic arch suggest dilation Mildly dilate IVC
[2023-12-10] MEDS ORDERED: PNEUMOCOCCAL VACCINE (PCV20) 20-VAL CONJ-DIP CRM/PF 0.5 ML SYR IM ONE (16:00)
--- NOTE | 2023-12-10 16:46 | CT Scan Report ---
LEFT HIP CT CT DOSE: 559.07 mGy.cm HISTORY: Left hip fracture TECHNIQUE: Multiaxial CT images of the left were performed and reformatted in the sagittal and phelps l plane without the use of contrast. A dose lowering technique was utilized adhering to the principl es of NIMISHA. COMPARISON: Left hip radiograph 12/10/2023. FINDINGS: There is again noted a comminuted and displaced intertrochanteric fracture the proximal lef t femur. No dislocation of the femoral head. The greater trochanter fracture demonstrates up to 1 cm of posterior displacement. There are old, healed left pubic ring fractures. No acute fractures within the visualized pelvic bones. There is a Durham catheter within the decompressed bladder. Mild pelvic floor collapse. Prior hysterectomy. Thickening within the adductor muscles may represent a small intr amuscular hematoma. The left femoral fracture slightly impacted. IMPRESSION: Mildly displaced and comminuted intertrochanteric fracture of the proximal left femur. ACT 112: Negative or not required by law. Electronically signed by: Fernando Scales M.D. 12/10/2023 4:45 PM
--- NOTE | 2023-12-10 16:52 | Communication Note ---
Date of Service: December 10, 2023 POA Son - Sergio Elizabeth returned call (flying to [place] when called earlier). Aware patient was sent to the hospital. I made him aware of her hip fracture. All questions and concerns answered. Reportedly the patient had a blacking out episode on Nov 24 and another stumble 1 week ago. UTIs not uncommon and usually she doesn't complain of anything. Dr Patrick gain consent from her son tomorrow.
[2023-12-10] MEDS: LACTATED RINGER'S 1,000 ML IV SCH (18:03)
[2023-12-10] MEDS: SACCHAROMYCES BOULARDII 250 MG CAP PO SCH (20:19)
[2023-12-10] MEDS: FAMOTIDINE 20 MG TAB PO SCH (20:19)
[2023-12-10] MEDS: MoRPHine SULFATE 2 MG/ML CARP IV PRN (22:24)
[2023-12-11] MEDS: MoRPHine SULFATE 2 MG/ML CARP IV PRN ×2 (04:54→19:47)
[2023-12-11] MEDS: LEVOTHYROXINE SODIUM 25 MCG TABLET PO SCH (05:00)
[2023-12-11] MEDS ORDERED: LIDOCAINE 2% 2 ML VIAL/AMP(20MG/ML) INFIL ONE (07:17)
[2023-12-11] MEDS ORDERED: PROPOFOL IV EMULSION 10 MG/ML 20 ML VIAL IV ONE (07:17)
[2023-12-11] MEDS ORDERED: ONDANSETRON INJ 2 MG/ML 2 ML VIAL ONE (07:17)
[2023-12-11] MEDS ORDERED: fentaNYL citrate PF 100 MCG/2 ML VIAL ONE (07:17)
--- NOTE | 2023-12-11 07:57 | History & Physical Bridge Note ---
Date of Service December 11, 2023 History & Physical Bridge Note I have examined the patient, reviewed the History & Physical and in the interval since the performance of the History & Physical I have noted the following changes of clinical significance: no changes noted. I spoke with the son via telephone. We do lengthy discussion regarding risk benefits potential complications of left hip cephalomedullary nail for a her left intertrochanteric femur fracture. These include but are not limited to: Infection, neurovascular injury, DVT, nonunion, malunion, hardware failure and need for future surgery. After reviewing these elected to proceed with surgical intervention and telephone consent was obtained.
--- NOTE | 2023-12-11 07:59 | Orthopedic Consultation ---
Date of Consultation December 11, 2023 Assessment & Plan (1) Osteoporotic fracture of left hip: 78-year-old female with displaced left intertrochanteric femur fracture Nonweightbearing left lower extremity Pain control Bedrest Medical management Hold DVT prophylaxis for OR Plan for left hip cephalomedullary nail History of Present Illness Reason for Consultation: Left intertrochanteric femur fracture Attending Physician: Lesley Patel MD History of Present Illness 78-year-old female presenting after sustaining a ground-level fall at her facility. She complains of left hip and groin pain. She is pleasantly demented. In the emergency department radiographs were obtained demonstrating displaced left intertrochanteric femur fracture. Patient was admitted to medical service and orthopedics was consulted for operative management. Allergies Allergy/AdvReac Type Severity Reaction Status Date / Time Penicillins Allergy Mild RASH Verified 12/10/23 14:33 Sulfa (Sulfonamide Allergy Mild RASH Verified 12/10/23 14:33 Antibiotics) alendronate sodium Allergy Unknown CAN'T Verified 12/10/23 14:33 [From Fosamax] REMEMBER Home Medications Medication Instructions Recorded Confirmed Type cholecalciferol (vitamin D3) 25 1,000 units PO QAM 06/05/19 12/10/23 History mcg (1,000 unit) capsule (Vitamin D3) multivitamin 1 tab PO QAM 06/05/19 12/10/23 History loratadine 10 mg capsule 10 mg PO DAILY PRN allergy symptoms 08/04/20 12/10/23 History Saccharomyces boulardii 250 mg 250 mg PO BID #20 caps 10/23/20 12/10/23 Rx capsule (Florastor) famotidine 20 mg tablet 20 mg PO BID #20 tabs 10/23/20 12/10/23 Rx rizatriptan 10 mg tablet (Maxalt) 10 mg PO DIRECTED PRN Migraine 06/02/21 12/10/23 History Headache levothyroxine 25 mcg tablet 25 mcg PO DAILY #14 tabs 07/09/21 12/10/23 Rx pantoprazole 20 mg tablet,delayed 20 mg PO QAM #90 tabs 07/29/21 12/10/23 Rx release acetaminophen 325 mg tablet 650 mg PO Q6H PRN PAIN/FEVER 12/10/23 12/10/23 History amlodipine 2.5 mg tablet 2.5 mg PO DAILY 12/10/23 12/10/23 History bisacodyl 10 mg rectal suppository 10 mg CA DAILY PRN Constipation 12/10/23 12/10/23 History (Dulcolax (bisacodyl)) calcium carbonate 500 mg-vitamin 1 tab PO DAILY 12/10/23 12/10/23 History D3 5 mcg (200 unit) tablet (Oyster Shell Calcium-Vitamin D3) lisinopril 2.5 mg tablet 2.5 mg PO DAILY 12/10/23 12/10/23 History magnesium hydroxide 400 mg/5 mL 2,400 mg PO DAILY PRN Constipation 12/10/23 12/10/23 History oral suspension (Milk of Magnesia) sodium phosphates 19 gram-7 118 ml CA DAILY PRN Constipation 12/10/23 12/10/23 History gram/118 mL enema (Enema) triamcinolone acetonide 0.1 % 1 applic topical TID rash 12/10/23 12/10/23 History topical cream Patient History Medical History Hoarding disorder PSVT (paroxysmal supraventricular tachycardia) Migraine, unspecified, not intractable, without status migrainosus Hyperlipidemia Gassiness Fatigue Esophageal reflux Elevated BP without diagnosis of hypertension Syncope Intracranial bleed Head trauma Scalp laceration Osteoporosis HTN (hypertension) Chronic headaches Surgical History History of tonsillectomy and adenoidectomy History of wisdom tooth extraction H/O: hysterectomy Family History Father Skin cancer Unknown Prostate cancer Alzheimer disease Heart disease Brother Testicular cancer Grandmother (Paternal) Stroke syndrome Denies family history of Ovarian cancer Myocardial infarction Breast cancer Colorectal cancer Social History Smoking Status: Unknown if ever smoked Second Hand Exposure: No; Do You Dip or Chew Tobacco: No; Tobacco Cessation Education Requested by Patient: No Hx Alcohol Use: No Hx Substance Use: No Preferred Language: Serbian Communication Ability: Effective Visual Impairment: Limited Hearing Ability: Normal 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 Beliefs That Will Affect Care: None marital status: Single Current Living Situation: Group Home current occupational status: retired How many Children do You have: 3 Other Information That Helps Us Care for You: No Feels Safe at Home: Yes Safety Concerns: Feels Safe At This Time Childhood Exposure to Second-Hand Smoke: Yes caffeine: No Dental Care, Regularly: Yes Physical Activity Frequency: Daily Seatbelt Use: always Sunscreen Use: Yes Assistive Devices: Wheelchair Physical Exam Constitutional: Resting in bed, oriented to self Musculoskeletal: Left lower extremity Pain with logroll Thigh soft and compressible Neuromuscular exam limited secondary to patient mental status. Palpable dorsalis pedis and posterior tibial pulses with brisk capillary refill Results & Data Vital Signs (Past 12 Hours) Vital Signs Temp Pulse Pulse Resp BP Pulse Ox O2 Del Method 12/11/23 07:51 64 12/11/23 02:34 36.7 C 57 L 18 159/73 H 97 Room Air 12/11/23 02:16 Room Air 12/10/23 22:35 36.9 C 57 L 18 135/73 97 Room Air 12/10/23 22:32 62 Diagnostic Findings Left hip radiographs demonstrate displaced left intertrochanteric femur fracture
[2023-12-11] MEDS ORDERED: INFLUENZA VACCINE HIGH-DOSE (HD-IIV4) PF 65+ 0.7mL SYR IM ONE (08:38)
[2023-12-11] MEDS ORDERED: ONDANSETRON INJ 2 MG/ML 2 ML VIAL IV PRN (08:41)
[2023-12-11] MEDS ORDERED: fentaNYL citrate PF 100 MCG/2 ML VIAL IV PRN (08:41)
[2023-12-11] MEDS ORDERED: ATROPINE SULFATE 0.1 MG/ML 10ML SYR IV PRN (08:41)
[2023-12-11] MEDS ORDERED: ePHEDrine sulfate 50 MG/ML AMP IV PRN (08:41)
[2023-12-11] MEDS ORDERED: ceFAZolin 2000MG 2,000 MG/15 ML SYR IV ONE (08:59)
[2023-12-11] MEDS: ACETAMINOPHEN 500 MG TAB PO SCH ×3 (09:00→21:07)
[2023-12-11] MEDS: SACCHAROMYCES BOULARDII 250 MG CAP PO SCH ×2 (09:00→21:07)
[2023-12-11] MEDS: CHOLECALCIFEROL 25 MCG (1000 UNITS) TAB PO SCH (09:00)
[2023-12-11] MEDS: CALCIUM 600MG + VIT D 400 IU TAB PO SCH (09:00)
--- NOTE | 2023-12-11 09:08 | Post Operative Brief Note ---
Immediate Post Op Note v1 Date of Surgery December 11, 2023 Pre & Post Diagnosis Operation Date: 12/11/23 07:30 Pre-Op Diagnosis: Osteoporotic Fracture of Left Hip Post-Op Diagnosis: Osteoporotic Fracture of Left Hip I identified the patient and participated in the time-out.: Yes Procedure Operation Date: 12/11/23 07:30 Actual Procedures p Left Hip Cephalomedullary Nail(Left) - Edmund Patrick DO Surgeon Edmund Patrick, Rocket Engine Mechanic none Estimated Blood Loss 50 Findings Consistent with Post-Op Diagnosis see dictation Drains Deluca Catheter (arrived to OR with deluca catheter intact) Complications none
--- NOTE | 2023-12-11 09:19 | Operative Report ---
Post Operative Report Pre & Post Diagnosis Operation Date: 12/11/23 07:30 Pre-Op Diagnosis: Osteoporotic Fracture of Left Hip Post-Op Diagnosis: Osteoporotic Fracture of Left Hip I identified the patient and participated in the time-out.: Yes Procedure Operation Date: 12/11/23 07:30 Actual Procedures p Left Hip Cephalomedullary Nail(Left) - Edmund Patrick DO Surgeon Edmund Patrick DO Portfolio Lead none Estimated Blood Loss 50 Findings Consistent with Post-Op Diagnosis See dictation Specimens None Complications None Indications 78-year-old female pleasantly demented presenting after sustaining a ground- level fall injuring her left hip. In the emergency department radiographs were obtained demonstrating displaced left intertrochanteric femur fracture. She was admitted medical service and orthopedics was consulted for operative management. Prior to surgery I had a lengthy discussion with her son who is power of immigration attorney regarding risk benefits potential complications of left hip cephalomedullary nail. After reviewing these he elected proceed with surgical intervention and written consent was obtained. Description of Procedure Implants: Synthes TFNA 10 mm x 170 mm 130 degree left, 90 mm TFNA fenestrated screw, 5 mm x 34 mm locking screw Procedure: Patient was appropriate marked and identified in the preoperative holding area. They were then taken back to the operative suite where they received anesthesia as well as antibiotics per protocol. They were then transferred over to the manual fracture table. Using the assistance of fluoroscopy the fracture was reduced to a satisfactory position. The patient was then prepped and draped in standard orthopedic fashion timeout was then performed. A 3 cm incision was then made just superior to the tip of the trochanter through the skin subcutaneous tissue and gluteal fascia. A threaded guidewire was then inserted through the tip the trochanter into the medullary canal. Its position was confirmed on AP and lateral fluoroscopy. Canal opening reamer was then used. A 10 mm x 170 mm cephalomedullary nail was then inserted. Proximal outrigger was then attached and incision was made for the lag screw through the skin subcutaneous tissue and IT band fascia. Guide was then advanced down to the lateral cortex. A threaded guidewire was then inserted through the lateral cortex into the femoral head and a center center position just beneath the subchondral bone. Length was measured. A tapered reamer was then used to ream to 90 mm. A 90 mm fenestrated screw was then inserted and then the device was then compressed and locked statically at the proximal aspect. Incision was then made for the distal interlocking screw through skin subcutaneous tissue and IT band fascia. Drill was then used to drill bicortically and a 34 mm locking screw was then inserted. Proximal aiming arm was then removed. Final radiographs were obtained demonstrating satisfactory reduction of the fracture and positioning of the implant. Wounds were then copiously irrigated using normal saline solution. Deep fascia was closed using 0 Vicryl suture followed by 2-0 Vicryl for subcutaneous tissue and chanel for the skin. Sterile dressing of Xeroform 4 x 4 gauze and Tegaderm was then applied. Patient tolerated the procedure well was taken recovery room in hemodynamically stable condition. I attest to the content of the Intraoperative Record and any orders documented therein. Any exceptions are noted below.
--- NOTE | 2023-12-11 09:27 | Fluoroscopy Report ---
FL hip LT 2-3V CLINICAL HISTORY: LEFT IM NAIL TECHNIQUE: 3 views were obtained with the C-arm in the OR with the above procedure. Total fluoroscopy time was 53.0 seconds. Radiation dose was 0.65 mGy. Comparison: Comparison is made to CT head 12/10/2023 FINDINGS/IMPRESSION: Intraoperative images were obtained of left trochanteric nail placement. Please correlate with intraoperative fluoroscopy and operative report. ACT 112: Negative or not required by law. Electronically signed by: Aki Garcia M.D. 12/11/2023 9:25 AM
--- NOTE | 2023-12-11 09:53 | Anesthesiology Progress Note ---
Date of Service December 11, 2023 Anesthesia Post Procedure Vital Signs Vital Signs: Temp Pulse Pulse Pulse Pulse Resp BP 12/11/23 09:50 97.3 F L 57 L 13 12/11/23 09:40 56 L 21 12/11/23 09:30 54 L 12 12/11/23 09:20 51 L 13 12/11/23 09:11 99.1 F 60 22 12/11/23 07:51 64 12/11/23 02:34 98.1 F 57 L 18 12/11/23 02:16 12/10/23 22:35 98.4 F 57 L 18 12/10/23 22:32 62 12/10/23 19:16 98.1 F 74 18 12/10/23 17:07 66 12/10/23 16:47 98.4 F 69 16 12/10/23 15:00 110/57 L 12/10/23 15:00 74 18 12/10/23 14:35 99.9 F H 64 20 12/10/23 14:31 66 22 12/10/23 14:31 163/71 H 12/10/23 14:00 69 17 12/10/23 14:00 123/59 L 12/10/23 13:00 68 17 12/10/23 13:00 139/68 12/10/23 12:30 65 23 12/10/23 12:30 136/71 12/10/23 12:00 70 13 12/10/23 12:00 165/78 H 12/10/23 11:30 64 17 12/10/23 11:30 174/74 H 12/10/23 11:09 61 20 12/10/23 11:09 166/108 H 12/10/23 11:08 60 12/10/23 11:08 151/78 H 12/10/23 10:47 97.5 F L 63 20 182/93 H 12/10/23 10:22 60 12/10/23 10:08 59 L 19 BP Pulse Ox O2 Del Method O2 Flow Rate 12/11/23 09:50 112/56 L 97 Room Air 12/11/23 09:40 108/59 L 99 Room Air 12/11/23 09:30 105/48 L 98 Room Air 12/11/23 09:20 97/50 L 97 Oxymask 3 12/11/23 09:11 113/53 L 100 Oxymask 6 12/11/23 07:51 12/11/23 02:34 159/73 H 97 Room Air 12/11/23 02:16 Room Air 12/10/23 22:35 135/73 97 Room Air 12/10/23 22:32 12/10/23 19:16 148/62 H 97 Room Air 12/10/23 17:07 12/10/23 16:47 140/67 99 Room Air 12/10/23 15:00 12/10/23 15:00 12/10/23 14:35 163/71 H 96 Room Air 12/10/23 14:31 99 12/10/23 14:31 12/10/23 14:00 98 12/10/23 14:00 12/10/23 13:00 12/10/23 13:00 12/10/23 12:30 12/10/23 12:30 12/10/23 12:00 12/10/23 12:00 12/10/23 11:30 100 12/10/23 11:30 12/10/23 11:09 100 12/10/23 11:09 12/10/23 11:08 99 12/10/23 11:08 12/10/23 10:47 95 Room Air 12/10/23 10:22 12/10/23 10:08 98 Transfer of Care Handoff Completed per policy Notes Mental Status: alert / awake / arousable and participated in evaluation Patient Amnestic to Procedure: Yes Nausea / Vomiting: adequately controlled Pain: adequately controlled Airway Patency, RR, SpO2: stable & adequate BP & HR: stable & adequate Hydration State: stable & adequate Neuraxial Anesthesia: was administered and sensory block is resolving Anesthetic Complications: no major complications apparent and Pt Satisfied with anesthetic care
--- NOTE | 2023-12-11 09:57 | Electrocardiogram Report ---
Test Reason : Blood Pressure : / mmHG Vent. Rate : 059 BPM Atrial Rate : 059 BPM P-R Int : 154 ms QRS Dur : 082 ms QT Int : 450 ms P-R-T Axes : 043 028 053 degrees QTc Int : 445 ms Sinus bradycardia Otherwise normal ECG When compared with ECG of 09-JUN-2023 11:06, No significant change was found Confirmed by nAt Ozuna ([id number]) on 12/11/2023 9:57:03 AM Referred By: REFERRED SELF Confirmed By:Ant Ozuna
[2023-12-11] MEDS: FAMOTIDINE 20 MG TAB PO SCH ×2 (12:24→21:07)
--- NOTE | 2023-12-11 13:09 | Hospitalist Progress Note ---
Date of Service December 11, 2023 Assessment & Plan (1) Closed fracture of left hip: Plan: S/p cephalomedullary nail with ortho Dr. Patrick 12/11 Acetaminophen 1g PO TID Morphine 1 to 2 mg q.3 hourly PRN for breakthrough pain Zofran as needed Bowel regimen in place Durham catheter placed - remove per protocol PT/OT eval pending (2) Acute UTI (urinary tract infection): Plan: Urine culture 12/10 positive for GNR, blood culture 12/10 pending Ceftriaxone 1 g daily, tailor based on culture sensitivities (3) Osteoporosis: Plan: Noted on patient history, last DEXA scan in external application records notes osteoporosis 04/28/2015 involving L and R femur necks - appears patient previously on Fosamax Vit D level pending for 12/12 Continue calcium-vitamin D (4) Osteoporotic fracture of left hip: (5) HTN (hypertension): Plan: Continue home amlodipine 2.5 mg daily Continue home lisinopril 2.5 mg daily (6) Hypothyroidism: Plan: Continue home levothyroxine 25 mcg daily (7) Esophageal reflux: Plan: Continue home famotidine 20 mg twice daily Continue home pantoprazole 20 mg daily Plan VTE prophylaxis - ASA 81mg BID per ortho Diet - regular, easy to chew Disposition - admit to med/tele Admission and Anticipated Discharge Date Admission Date: December 10, 2023 Subjective Limited history due to dementia. Denies any signficant pain. Review of Systems Review of Systems: Unobtainable due to cognitive status (Dementia) Physical Exam Physical Exam: Patient seen postoperatively General: Nontoxic-appearing, NAD Cardiovascular: RRR, no M/R/G Pulmonary: CTAB, no W/R/R Abdomen: Soft, NT/ND, no guarding : Durham in place draining clear yellow urine Extremities: No pedal edema Integumentary: Left lateral hip with c/d/i bandages Neurologic: Oriented to first and last name, unable to provide date, oriented to location - able to say in [facility], not oriented to time Psychiatric: Appropriate mood/affect Results & Data Results & Data Vital Signs (Past 12 Hours) Vital Signs Temp Pulse Pulse Pulse Pulse Resp BP 12/11/23 11:15 36.6 C 53 L 16 133/63 12/11/23 10:49 36.4 C L 58 L 16 130/85 12/11/23 10:30 57 L 16 122/56 L 12/11/23 10:15 56 L 16 107/57 L 12/11/23 10:00 57 L 12 113/60 12/11/23 09:50 36.3 C L 57 L 13 112/56 L 12/11/23 09:40 56 L 21 108/59 L 12/11/23 09:30 54 L 12 105/48 L 12/11/23 09:20 51 L 13 97/50 L 12/11/23 09:11 37.3 C 60 22 113/53 L 12/11/23 07:51 64 12/11/23 02:34 36.7 C 57 L 18 159/73 H 12/11/23 02:16 Pulse Ox O2 Del Method O2 Flow Rate 12/11/23 11:15 95 Room Air 12/11/23 10:49 97 Room Air 12/11/23 10:30 97 Room Air 12/11/23 10:15 97 Room Air 12/11/23 10:00 97 Room Air 12/11/23 09:50 97 Room Air 12/11/23 09:40 99 Room Air 12/11/23 09:30 98 Room Air 12/11/23 09:20 97 Oxymask 3 12/11/23 09:11 100 Oxymask 6 12/11/23 07:51 12/11/23 02:34 97 Room Air 12/11/23 02:16 Room Air Laboratory Results Urine culture 12/10 positive for GNR, blood culture 12/10 pending Diagnostic Findings Hip XR/fluoro 12/11: FINDINGS/IMPRESSION: Intraoperative images were obtained of left trochanteric nail placement. Please correlate with intraoperative fluoroscopy and operative report. PG Care Time/CCT Total # of Minutes Spent Total Time Spent with Patient: Total time spent is greater than 50% in coordination of care (as documented) at patient's floor/unit and/or counseling patient: Coding Level of Care Code 16618 SUB INP/OBS CARE 3/50MIN Diagnoses Closed fracture of left hip S72.002A Encounter type: initial encounter Acute UTI (urinary tract infection) N39.0 Osteoporosis M81.0 Osteoporotic fracture of left hip M80.052A Essential hypertension I10 Hypertension type: essential hypertension Hypothyroidism E03.9 Esophageal reflux K21.9 (1) Closed fracture of left hip Encounter type: initial encounter Qualified Code(s): S72.002A - Fracture of unspecified part of neck of left femur, initial encounter for closed fracture (5) HTN (hypertension) Hypertension type: essential hypertension Qualified Code(s): I10 - Essential (primary) hypertension
[2023-12-11] MEDS: SODIUM CHLORIDE 0.9% 1,000 ML IV SCH (15:16)
[2023-12-11] MEDS: cefTRIAXone SODIUM 1,000 MG in DEXTROSE 5 % MINI-B 50 ML IV SCH (15:16)
[2023-12-11] MEDS: PANTOprazole 40 MG TAB PO SCH (15:17)
[2023-12-11] MEDS: ceFAZolin 2000MG 2,000 MG/15 ML SYR IV SCH (16:28)
[2023-12-11] MEDS: LACTATED RINGER'S 1,000 ML IV SCH (16:34)
[2023-12-11] MEDS: ASPIRIN 81 MG ECTAB PO SCH (21:07)
[2023-12-12] MEDS: ceFAZolin 2000MG 2,000 MG/15 ML SYR IV SCH (00:31)
[2023-12-12] MEDS: MoRPHine SULFATE 2 MG/ML CARP IV PRN ×4 (00:51→19:50)
[2023-12-12] MEDS: SODIUM CHLORIDE 0.9% 1,000 ML IV SCH (05:30)
[2023-12-12] MEDS: LEVOTHYROXINE SODIUM 25 MCG TABLET PO SCH (06:36)
--- NOTE | 2023-12-12 06:57 | Orthopedic Progress Note ---
Date of Service December 12, 2023 Assessment & Plan (1) Osteoporotic fracture of left hip: Plan: POD#1 left trochanteric femoral nail -PT/OT-WBAT -AM labs pending -Pain management as written -DVT prophylaxis-SCDs, aspirin 81mg BID -D/C planning-Plan on return to [facility] at d/c. Orthopedics will sign off at this time. Please call with any questions or concerns. Patient [place] with [place]. Patrick [place] [facility] [place]. She can call [phone] for an appointment. Admission and Anticipated Discharge Date Admission Date: December 10, 2023 Subjective Patient resting in bed comfortably. Denies significant pain. Answers some questions. No chest pain, sob, CABRERA, dizziness. Review of Systems Review of Systems: All systems reviewed & are unremarkable except as noted in Subjective Physical Exam Physical Exam: Left hip: Dressing is c/d/i. Compartments soft and non tender. No calf tenderness. Toes are mobile. Distally n/v status and sensation grossly intact. Results & Data Vital Signs (Past 12 Hours) Vital Signs Temp Pulse Pulse Resp BP Pulse Ox O2 Del Method 12/12/23 03:24 36.6 C 62 18 116/64 94 Room Air 12/11/23 22:23 68 12/11/23 22:12 36.5 C 71 17 109/65 97 Room Air 12/11/23 19:50 36.8 C 72 17 147/75 H 98 Room Air
[2023-12-12 07:09] LABS: Basophils # (auto) 0.03 K/uL (0.00-0.20); Basophils % (auto) 0.4 %; Eosinophils # (auto) 0.04 K/uL (0.00-0.50); Eosinophils % (auto) 0.5 %; Hemoglobin 9.9 g/dl (12.0-16.0); Immature Granulocytes # (auto) 0.06 K/uL (0.01-0.20); Immature Granulocytes % (auto) 0.8 %; Lymphocytes # (auto) 0.92 K/uL (1.20-3.40); Lymphocytes % (auto) 11.6 %; Mean Corpuscular Hemoglobin 29.7 pg (25.0-34.0); Mean Corpuscular Volume 90.1 fL (80.0-100.0); Mean Platelet Volume 9.5 fL (9.4-12.4); Monocytes # (auto) 0.86 K/uL (0.11-0.59); Monocytes % (auto) 10.9 %; Neutrophils # (auto) 6.01 K/uL (1.40-6.50); Neutrophils % (auto) 75.8 %; Platelet Count 189 K/uL (130-400); RDW Coefficient of Variation 12.9 % (11.5-14.5); RDW Standard Deviation 42.5 fL (36.4-46.3); Red Blood Count 3.33 M/uL (4.20-5.40); White Blood Count 7.92 K/ul (4.8-10.8)
[2023-12-12 07:26] LABS: BUN Creatinine Ratio 21.8 (10-20); Calcium 8.6 mg/dl (8.6-10.3); Creatinine Clr Calc Pharmacy 64.3 ml/min; Est GFR (African American) 102.7 ml/min; Est GFR (Non-African American) 88.6 ml/min; Potassium 3.8 mmol/L (3.5-5.1)
[2023-12-12] MEDS: amLODIPine BESYLATE 5 MG TAB PO SCH (08:30)
[2023-12-12] MEDS: CALCIUM 600MG + VIT D 400 IU TAB PO SCH (08:30)
[2023-12-12] MEDS: lisinopril 2.5 MG TAB PO SCH (08:30)
[2023-12-12] MEDS: SACCHAROMYCES BOULARDII 250 MG CAP PO SCH ×2 (08:30→19:52)
[2023-12-12] MEDS: CHOLECALCIFEROL 25 MCG (1000 UNITS) TAB PO SCH (08:31)
[2023-12-12] MEDS: ACETAMINOPHEN 500 MG TAB PO SCH ×3 (08:31→19:51)
[2023-12-12] MEDS: FAMOTIDINE 20 MG TAB PO SCH ×2 (08:31→19:51)
[2023-12-12] MEDS: PANTOprazole 40 MG TAB PO SCH (08:32)
[2023-12-12] MEDS: ASPIRIN 81 MG ECTAB PO SCH ×2 (08:32→19:51)
[2023-12-12] MEDS: cefTRIAXone SODIUM 1,000 MG in DEXTROSE 5 % MINI-B 50 ML IV SCH (13:01)
--- NOTE | 2023-12-12 14:34 | Hospitalist Progress Note ---
Date of Service December 12, 2023 Assessment & Plan (1) Closed fracture of left hip: Plan: S/p cephalomedullary nail with ortho Dr. Patrick 12/11 Hgb 13.1--> 9.9, likely Acute blood loss anemia Acetaminophen 1g PO TID Morphine 1 to 2 mg q.3 hourly PRN for breakthrough pain Bowel regimen in place Durham catheter placed - remove per protocol PT/OT - Recommend rehab - pt is a bed hold at [facility], per CM note, needs 3 midnight stay prior to d/c (2) Acute UTI (urinary tract infection): Plan: Urine culture: pansensitive e.coli Will continue Ceftriaxone 1 g daily (first day 12/10), can discharge with PO Blood cultures: no growth 48 hrs (3) Osteoporosis: Plan: Noted on patient history, last DEXA scan in external application records notes osteoporosis 04/28/2015 involving L and R femur necks - appears patient previously on Fosamax Vit D: 30.3 --> PO supplementation Continue calcium-vitamin D (4) Osteoporotic fracture of left hip: (5) HTN (hypertension): Plan: Continue home amlodipine 2.5 mg daily Continue home lisinopril 2.5 mg daily (6) Hypothyroidism: Plan: Continue home levothyroxine 25 mcg daily (7) Esophageal reflux: Plan: Continue home famotidine 20 mg twice daily Continue home pantoprazole 20 mg daily Plan VTE prophylaxis - ASA 81mg BID per ortho Disposition - continued inpatient stay, medically stable Admission and Anticipated Discharge Date Admission Date: December 10, 2023 Subjective Patient with underlying confusion/dementia. Does answer some questions but did not remember she broke her hip. expresses no acute concerns Tele - 60-100 Review of Systems Review of Systems: Unobtainable due to cognitive status Physical Exam Physical Exam: General: NAD, VS as above Resp: normal respiratory effort, lungs clear to auscultation CV: RRR, no murmur, Abd: normal bowel sounds, non tender, no hepatosplenomegaly Extremities: Moves all extremities, no edema. Hip dressing c/d/i. Félix over right hand Results & Data Results & Data Vital Signs (Past 12 Hours) Vital Signs Temp Pulse Resp BP Pulse Ox O2 Del Method 12/12/23 11:31 36.4 C L 73 18 115/69 96 Room Air 12/12/23 07:22 36.7 C 86 18 125/76 94 Room Air 12/12/23 03:24 36.6 C 62 18 116/64 94 Room Air Laboratory Results CBC, chemistry and vit D reviewed PG Care Time/CCT Total # of Minutes Spent Total Time Spent with Patient: Total time spent is greater than 50% in coordination of care (as documented) at patient's floor/unit and/or counseling patient: Coding Level of Care Code 71523 SUB INP/OBS CARE 2/35MIN Diagnoses Closed fracture of left hip S72.002A Encounter type: initial encounter Acute UTI (urinary tract infection) N39.0 Osteoporosis M81.0 Osteoporotic fracture of left hip M80.052A Essential hypertension I10 Hypertension type: essential hypertension Hypothyroidism E03.9 Esophageal reflux K21.9 (1) Closed fracture of left hip Encounter type: initial encounter Qualified Code(s): S72.002A - Fracture of unspecified part of neck of left femur, initial encounter for closed fracture (5) HTN (hypertension) Hypertension type: essential hypertension Qualified Code(s): I10 - Essential (primary) hypertension
[2023-12-13] MEDS: MoRPHine SULFATE 2 MG/ML CARP IV PRN (02:29)
[2023-12-13] MEDS: LEVOTHYROXINE SODIUM 25 MCG TABLET PO SCH (06:36)
[2023-12-13 06:38] LABS: Hematocrit (blood only) 26.1 % (37.0-47.0); Hemoglobin 8.6 g/dl (12.0-16.0); Mean Corpuscular Hemoglobin 29.6 pg (25.0-34.0); Mean Corpuscular Volume 89.7 fL (80.0-100.0); Mean Platelet Volume 10.1 fL (9.4-12.4); Platelet Count 195 K/uL (130-400); RDW Coefficient of Variation 12.9 % (11.5-14.5); RDW Standard Deviation 42.5 fL (36.4-46.3); Red Blood Count 2.91 M/uL (4.20-5.40); White Blood Count 6.66 K/ul (4.8-10.8)
[2023-12-13] MEDS: PANTOprazole 40 MG TAB PO SCH (08:29)
[2023-12-13] MEDS: lisinopril 2.5 MG TAB PO SCH (08:29)
[2023-12-13] MEDS: SACCHAROMYCES BOULARDII 250 MG CAP PO SCH (08:29)
[2023-12-13] MEDS: amLODIPine BESYLATE 5 MG TAB PO SCH (08:30)
[2023-12-13] MEDS: CHOLECALCIFEROL 25 MCG (1000 UNITS) TAB PO SCH (08:31)
[2023-12-13] MEDS: ASPIRIN 81 MG ECTAB PO SCH (08:31)
[2023-12-13] MEDS: FAMOTIDINE 20 MG TAB PO SCH (08:31)
[2023-12-13] MEDS: CALCIUM 600MG + VIT D 400 IU TAB PO SCH (08:31)
[2023-12-13] MEDS: ACETAMINOPHEN 500 MG TAB PO SCH ×2 (08:34→15:24)
[2023-12-13] MEDS ORDERED: DOCUSATE SODIUM/SENNA 50/8.6MG TAB PO SCH (09:00)
--- NOTE | 2023-12-13 12:32 | Discharge Summary ---
Discharge Summary Date of Service December 13, 2023 Notes For Next Care Provider Hip fracture instructions per orthopedics, including 81 mg aspirin twice daily for DVT prophylaxis Continue 3 days of Keflex for completion of UTI treatment Patient did not have a bowel movement while inpatient, continue aggressive bowel regimen Medication Changes From Visit Aspirin 81 mg twice daily Keflex 500 mg twice daily x 3 days Admission HPI Per Admitting Provider Kolton Elizabeth is an 78-year-old female who presents to the ER after a syncopal fall. Unable to get any history from patient due to underlying dementia. Unable to get any history from [facility] as no-one picked up the phone. Unable to get any history from patient's son - voicemajigar left. Principal Dx & Hospital Course #1 = Principal Diagnosis (1) Closed fracture of left hip: S/p cephalomedullary nail with ortho Dr. Patrick 12/11 Hgb 13.1--> 9.9, likely Acute blood loss anemia -Recommend outpatient CBC in 1 week Acetaminophen 1g PO TID for pain Continue bowel regimen at discharge [place] catheter placed - remove per protocol PT/OT - Recommend rehab -Patient to return to [facility] (2) Acute UTI (urinary tract infection): Urine culture: pansensitive e.coli Will continue Ceftriaxone 1 g daily (first day 12/10), discharge with PO Keflex 500 mg twice daily x 3 days Blood cultures: no growth 48 hrs (3) Osteoporosis: Noted on patient history, last DEXA scan in external application records notes osteoporosis 04/28/2015 involving L and R femur necks - appears patient previously on Fosamax Vit D: 30.3 --> PO supplementation Continue calcium-vitamin D (4) Osteoporotic fracture of left hip: (5) HTN (hypertension): Continue home amlodipine 2.5 mg daily Continue home lisinopril 2.5 mg daily (6) Hypothyroidism: Continue home levothyroxine 25 mcg daily (7) Esophageal reflux: Continue home famotidine 20 mg twice daily Continue home pantoprazole 20 mg daily Plan VTE prophylaxis - ASA 81mg BID per ortho Disposition -discharge to [facility] Discharge Exam General: NAD, VS as above, more alert today Resp: normal respiratory effort, lungs clear to auscultation CV: RRR, no murmur, Abd: normal bowel sounds, non tender, no hepatosplenomegaly Extremities: Moves all extremities, no edema. Hip dressing c/d/i. Updated Medication List Medication Instructions Recorded Confirmed Type cholecalciferol (vitamin D3) 25 1,000 units PO QAM 06/05/19 12/10/23 History mcg (1,000 unit) capsule (Vitamin D3) multivitamin 1 tab PO QAM 06/05/19 12/10/23 History loratadine 10 mg capsule 10 mg PO DAILY PRN allergy symptoms 08/04/20 12/10/23 History Saccharomyces boulardii 250 mg 250 mg PO BID #20 caps 10/23/20 12/10/23 Rx capsule (Florastor) famotidine 20 mg tablet 20 mg PO BID #20 tabs 10/23/20 12/10/23 Rx rizatriptan 10 mg tablet (Maxalt) 10 mg PO DIRECTED PRN Migraine 06/02/21 12/10/23 History Headache levothyroxine 25 mcg tablet 25 mcg PO DAILY #14 tabs 07/09/21 12/10/23 Rx pantoprazole 20 mg tablet,delayed 20 mg PO QAM #90 tabs 07/29/21 12/10/23 Rx release amlodipine 2.5 mg tablet 2.5 mg PO DAILY 12/10/23 12/10/23 History bisacodyl 10 mg rectal suppository 10 mg MO DAILY PRN Constipation 12/10/23 12/10/23 History (Dulcolax (bisacodyl)) calcium carbonate 500 mg-vitamin 1 tab PO DAILY 12/10/23 12/10/23 History D3 5 mcg (200 unit) tablet (Oyster Shell Calcium-Vitamin D3) lisinopril 2.5 mg tablet 2.5 mg PO DAILY 12/10/23 12/10/23 History magnesium hydroxide 400 mg/5 mL 2,400 mg PO DAILY PRN Constipation 12/10/23 12/10/23 History oral suspension (Milk of Magnesia) sodium phosphates 19 gram-7 118 ml MO DAILY PRN Constipation 12/10/23 12/10/23 History gram/118 mL enema (Enema) triamcinolone acetonide 0.1 % 1 applic topical TID rash 12/10/23 12/10/23 History topical cream acetaminophen 500 mg tablet 1,000 mg (2 x 500 mg) PO TID 30 12/13/23 Rx (Tylenol Extra Strength) days #180 tabs aspirin 81 mg tablet,delayed 81 mg PO BID 30 days #60 tabs 12/13/23 Rx release cephalexin 500 mg capsule 500 mg PO BID 3 days #6 caps 12/13/23 Rx sennosides 8.6 mg-docusate sodium 1 tab PO QAM 30 days #30 tabs 12/13/23 Rx 50 mg tablet (Senokot-S) Hospital Stay Data Consultations 12/10/23 11:16 ED Decision to Admit Stat 12/10/23 12:33 Consult Orthopedic Surgery Routine Procedures Performed Operation Date: 12/11/23 07:30 Actual Procedures p Left Hip Cephalomedullary Nail(Left) - Edmund Patrick, DO Diagnostic Imagining Performed 12/10/23 10:01 CT cervical spine wo con Stat CT head/brain wo con Stat 12/10/23 15:07 CT hip LT wo con Urgent 12/11/23 [place] hip LT 2-3V Routine Pending Results Patient Have Any Pending Studies at Discharge: No (Blood cultures, no growth at 48-hour) Discharge Instructions Given to Patient (Per Discharging Provider) You were hospitalized with a hip fracture, this was repaired by Dr. Patrick on 12/11/2023. Additional instructions regarding the hip fracture can be found below. -Recommend acetaminophen 1 g p.o. TID for pain control until able to ambulate more regularly. DVT prophylaxis with aspirin 81 mg twice daily, continue this until told otherwise by orthopedics Started on p.o. supplementation for vitamin D deficiency Also was treated for UTI, ceftriaxone x 4 days. Should continue p.o. course of Keflex 500 mg BID x3 days, first dose 12/14/2023 AM Blood cultures are pending, but negative at 48 hours Acute blood loss anemia from surgery, recommend recheck CBC in 1 week No bowel movement during admission, continue aggressive bowel regimen No changes to home medication Total Time Total Time Spent Total Time Spent (In Minutes): Time spend day of discharge 40 minutes including direct patient care, medication reconciliation, documentation, review of labs and images, and coordination of care. Coding Level of Care Code 32781 INP/OBS DISCH >30 MIN Diagnoses Closed fracture of left hip S72.002A Encounter type: initial encounter Acute UTI (urinary tract infection) N39.0 Osteoporosis M81.0 Osteoporotic fracture of left hip M80.052A Essential hypertension I10 Hypertension type: essential hypertension Hypothyroidism E03.9 Esophageal reflux K21.9
[2023-12-13] MEDS: cefTRIAXone SODIUM 1,000 MG in DEXTROSE 5 % MINI-B 50 ML IV SCH (14:16)
== END 2023-12-13 16:46 | DRG 481 ==
LOC: ED 09:55 → SUATTDRO 11:54 → EDINP 11:54 → 2N 12:34